=== PATIENT | female | born 1980 ===

== ENCOUNTER → 2022-01-10 13:57 | Outpatient (BNVA) | payer BC, MEDICAID, SELFPAY | PROVIDERS: PCP Family Medicine; Visit Provider Internal Medicine Gastroenterology | DX: R11.2 Nausea with vomiting, unspecified (principal); K90.0 Celiac disease; R11.15 Cyclical vomiting syndrome unrelated to migraine ==

== ENCOUNTER → 2022-01-10 13:57 | Outpatient (AMB) | payer BC, MEDICAID, SELFPAY ==
--- NOTE | 2022-01-10 14:00 | A.OFFVIS_ITS ---
Vital Signs 01/10/22 14:10 Height 5 ft 6 in Weight 172 lb BMI 27.7 BP 126/80 Blood Pressure Location Lt brachial Position Sitting Pulse 82 Intake Visit Reasons: hx diverticulosis, colon polyps, hip pain Intake Note: Roxanne presents in the office for Diverticulosis, Hx colon polyps and hip pain. CC: Hx for Precancerous polyps. Hip pain has been increasing since last night. Allergies cephalexin [CEPHALEXIN] Allergy (Intermediate, Verified 12/08/23 22:58) Rash erythromycin base [ERYTHROMYCIN BASE] Allergy (Intermediate, Verified 12/08/23 22:58) Rash/vomiting haloperidol [From HALDOL] Allergy (Intermediate, Verified 12/08/23 22:58) EYE ISSUES meclizine [MECLIZINE] Allergy (Intermediate, Verified 12/08/23 22:58) Vomiting Penicillins [PENICILLINS] Allergy (Intermediate, Verified 12/08/23 22:58) Rash/vomiting promethazine [Phenergan] Allergy (Intermediate, Verified 12/08/23 22:58) Vomiting Sulfa (Sulfonamide Antibiotics) Allergy (Intermediate, Verified 12/08/23 22:58) Rash sulfamethoxazole [From BACTRIM] Allergy (Intermediate, Verified 12/08/23 22:58) Rash trimethoprim [From BACTRIM] Allergy (Intermediate, Verified 12/08/23 22:58) Rash famotidine Allergy (Mild, Verified 12/08/23 22:58) Vomiting lorazepam [From ATIVAN] Adverse Reaction (Intermediate, Verified 12/08/23 22:58) PANIC ATTACKS/INCREASED ANXIETY methylprednisolone [METHYLPREDNISOLONE] Adverse Reaction (Intermediate, Verified 12/08/23 22:58) HYSTERIA, Psychosis prednisone [PREDNISONE] Adverse Reaction (Intermediate, Verified 12/08/23 22:58) Hallucinations sertraline [From ZOLOFT] Adverse Reaction (Intermediate, Verified 12/08/23 2 2:58) Depression doxycycline Adverse Reaction (Verified 12/08/23 22:58) Vomiting steroids Adverse Reaction (Mild, Uncoded 12/08/23 22:58) psychosis Medication List - Last Reconciled 01/10/22 by Carissa Llamas MD albuterol sulfate 90 mcg/actuation 1 inh inhalation Q4-6H PRN aspirin (Adult Aspirin Regimen) 81 mg PO DAILY baclofen 25 mg PO TID carbidopa 25 mg PO TID cholecalciferol (vitamin D3) 50 mcg PO DAILY docusate sodium (Colace) 100 mg PO DAILY drospirenone (contraceptive) (Slynd) 1 tab PO DAILY duloxetine 60 mg PO DAILY gabapentin 900 mg PO TID PRN levocetirizine 10 mg PO BID methylphenidate HCl 5 mg PO BID ondansetron 8 mg PO Q12H oxcarbazepine 300 mg PO TID oxycodone myristate ER (Xtampza ER) 9 mg PO BID sennosides (senna) 8.6 mg PO BID simethicone (Gas-X Extra Strength) 250 mg PO BID PRN HPI HPI hx diverticulosis, colon polyps, hip pain: Details: Urgent GI clinic visit for this 41 YF due to recurrent vomiting, abdominal gas and worsening hip pain Patient is followed in GI for dysphagia, odynophagia and celiac sprue. Last GI visit was in Jun 2019 for her colonoscopy 01/03/22 PT spoke to GI RN: pt reports multiple system issues. She has hip/leg/rectal pain which she has had x 2 years following a tick bite. Pt reports cardiac issue, cysts on her spine, high calcium level resulting in bone pain and dehydration. Pt receiving IV fluids weekly at [facility] HX tubular adenoma, diverticulosis. rectal pain with BM which pt describes as long and thin . Pt denies blood in stool or on paper. Advised pt to call her neurologist regarding hip and leg pain To contact her PCP for elevated Ca levels Pt asking for repeat colonoscopy, only wants to see Dr Llamas Pt scheduled for 01/18/[address] Llamas ?CHRONIC ILLNESSES: endometriosis, celiac disease, hip dysplasia, subcu taneous scalp nodules, cysts, MS, Mast cell disorder ?LABS IN [facility]: 04/30/19 NORMAL CBC WITH ELEVATED EOSINOPHIL COUNT OF 5.3%, NORMAL CHEM PANEL AND LFTS, ?ENDOSCOPIC STUDIES: 06/2019 COLONOSCOPY SHOWED: One 4-5 mm hyperplastic polyp removed Moderate diverticulosis seen in the sigmoid colon. Plan: Await pathology results Patient to schedule a FU appointment in the GI Clinic with Carissa Llamas M.D. 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 04/30/19 EGD SHOWED: ?ESOPHAGUS: Circumferential ulceration with thick exudate with adherent food in ?the proximal esophagus at 20 to 25 cms. Ulceration is likely due to pill ?esophagitis related to use of Doxycycline. Adherent food was scrapped off and ?biopsies were obtained. ?STOMACH: Undigested food in the stomach. ?DUODENUM: Normal ?Plan: ?Await pathology results ?Change doxycycline tablet to liquid formulation. ?Start sucralfate twice daily ?Patient to schedule a FU appointment in the GI Clinic with Carissa Llamas M.D ?Above findings were reviewed with the patient and her ?ADDENDUM: BIOPSIES SHOWED: ?Esophagus, proximal, biopsy: Active esophagitis with ulcer, fibrinopurulent exudate and superficial fungal pseudohyphae and yeast forms consistent with Aleksandra species(highlighted by a PASD stain); negative for intestinal metaplasia and dysplasia. ?Biopsy results discussed with the pt by phone and she was prescribed Fluconazole for esophageal Candidiasis. ?TODAY'S VISIT ?Patient is accompanied by her . Diagnosed with Mast cell activiation syndrome - fu with Dr Callahan Also followed in Mast cell Center at [facility] in [place]. When she has vomiting, she notes pain in the back of the head radiating all the way to her rectum Has constipation alternating with diarrhea. Feels sick if she does not have a BM. Notes rectal pressure and unable to empty completely. Intermittent leaking. BM are long and thin and come out fast. Sometimes they float or may be fragmented. Hurts to sit on the toilet. Has constipation 2 days in a week and has soft and thin BMs the remaining week. Takes Colace and senna for constipation. Able to go when she is hydrated. Occasional blood in the stool - ? due to hemorrhoids Has been getting fluids three times a week by Dr Callahan (Disability Manager) Dr Calderon is her yoghurt maker. Notes gas when she gets IV fluids. BM has been thin Having left hip pain for the past year - has been worse for the past month (Hx of congenital hip dyslasia). Unable to sit in the car - has to sit on pillows Hurts more when she has gas pains. 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 Diagnosed with Celiac disease and started a GFD. Taking acetaminophen and Citrizine for Mast cell disease She was on Ocrevus 300 mg IV every 6 months x 4 yrs for MS- stopped and she is being switched to a different medication. PAST VISITS: ?Had constant burning sensation after EGD which has slowly improved. ?Has a constant FB sensation in her throat. ?Continues to have some dysphagia and pdynophagia with a burning sensation in the upper esophagus. ?Having trouble swallowing large pills - gabapentin. ?Has burning sensation with spicy food if it gets stuck ?Finished taking Doxycycline before starting the Fluconazole. ?Appetite is decent. ?Eats a lot if she uses RSO (THC oil). ?Lost a lot of weight over the summer and weight gain of 25 lbs over the past few months. ?Cardiac or pulmonary problems: ?Problems/reaction to anesthetic agents: Denies problems after last EGD. ?History of colon polyps in her dad ?Paternal uncle had stage 4 colon cancer in his 40's. ?She was diagnosed with MS in August 2017 after a spinal tap. ?She is being followed by Dr. Martin (MS specialist) at [facility] and [place]. ?Takes Ocrelizumab (Ocrevus) infusion every 6 months, next infusion is scheduled on Jun 142019. ?PAST GI HISTORY BY REVIEW OF MEDICAL RECORDS: 10/[address] GI [address] note from Dr Dang ([facility]) was reviewed: Pt has a hx of MS, cyclic vomiting syndrome (without symptom free intervals), pancreatitis (presumed related to ETOH), endometriosis, anxiety, postconcussion syndrome, syncope, congenital hip dysplasia, insomnia and marijuana use Cyclical vomiting symptoms improved with carbidopa in the past Patient has chronic nausea and vomiting was felt to be multifactorial - dysautonomia, MS, GERD, possible CVS, marijuana use TCA were not recommended due to dysautonomia, dizziness and borderline QTC at 490 Patient was prescribed omeprazole 20 mg daily. RECORDS FROM [facility] AND [facility]ANNED: 11/2016 EGD AND COLON WERE PERFORMED BY DR LUU: 1. A single patch of gastric ectopic mucosa was seen in the upper 3rd of the esophagus. 2. Stomach and duodenum were normal. 3. A 5 mm sessile polyp was removed from the sigmoid colon. Biopsies showed a tubular adenoma. 4. Internal and external hemorrhoids BIOPSIES SHOWED: 1. Duodenal biopsies showed small bowel mucosa with variable villous blunting and increased intraepithelial lymphocytes. 2. Gastric biopsies showed focal chronic inflammation and no H pylori was detected. 3. Random colon biopsies were normal Mention of intra-abdominal lymphadenopathy on past CT scan PATIENT IS KNOWN TO ME FROM PAST ER VISIT TO [facility] WITH DYSPHAGIA ON 04/30/2019: ?38 YF with Celiac Sprue on a GFD, MS diagnosed in 2017 on 1v infusions every 6 months - next due on Jun 14, Syringomylia, ? Spinal cord tumor, Anxiety and depression, Recurrent MRSA skin infections, Dental caries, UGIB from [facility] in 07/20162. Pt evaluated for 2 day history of dysphagia and odynophagia after she ate a stalk of partially cooked Cauliflower. Symptoms are suggestive of food impaction. Pt may have EOE, esophageal motility disorder, Schatzki's ring or an inflammatory esophageal stricture. ?PLAN: ?FU of dysphgia and odynophagia related to suspected pill esophagitis (due to doxycycline) with superimposed esophageal candidiasis. She discontinued taking doxycycline. Patient is a finishing a 10 day course of fluconazole for esophageal candidiasis. She is requesting repeat EGD to confirm fungal infection has resolved prior to her next Ocrelizumab infusion. Of note- Ocrelizumab is associated with herpes infection in 5-6% of cases. Patient reports being diagnosed with celiac sprue 3 years ago. Course of celiac disease words discussed with her and she was given a patient had out on celiac disease from up-to-date during her previous visit.?? Pt was advised to continue Gluten Free Diet for Celiac Disease PFSH Surgical History Tubal ligation status Hx of colonoscopy History of esophagogastroduodenoscopy (EGD) Family History Father Peripheral arterial disease Maternal Grandfather Peripheral arterial disease Paternal Grandfather Peripheral arterial disease Social History Patient Tobacco Use Status: Current everyday Tobacco user Cigarettes Per Day: 5 Substance Use Type: Marijuana Review of Systems Const Reports fatigue, Denies fever(s), Reports headache(s), Reports weight gain and Denies weight loss Eyes Denies eye discharge and Denies irritation ENT Reports Normal hearing present, Reports dysphagia, Denies dizziness and Reports headache(s) Card Reports chest pain, Reports irregular heart rhythm, Denies leg edema, Denies dyspnea on exertion and Reports other (Palpitations) Resp Denies cough and Denies dyspnea on exertion GI Denies abdominal pain, Reports bloating, Denies change in bowel habits, Reports dysphagia, Reports early satiety, Reports heartburn, Reports nausea and Reports vomiting Denies difficulty voiding and Denies dysuria Musc Denies back pain, Reports arthralgias and Reports other (arthritis) Skin/Breast Denies pruritus, Reports rash and Denies jaundice Neuro Reports Normal hearing present, Denies Abnormal speech present, Denies dizzin ess, Reports headache(s), Reports seizure-like activity and Reports other (Memory issues due to MS) Psych Reports anxiety, Denies depression and Denies panic attacks Endo Denies cold intolerance, Reports fatigue, Denies flushing and Denies heat intolerance Physical Exam Vital Signs: Last Vital Signs Pulse 82 01/10/22 14:10 BP 126/80 01/10/22 14:10 BMI result Body Mass Index 27.7 Const General: healthy appearing and no acute distress Nutritional Appearance: overweight Orientation/consciousness: patient oriented x3 Limitations: physical limitations and wheelchair HEENT Head: Yes normal to inspection Ears: hearing grossly normal bilaterally Eyes Sclerae: sclerae normal Pupils: Equal, round and reactive pupils present Neck Neck: Yes normal visual inspection Chest Chest palpation & inspection: normal inspection of the chest Resp Effort & Inspection: normal respiratory effort Auscultation: clear to auscultation bilaterally Cardio Palpation: normal PMI Rate: regular rate Rhythm: regular rhythm Heart sounds: S1 normal heart sound present, S2 normal heart sound present and no murmurs GI Palpation (GI): Soft to palpation, nontender and No hepatosplenomegaly present Auscultation: normal bowel sounds Rectal Exam - Female: deferred Skin General skin exam: no rashes or lesions noted Neuro General: patient oriented x3, gait normal and moves all extremities Cranial nerves: Yes Equal, round and reactive pupils present and Yes Normal hearing present Speech: No Abnormal speech present Psych Appearance: grossly normal Mental Status: mental status grossly normal Assessment & Plan Assessment & Plan (1) Nausea and vomiting: Code(s): R11.2 - Nausea with vomiting, unspecified Category: Medical (2) Celiac disease: Code(s): K90.0 - Celiac disease Category: Medical (3) Cyclical vomiting syndrome: Code(s): R11.15 - Cyclical vomiting syndrome unrelated to migraine Category: Medical Plan Unfortunate 38 YF with MS complicated by seizure disorder, memory problems, endometriosis, celiac disease, hip dysplasia, subcutaneous scalp nodules, cysts last seen in Jun, 2019. Pt was previously seen for FU of dysphgia and odynophagia related to suspected pill esophagitis (due to doxycycline) with superimposed esophageal candidiasis. She discontinue taking doxycycline. And completed a 10 day course of fluconazole for esophageal candidiasis. Pt requested repeat EGD to confirm fungal infection had resolved prior to her next Ocrelizumab infusion. Of note- Ocrelizumab is associated with herpes infection in 5-6% of cases. Patient reports being diagnosed with celiac sprue year ago and denies having follow-up labs or EGD. Course of celiac disease words discussed with her and she was given a patient had out on celiac disease from up-to-date. 04/2019 EGD was performed and the results as noted above. Pt has a hx of MS, cyclic vomiting syndrome (without symptom free intervals), pancreatitis (presumed related to ETOH), endometriosis, anxiety, postconcussion syndrome, syncope, congenital hip dysplasia, insomnia and hx of marijuana use Cyclical vomiting symptoms improved with carbidopa in the past Patient has chronic nausea and vomiting was felt to be multifactorial - dysautonomia, MS, GERD, possible CVS, marijuana use TCA was not recommended due to dysautonomia, dizziness and borderline QTC at 490 Pt was advised to schedule a sigmoidoscopy for evaluation of rectal pain Orders: Orders Fecal Fat Qualitative 01/10/22 R19.7 - Diarrhea, unspecified, K59.09 - Other constipation Pancreatic Elastase-1 01/10/22 R19.7 - Diarrhea, unspecified, K59.09 - Other constipation Medications: New ondansetron 8 mg PO Q12H simethicone (Gas-X Extra Strength) 250 mg PO BID PRN Coding Level of Care Code Est Pt Level 4 (56388) Diagnoses Nausea and vomiting R11.2 Celiac disease K90.0 Cyclical vomiting syndrome R11.15 Time Spent (min) 45
[2022-01-10 14:10] VITALS: BP 126/80; PULSE 82; BMI 27.7
== END ==
PROVIDERS: PCP Family Medicine; Visit Provider Internal Medicine Gastroenterology
DX: R11.2 Nausea with vomiting, unspecified (principal); K90.0 Celiac disease; R11.15 Cyclical vomiting syndrome unrelated to migraine
CPT/HCPCS: 99499

== ENCOUNTER 2022-02-15 12:32 | Day surgery (SDC) | payer BC, MEDICAID, SELFPAY ==
--- NOTE | 2022-02-15 13:07 | HO.ANESPROP2 ---
[facility] Active Problems Active Problems: All Active Problems (Updated 01/11/22 @ 16:29 by Carissa Llamas MD) Celiac disease (Acute) Dysphagia, pharyngoesophageal phase (Acute) Nausea and vomiting (Acute) Intermittent diarrhea (Acute) Intermittent constipation (Acute) Multiple sclerosis (Acute) Cyclical vomiting syndrome (Acute) Past Medical History Functional capacity: uses cane/walker Family History Family History Father Peripheral arterial disease Maternal Grandfather Peripheral arterial disease Paternal Grandfather Peripheral arterial disease Surgical History Surgical History History of esophagogastroduodenoscopy (EGD) Hx of colonoscopy Tubal ligation status History of Problems with Anesthesia: No Social History Social History Patient Tobacco Use Status: Current everyday Tobacco user Cigarettes Per Day: 5 Use of substances other than those prescribed or required for medical reasons: Yes Substance Use Frequency: Weekly Are you DNR?: No Advance Directives: No Advance Directives Information Provided: Yes Meds Allergies Allergy/AdvReac Type Severity Reaction Status Date / Time cephalexin [CEPHALEXIN] Allergy Intermediate Rash Unverified 02/15/22 13:17 erythromycin base Allergy Intermediate Rash/vomiti Unverified 02/15/22 13:17 [ERYTHROMYCIN BASE] ng haloperidol [From HALDOL] Allergy Intermediate EYE ISSUES Unverified 01/10/22 14:02 meclizine [MECLIZINE] Allergy Intermediate Vomiting Unverified 02/15/22 13:17 Penicillins [PENICILLINS] Allergy Intermediate Rash/vomiti Unverified 02/15/22 13:17 ng promethazine [Phenergan] Allergy Intermediate Vomiting Verified 02/15/22 13:17 Sulfa (Sulfonamide Allergy Intermediate Rash Verified 02/15/22 13:17 Antibiotics) sulfamethoxazole Allergy Intermediate Rash Unverified 02/15/22 13:17 [From BACTRIM] trimethoprim [From BACTRIM] Allergy Intermediate Rash Unverified 02/15/22 13:17 famotidine Allergy Mild Vomiting Verified 02/15/22 13:17 lorazepam [From ATIVAN] AdvReac Intermediate PANIC Unverified 01/10/22 14:02 ATTACKS/INCREASED ANXIETY methylprednisolone AdvReac Intermediate HYSTERIA, Unverified 02/15/22 13:17 [METHYLPREDNISOLONE] Psychosis prednisone [PREDNISONE] AdvReac Intermediate Hallucinati Unverified 02/15/22 13:17 ons sertraline [From ZOLOFT] AdvReac Intermediate Depression Unverified 02/15/22 13:17 doxycycline AdvReac Vomiting Verified 02/15/22 13:17 steroids AdvReac Mild psychosis Uncoded 01/10/22 14:02 Home Medications Medication Instructions Recorded Confirmed Last Taken Type albuterol sulfate 90 mcg/actuation 1 inh inhalation Q4-6H PRN Wheezing 01/10/22 02/15/22 Unknown History breath activated powder inhaler aspirin 81 mg tablet,delayed 81 mg PO DAILY 01/10/22 02/15/22 02/15/22 History release (Adult Aspirin Regimen) baclofen 10 mg tablet 25 mg PO TID 01/10/22 02/15/22 02/15/22 History carbidopa 25 mg tablet 25 mg PO TID 01/10/22 02/15/22 02/15/22 History cholecalciferol (vitamin D3) 50 50 mcg PO DAILY 01/10/22 02/15/22 02/15/22 History mcg (2,000 unit) capsule docusate sodium 100 mg capsule 100 mg PO DAILY 01/10/22 02/15/22 Unknown History (Colace) drospirenone (contraceptive) 4 mg 1 tab PO DAILY 01/10/22 02/15/22 Unknown History (28) tablet (Slynd) duloxetine 60 mg capsule,delayed 60 mg PO DAILY 01/10/22 02/15/22 02/15/22 History release gabapentin 300 mg capsule 900 mg PO TID PRN Pain 01/10/22 02/15/22 02/15/22 History levocetirizine 5 mg tablet 10 mg PO BID 01/10/22 02/15/22 02/15/22 History methylphenidate HCl 5 mg tablet 5 mg PO BID 01/10/22 02/15/22 02/15/22 History ondansetron 8 mg disintegrating 8 mg PO Q12H 01/10/22 02/15/22 Unknown History tablet oxcarbazepine 300 mg tablet 300 mg PO TID 01/10/22 02/15/22 02/15/22 History oxycodone myristate 9 mg capsule 9 mg PO BID 01/10/22 02/15/22 02/15/22 History sprinkle extended release 12 hr(DON'T CRUSH) (Xtampza ER) sennosides 8.6 mg capsule (senna) 8.6 mg PO BID 01/10/22 02/15/22 Unknown History simethicone 125 mg capsule (Gas-X 250 mg PO BID PRN Constipation 01/10/22 02/15/22 Unknown History Extra Strength) tizanidine 4 mg tablet 4 mg PO TID 02/15/22 02/15/22 02/15/22 History Exam Exam Date and Time: February 15, 2022 1307 Airway Mallampati Class: II TM Dist: >3cm Neck ROM: Full Loose/Missing/Broken Teeth: No Heart: RRR Lungs: CTA Assessment and Plan Assessment Anesthesia Assessment: Anesthesia Plan Discussed and Chart Reviewed Final Anesthetic Review History of Problems with Anesthesia: No NPO: Yes ASA Class: III Final Preanesthetic Review: Meds/Allgs Chart Reviewed, Consent Obtained/Reviewed and Anes Risks/Benef Reviewed Patient Risk: Intermediate Procedure Risk: Low Anesthetic Plan Anesthetic Plan: MAC: Disposition: Standard PACU
[2022-02-15 13:20] VITALS: BP 125/64; PULSE 85; RESP 20; TEMP 36.9; O2SAT 97; BMI 27.7
--- NOTE | 2022-02-15 13:31 | MHC.SHP ---
Pre-Procedural Eval Section A Date of Service: 02/15/22 The patient is an INPATIENT: No The History & Physical has been completed within 30 days and I have reviewed it.: No Section B Chief Complaint: Rectal pain Details of Present Illness: rectal pain Relevant Family History (Specify if Yes): No Present Medications: see Short Stay Collaborative assessment Medical History: Significant History ( Celiac disease, multiple sclerosis) History of Previous Operations: Relevant previous surgery/procedure and date(s) (History of esophagogastroduodenoscopy (EGD) Hx of colonoscopy) Allergies: Allergies Allergy/AdvReac Type Severity Reaction Status Date / Time cephalexin [CEPHALEXIN] Allergy Intermediate Rash Unverified 02/15/22 13:17 erythromycin base Allergy Intermediate Rash/vomiti Unverified 02/15/22 13:17 [ERYTHROMYCIN BASE] ng haloperidol [From HALDOL] Allergy Intermediate EYE ISSUES Unverified 01/10/22 14:02 meclizine [MECLIZINE] Allergy Intermediate Vomiting Unverified 02/15/22 13:17 Penicillins [PENICILLINS] Allergy Intermediate Rash/vomiti Unverified 02/15/22 13:17 ng promethazine [Phenergan] Allergy Intermediate Vomiting Verified 02/15/22 13:17 Sulfa (Sulfonamide Allergy Intermediate Rash Verified 02/15/22 13:17 Antibiotics) sulfamethoxazole Allergy Intermediate Rash Unverified 02/15/22 13:17 [From BACTRIM] trimethoprim [From BACTRIM] Allergy Intermediate Rash Unverified 02/15/22 13:17 famotidine Allergy Mild Vomiting Verified 02/15/22 13:17 lorazepam [From ATIVAN] AdvReac Intermediate PANIC Unverified 01/10/22 14:02 ATTACKS/INCREASED ANXIETY methylprednisolone AdvReac Intermediate HYSTERIA, Unverified 02/15/22 13:17 [METHYLPREDNISOLONE] Psychosis prednisone [PREDNISONE] AdvReac Intermediate Hallucinati Unverified 02/15/22 13:17 ons sertraline [From ZOLOFT] AdvReac Intermediate Depression Unverified 02/15/22 13:17 doxycycline AdvReac Vomiting Verified 02/15/22 13:17 steroids AdvReac Mild psychosis Uncoded 01/10/22 14:02 Review of Systems Sugical H&P ROS: Negative: Constitution, Cardiovascular and Respiratory and Yes, Specify: Gastrointestinal and Musculoskeletal (hip and leg pain) Exam Surgical H&P Exam: Normal: Heart, Normal: Lungs and Normal: Abdomen Plan Diagnosis/Plan: Change (Proceed with flexible sigmoidoscopy) I have reviewed the history and physical and performed a pertinent physical examination on my patient. No changes have occurred unless specified.
--- NOTE | 2022-02-15 13:32 | P.BOP_ITS ---
Brief Operative Note Date of Service: 02/15/22 Pre-op diagnosis: rectal pain Post-op diagnosis: other (sigmoid diverticulosis, small hemorrhoids) Procedure: FLEXIBLE SIGMOIDOSCOPY TILL 25 CMS WITH BIOPSIES Consent: Indications for the procedure and potential complications of bleeding, perforation, reaction to medications and missed diagnosis were discussed with the patient and informed consent was obtained. Instrument: Olympus GIF H 190 upper endoscopy Monitoring: Vital signs and clinical assessment, intermittent blood pressure monitoring, continuous EKG monitoring, Pulse oximetry and Carbon Dioxide monitoring were done throughout the procedure. Procedure: The patient was placed in the left lateral decubitis position and pre-procedure medications were administered. After a digital rectal examination of the ano-rectum, the video colonoscope was inserted into the rectum and advanced through the colon to the cecum. The colonoscope was slowly withdrawn in a retrograde panoramic fashion and the colon mucosa was carefully examined including a retroflexed view of the rectum. Findings and interventions are described below. Findings: Sigmoid Colon: Moderate diverticulosis Rectum: Normal Ano-rectum: Moderate internal hemorrhoids Colon preparation: Fair Impression and Post Procedure Diagnosis: Colonoscopy Findings: Normal rectal mucosa without proctitis Moderate diverticulosis seen in the sigmoid colon Small hemorrhoids on retroflexed exam. No active anal fissure was visualized. Plan: Letter will be sent with pathology results Repeat Colonoscopy interval based on path results - in 6 years if biopsies are normal. Above findings were reviewed with the patient and Hemorrhoids handouts was given in the discharge area Pt advised Sitz baths and HC+ Lidocaine cream for rectal pain. Surgeon: Carissa Llamas MD Anesthesia: MAC (Dr Maria) Was an Shelter Supervisor used for this Procedure?: Yes Shelter Supervisor: Rina Graham Estimated blood loss (mL): 0 Pathology: other (a. rectosigmoid bxs r/o microscopic colitis) Condition: stable Disposition: PACU
--- NOTE | 2022-02-15 13:51 | W.PM.OPN ---
Operative Note Operative Note Date of Service: 02/15/22 Narrative: Pre-op diagnosis: rectal pain Post-op diagnosis:?other (sigmoid diverticulosis, small hemorrhoids) Procedure: ?FLEXIBLE SIGMOIDOSCOPY TILL 25 CMS WITH BIOPSIES Consent: Indications for the procedure and potential complications of bleeding, perforation, reaction to medications and missed diagnosis were discussed with the patient and informed consent was obtained. Instrument: Olympus GIF H 190? upper endoscopy Monitoring: Vital signs and clinical assessment, intermittent blood pressure monitoring, continuous EKG monitoring, Pulse oximetry and Carbon Dioxide monitoring were done throughout the procedure. Procedure: The patient was placed in the left lateral decubitis position and pre-procedure medications were administered. After a digital rectal examination of the ano-rectum, the video colonoscope was inserted into the rectum and advanced through the colon to the cecum. The colonoscope was slowly withdrawn in a retrograde panoramic fashion and the colon mucosa was carefully examined including a retroflexed view of the rectum. Findings and interventions are described below. Findings: Sigmoid Colon:? Moderate diverticulosis Rectum:? Normal Ano-rectum:? Moderate internal hemorrhoids Colon preparation: Fair Impression and Post Procedure Diagnosis: Colonoscopy Findings: Normal rectal mucosa without proctitis Moderate diverticulosis seen in the sigmoid colon Small hemorrhoids on retroflexed exam. No active anal fissure was visualized. Plan: Letter will be sent with pathology results Repeat Colonoscopy interval based on path results - in 6 years if biopsies are normal. Above findings were reviewed with the patient and Hemorrhoids handouts was given in the discharge area Pt advised Sitz baths and HC+ Lidocaine cream for rectal pain. Surgeon: Carissa Llamas MD Anesthesia:?MAC (Dr Maria) Was an Tool And Die Repair used for this Procedure?:?Yes Tool And Die Repair:?Rina Graham Estimated blood loss (mL):?0 Pathology:?other (a. rectosigmoid bxs r/o microscopic colitis) Condition:?stable Disposition:?PACU
--- NOTE | 2022-02-15 13:51 | PC.NURSE ---
Patient informed of need for 2 fleet enems and stated I am having excrutiating pain anytime i use the bathroom, I am pretty sure I have some kind of fistula down there now and will need pain meds before you give me those. Dr Llamas informed, per not to give fleets.
[2022-02-15 14:13] VITALS: BP 114/68; PULSE 77; RESP 20; TEMP 36.6; O2SAT 98
[2022-02-15 14:29] VITALS: BP 116/75; PULSE 69; RESP 12; O2SAT 100
[2022-02-15 14:44] VITALS: BP 129/81; PULSE 71; RESP 14; TEMP 36.6; O2SAT 98
== END 2022-02-15 15:55 | disposition home health service (06) ==
PROVIDERS: PCP Family Medicine; Visit Provider Internal Medicine Gastroenterology
PROC: 0DJD8ZZ Inspection of Lower Intestinal Tract, Via Natural or Artificial Opening Endoscopic (ICD-10-PCS; CPT 45330; principal; 2022-02-15 13:30)
DX: K62.89 Other specified diseases of anus and rectum (principal); Z86.010 Personal history of colon polyps; R11.2 Nausea with vomiting, unspecified; K57.30 Diverticulosis of large intestine without perforation or abscess without bleeding; K64.8 Other hemorrhoids; K90.0 Celiac disease; K21.9 Gastro-esophageal reflux disease without esophagitis; D89.40 Mast cell activation, unspecified; G35 Multiple sclerosis; G90.1 Familial dysautonomia [Riley-Day]; N80.9 Endometriosis, unspecified; M25.552 Pain in left hip; Q65.89 Other specified congenital deformities of hip; Z86.19 Personal history of other infectious and parasitic diseases; Z79.82 Long term (current) use of aspirin; Z79.899 Other long term (current) drug therapy; Z88.0 Allergy status to penicillin; Z88.1 Allergy status to other antibiotic agents; Z88.2 Allergy status to sulfonamides; Z88.8 Allergy status to other drugs, medicaments and biological substances; F17.210 Nicotine dependence, cigarettes, uncomplicated; F12.90 Cannabis use, unspecified, uncomplicated
CPT/HCPCS: 45331; 88305

== ENCOUNTER 2023-03-11 08:24 | Emergency (ER) | payer BC, MEDICAID, SELFPAY ==
[2023-03-11] VITALS (7 sets, daily range): BP systolic 111–140; BP diastolic 65–96; PULSE 82–126; RESP 14–17; TEMP 37.3; O2SAT 97–99; BMI 25.8
--- NOTE | 2023-03-11 09:53 | PC.NURSE ---
pt a&o x4, calm, and cooperative. comes in with multiple complaints, BL arm weakness x2 weeks, MS flare up, broken tooth pain. pt partner at bedside. awaiting to be seen by provider. asking for fluids and ABX.
--- NOTE | 2023-03-11 10:31 | ED.GENADULT ---
HPI - General Adult General Chief complaint: General Medical Stated complaint: facial infection? Time Seen by Provider: 03/11/23 09:32 Source: patient Mode of arrival: ambulatory History of Present Illness HPI narrative: 42-year-old female who presents with concerns for possible facial infection and begins to tell me about her history of MS and dysautonomia. Patient states that she has followed up with her specialists last month and does have monthly appointments with them but is unsure of her next appointment. Patient feels that the pain infection may be secondary to a tooth infection. Patient has not discussed any of her recent symptoms with her primary care provider or specialist. Related Data Home Medications Medication Instructions Recorded Confirmed albuterol sulfate 90 mcg/actuation 1 inh inhalation Q4-6H PRN Wheezing 01/10/22 02/15/22 breath activated powder inhaler aspirin 81 mg tablet,delayed 81 mg PO DAILY 01/10/22 02/15/22 release (Adult Aspirin Regimen) baclofen 10 mg tablet 25 mg PO TID 01/10/22 02/15/22 carbidopa 25 mg tablet 25 mg PO TID 01/10/22 02/15/22 cholecalciferol (vitamin D3) 50 50 mcg PO DAILY 01/10/22 02/15/22 mcg (2,000 unit) capsule docusate sodium 100 mg capsule 100 mg PO DAILY 01/10/22 02/15/22 (Colace) drospirenone (contraceptive) 4 mg 1 tab PO DAILY 01/10/22 02/15/22 (28) tablet (Slynd) duloxetine 60 mg capsule,delayed 60 mg PO DAILY 01/10/22 02/15/22 release gabapentin 300 mg capsule 900 mg PO TID PRN Pain 01/10/22 02/15/22 levocetirizine 5 mg tablet 10 mg PO BID 01/10/22 02/15/22 methylphenidate HCl 5 mg tablet 5 mg PO BID 01/10/22 02/15/22 ondansetron 8 mg disintegrating 8 mg PO Q12H 01/10/22 02/15/22 tablet oxcarbazepine 300 mg tablet 300 mg PO TID 01/10/22 02/15/22 oxycodone myristate 9 mg capsule 9 mg PO BID 01/10/22 02/15/22 sprinkle extended release 12 hr(DON'T CRUSH) (Xtampza ER) sennosides 8.6 mg capsule (senna) 8.6 mg PO BID 01/10/22 02/15/22 simethicone 125 mg capsule (Gas-X 250 mg PO BID PRN Constipation 01/10/22 02/15/22 Extra Strength) tizanidine 4 mg tablet 4 mg PO TID 02/15/22 02/15/22 Previous Rx's Medication Instructions Recorded [id number] vera 1 appl RI BID 30 days #100 grams 02/15/22 2.8 %-0.55 % rectal gel clindamycin HCl 300 mg capsule 450 mg (1.5 x 300 mg) PO Q8H 7 03/11/23 days #32 caps Allergies Allergy/AdvReac Type Severity Reaction Status Date / Time cephalexin [CEPHALEXIN] Allergy Intermediate Rash Unverified 02/15/22 13:17 erythromycin base Allergy Intermediate Rash/vomiti Unverified 02/15/22 13:17 [ERYTHROMYCIN BASE] ng haloperidol [From HALDOL] Allergy Intermediate EYE ISSUES Unverified 01/10/22 14:02 meclizine [MECLIZINE] Allergy Intermediate Vomiting Unverified 02/15/22 13:17 Penicillins [PENICILLINS] Allergy Intermediate Rash/vomiti Unverified 02/15/22 13:17 ng promethazine [Phenergan] Allergy Intermediate Vomiting Verified 02/15/22 13:17 Sulfa (Sulfonamide Allergy Intermediate Rash Verified 02/15/22 13:17 Antibiotics) sulfamethoxazole Allergy Intermediate Rash Unverified 02/15/22 13:17 [From BACTRIM] trimethoprim [From BACTRIM] Allergy Intermediate Rash Unverified 02/15/22 13:17 famotidine Allergy Mild Vomiting Verified 02/15/22 13:17 lorazepam [From ATIVAN] AdvReac Intermediate PANIC Unverified 01/10/22 14:02 ATTACKS/INCREASED ANXIETY methylprednisolone AdvReac Intermediate HYSTERIA, Unverified 02/15/22 13:17 [METHYLPREDNISOLONE] Psychosis prednisone [PREDNISONE] AdvReac Intermediate Hallucinati Unverified 02/15/22 13:17 ons sertraline [From ZOLOFT] AdvReac Intermediate Depression Unverified 02/15/22 13:17 doxycycline AdvReac Vomiting Verified 02/15/22 13:17 steroids AdvReac Mild psychosis Uncoded 01/10/22 14:02 Review of Systems Review of Systems: Pertinent positives and negatives as stated in [facility] Past Medical History Source: nursing notes reviewed Surgical History Tubal ligation status Hx of colonoscopy History of esophagogastroduodenoscopy (EGD) Family History Family History Father Peripheral arterial disease Maternal Grandfather Peripheral arterial disease Paternal Grandfather Peripheral arterial disease Social History Social History Patient Tobacco Use Status: Current everyday Tobacco user Cigarettes Per Day: 5 Smoked in Last 30 Days: Yes Use of substances other than those prescribed or required for medical reasons: Yes Substance Use Type: Marijuana Substance Use Frequency: Daily Advance Directives: No Advance Directives Information Provided: No Physical Exam ED Vital Signs: Vital Signs - 24 hr 03/11/23 09:09 03/11/23 10:42 03/11/23 10:43 Temperature 99.2 F Pulse Rate 115 H 94 94 Respiratory Rate 17 14 Blood Pressure 140/96 H 123/82 123/82 Pulse Oximetry 99 97 Oxygen Delivery Method Room Air Room Air 03/11/23 10:44 03/11/23 10:45 03/11/23 12:02 Temperature Pulse Rate 92 105 H 82 Respiratory Rate 14 Blood Pressure 129/81 138/81 111/65 Pulse Oximetry 97 Oxygen Delivery Method Room Air 03/11/23 13:18 Temperature Pulse Rate 126 H Respiratory Rate 16 Blood Pressure 132/76 Pulse Oximetry 99 Oxygen Delivery Method Room Air BMI result Body Mass Index 25.8 VITAL SIGNS: Reviewed. GENERAL: Well developed, well nourished, in no acute distress. HEAD: Normocephalic/atraumatic EYES: PERRLA, EOMI EARS: Ext canals without abnormality, TMs non-bulging and non-erythematous NOSE: Nares patent bilateral OROPHARYNX: no oral lesions noted, posterior pharynx clear, there is noted cavity to the posterior portion of the tooth without gingival swelling or fluctuance I do not appreciate any associated facial erythema or induration. NECK: Supple, no adenopathy LUNGS: Normal breath sounds. No adventitious sounds or accessory muscle use. SpO2<99> CARDIOVASCULAR: Regular rate and rhythm without noted murmurs ABDOMEN: Soft, non-tender, non-distended with bowel sounds. MUSCULOSKELETAL: No tenderness, deformities, or effusions noted on gross inspection. EXTREMITIES: No cyanosis, clubbing or edema. SKIN: Inspection of the skin reveals no rashes NEUROLOGIC: Alert and oriented x 4. Strength and sensation to light touch were grossly intact x 4. Medications Administered Discontinued Medications Generic Name Dose Route Start Last Admin Trade Name Freq PRN Reason Stop Dose Admin Sodium Chloride 1,000 mls @ 999 mls/hr 03/11/23 11:15 03/11/23 11:14 Ns IV 03/11/23 12:15 999 mls/hr .Q1H1M RUFUS Administration Medical Decision Making Medical Decision Making [facility] Narrative: This is a 42-year-old female with history and clinical presentation, DDX: Cyclical vomiting, viral illness, dehydration I obtained records from [facility] and there is lab work from 03/07 that includes a CBC as well as chemistries and on my review there is no evidence of infection, anemia, thrombocytopenia, no evidence of low sodium, CARMENZA or electrolytes abnormalities. There are also no liver enzyme derangements. Patient also has had recent MRI in October of this year which did not show any active lesions. Patient demanding 1 L of IV fluids which was provided. I reviewed all investigations and hematologic indices are negative for leukocytosis or left shift, no anemia or thrombocytopenia. Chemistry indices are negative for CARMENZA or electrolyte or liver enzyme derangements. ESR and CRP are within normal limits, strep testing is negative as well as negative COVID-19 and influenza. On re-evaluation patient is feeling somewhat better after the L of fluids, her heart rate has improved. She is concerned about her tooth pain which is reasonable and she understands that there is no evidence of acute infection but she may have some a problem with the roots of the tooth and currently is medicating with a clove oil that helps provide pain control. She was provided with information to follow up with the dental services at [facility]. As an extra level of precaution will place patient on oral antibiotics, clindamycin, which she received 1st dose here in the emergency room. Differential Diagnosis Differential Diagnoses: The differential diagnosis associated with the presentation includes Please see the discussion above Admission/Observation Consideration of admission/observation: Escalation of care including admission/observation considered Please see the discussion above Lab Data MDM Lab Attestation statement: I reviewed the patient's lab results. Please see the discussion above 03/11/23 10:33 03/11/23 10:33 Labs: Lab Results 03/11/23 03/11/23 Range/Units 10:33 12:08 WBC 6.9 (4.8-10.8) X10*3/uL RBC 4.06 L (4.20-5.50) X10*6/uL Hgb 13.3 (12.0-16.0) g/dl Hct 38.3 (37.0-47.0) % MCV 94.3 (80.0-98.0) fL MCH 32.8 (27.0-33.0) pg MCHC 34.7 (31.0-35.0) g/dl RDW 14.6 (11.0-16.0) % Plt Count 301 (160-400) X10*3/uL MPV 9.4 (9.4-12.3) fL Immature Gran % (Auto) 0.3 (0.0-0.4) % Neut % (Auto) 67.7 (45-73) % Lymph % (Auto) 19.9 L (20-40) % Orange % (Auto) 6.7 (2-11) % Eos % (Auto) 4.7 H (0-4) % Baso % (Auto) 0.7 (0-2) % Lymph # (Auto) 1.4 (1.2-4.9) X10*3/uL Orange # (Auto) 0.5 (0.1-1.2) X10*3/uL Eos # (Auto) 0.3 (0.0-0.4) X10*3/uL Baso # (Auto) 0.1 (0.0-0.2) X10*3/uL Abs Immat Gran (auto) 0.02 (0.00-0.03) X10*3/uL Absolute Neuts (auto) 4.7 (2.0-8.3) x10*3/uL Absolute Nucleated RBC 0.000 (0.0-0.012) X10*3/uL Nucleated RBC % (auto) 0.0 (0.0-0.2) /100WBC ESR 6 (0-20) MM/HR Sodium 137 (135-145) mmol/L Potassium 3.9 (3.3-5.1) mmol/L Chloride 105 (96-108) mmol/L Carbon Dioxide 22 (22-29) mmol/L Anion Gap 14 (12-20) BUN 7 L (9-16) mg/dL Creatinine 0.70 (0.5-1.4) mg/dL Estim Creat Clear Calc 108.9 Estimated GFR > 60 Random Glucose 163 H (60-115) mg/dL Calcium 9.7 (8.4-10.2) mg/dL Total Bilirubin 0.2 (0.0-1.0) mg/dL AST 14 (5-31) U/L ALT < 5 (0-31) U/L Alkaline Phosphatase 89 (39-117) U/L C-Reactive Protein 0.20 (< or = 0.50) mg/dL Total Protein 6.8 (6.5-8.0) g/dL Albumin 4.4 (3.5-5.0) g/dL Beta HCG, Quant < 2 mIU/mL Urine Color Yellow Urine Appearance Cloudy Urine pH 7.0 (5.0-9.0) Ur Specific [place] 1.020 (1.005-1.025) Urine Protein Negative (Neg-Trace) mg/dL Urine Glucose (UA) Negative (Negative) mg/dL Urine Ketones Negative (Negative) mg/dL Urine Blood Negative (Negative) Urine Nitrite Negative (Negative) Ur Leukocyte Esterase Negative (Negative) Urine Opiates Screen POSITIVE H (Not Detect) Urine Fentanyl Screen Not Detected (Not Detect) Ur Barbiturates Screen Not Detected (Not Detect) Ur Phencyclidine Scrn Not Detected (Not Detect) Ur Amphetamines Screen Not Detected (Not Detect) U Benzodiazepines Scrn Not Detected (Not Detect) Urine Cocaine Screen Not Detected (Not Detect) U Marijuana (THC) Screen POSITIVE H (Not Detect) COVID-19 (TERRA) Negative (Negative) COVID-19 Clin Com See Note Influenza Type A (AKASH) Negative (Negative) Influenza Type B (AKASH) Negative (Negative) Influenza A & B Note See Note S. pyogenes GrpA AKASH Negative (Negative) Independent Interpretation I performed an independent interpretation of an: EKG Interpretation: Normal sinus rhythm, HR-91, no STEMI, RI/QRS/QTC is within normal limits. External Record Review External record reviewed: Outpatient record, Prior outpatient labs, Prior outpatient radiology and Outside ED record Critical Care Time Critical Care Time Critical Care Time: Yes Total Critical Care Time: 30 Attestation: I personally attest to this time spent taking care of the patient. Discharge Plan Discharge Clinical Impression: Cyclical vomiting syndrome, Dehydration, Dental infection Patient Disposition: Home, Self-Care Instructions: Toothache (ED), Cyclic Vomiting Syndrome (ED) Additional Instructions: 1. Resume all home medications as prescribed. 2. Please complete the course of antibiotics as ordered and follow up with the dental referral that we have provided you today. 3. Please remember to ask your exhaust machine operator to provide [facility] with your care plan for subsequent visits. 4. Please follow-up with your primary care doctor. Return to the ER for any worsening symptoms. Prescriptions: New clindamycin HCl 300 mg capsule 450 mg PO Q8H 7 Days Qty: 32 0RF No Action xnjwqphbb-eakpuwvpqggkwo-bhwi 2.8-0.55 % gel 1 appl RI BID 30 Days Qty: 100 0RF tizanidine 4 mg Tablet 4 mg PO TID albuterol sulfate 90 mcg/actuation aerosol powdr breath activated 1 inh inhalation Q4-6H PRN (Reason: Wheezing) Xtampza ER 9 mg cap,sprinkl,ER12hr(DONT CRUSH) 9 mg PO BID baclofen 10 mg tablet 25 mg PO TID gabapentin 300 mg capsule 900 mg PO TID PRN (Reason: Pain) carbidopa 25 mg tablet 25 mg PO TID levocetirizine 5 mg tablet 10 mg PO BID duloxetine 60 mg capsule,delayed release(DR/EC) 60 mg PO DAILY methylphenidate HCl 5 mg tablet 5 mg PO BID Slynd 4 mg (28) tablet 1 tab PO DAILY oxcarbazepine 300 mg tablet 300 mg PO TID cholecalciferol (vitamin D3) 50 mcg (2,000 unit) capsule 50 mcg PO DAILY senna 8.6 mg capsule 8.6 mg PO BID docusate sodium [Colace] 100 mg capsule 100 mg PO DAILY aspirin [Adult Aspirin Regimen] 81 mg tablet,delayed release (DR/EC) 81 mg PO DAILY ondansetron 8 mg tablet,disintegrating 8 mg PO Q12H simethicone [Gas-X Extra Strength] 125 mg capsule 250 mg PO BID PRN (Reason: Constipation) Referrals: Anmol Garza MD [Primary Care Provider] -
--- NOTE | 2023-03-11 11:37 | PC.NURSE ---
pt requesting Dr. Orr to leave code so that she can call her doctor before he goes to court. when told pt I would not be able to do that due to the critical condition of the pt, the pt requested this RN to interrupt Dr. Orr in the code to tell her that it's urgent to call her doctor. the pt was told that that would not be appropriate either. pt was told to rest comfortably until Dr. Orr is able to talk to the pt's doctor.
== END 2023-03-11 15:26 | disposition home or self-care (01) ==
PROVIDERS: Emergency Provider Student in an Organized Health Care Education/Training Program; PCP Family Medicine
DX: R11.15 Cyclical vomiting syndrome unrelated to migraine (principal); E86.0 Dehydration; K04.7 Periapical abscess without sinus; G90.1 Familial dysautonomia [Riley-Day]; F17.210 Nicotine dependence, cigarettes, uncomplicated; Z11.52 Encounter for screening for COVID-19; Z20.822 Contact with and (suspected) exposure to COVID-19; Z79.899 Other long term (current) drug therapy; Z71.6 Tobacco abuse counseling
CPT/HCPCS: 36415; 80053; 80307; 81003; 84702; 85025; 85652; 86140; 87502; 87635; 87651; 93005; 96360; 96361; 99285

== ENCOUNTER 2023-11-15 11:13 | Emergency (ER) | payer BC, MEDICAID, SELFPAY ==
[2023-11-15 11:17] VITALS: BP 124/89; PULSE 120; RESP 16; TEMP 36.2; O2SAT 97; BMI 25.8
--- NOTE | 2023-11-15 11:18 | ED.GENADULT ---
HPI - General Adult General Chief complaint: General Medical Stated complaint: sores in mouth Time Seen by Provider: 11/15/23 11:39 Source: patient, RN notes reviewed and old records reviewed Mode of arrival: ambulatory History of Present Illness ED Provider: Trinidad Castillo PA-C HPI narrative: 43-year-old female with a past medical history of MS, osteoarthritis on methotrexate, dysautonomia, psoriasis, on prednisone taper and Z-el recently, presenting to the ED complaining of 7-10 days of painful mouth sores, and generalized fatigue. Reports chronic fatigue from MS, unchanged. Denies known fever, chills, CP/SOB, abdominal pain, difficulty/inability to swallow Related Data Home Medications ?Medication ?Instructions ?Recorded ?Confirmed albuterol sulfate 90 mcg/actuation 1 inh inhalation Q4-6H PRN Wheezing 01/10/22 02/15/22 breath activated powder inhaler aspirin 81 mg tablet,delayed 81 mg PO DAILY 01/10/22 02/15/22 release (Adult Aspirin Regimen) baclofen 10 mg tablet 25 mg PO TID 01/10/22 02/15/22 carbidopa 25 mg tablet 25 mg PO TID 01/10/22 02/15/22 cholecalciferol (vitamin D3) 50 50 mcg PO DAILY 01/10/22 02/15/22 mcg (2,000 unit) capsule docusate sodium 100 mg capsule 100 mg PO DAILY 01/10/22 02/15/22 (Colace) drospirenone (contraceptive) 4 mg 1 tab PO DAILY 01/10/22 02/15/22 (28) tablet (Slynd) duloxetine 60 mg capsule,delayed 60 mg PO DAILY 01/10/22 02/15/22 release gabapentin 300 mg capsule 900 mg PO TID PRN Pain 01/10/22 02/15/22 levocetirizine 5 mg tablet 10 mg PO BID 01/10/22 02/15/22 methylphenidate HCl 5 mg tablet 5 mg PO BID 01/10/22 02/15/22 ondansetron 8 mg disintegrating 8 mg PO Q12H 01/10/22 02/15/22 tablet oxcarbazepine 300 mg tablet 300 mg PO TID 01/10/22 02/15/22 oxycodone myristate 9 mg capsule 9 mg PO BID 01/10/22 02/15/22 sprinkle extended release 12 hr(DON'T CRUSH) (Xtampza ER) sennosides 8.6 mg capsule (senna) 8.6 mg PO BID 01/10/22 02/15/22 simethicone 125 mg capsule (Gas-X 250 mg PO BID PRN Constipation 01/10/22 02/15/22 Extra Strength) tizanidine 4 mg tablet 4 mg PO TID 02/15/22 02/15/22 Previous Rx's ?Medication ?Instructions ?Recorded dzcenymez-cghohobubqpona-souy vera 1 appl MO BID 30 days #100 grams 02/15/22 2.8 %-0.55 % rectal gel clindamycin HCl 300 mg capsule 450 mg (1.5 x 300 mg) PO Q8H 7 03/11/23 days #32 caps Allergies Allergy/AdvReac Type Severity Reaction Status Date / Time cephalexin [CEPHALEXIN] Allergy Intermediate Rash Verified 11/15/23 11:20 erythromycin base Allergy Intermediate Rash/vomiti Verified 11/15/23 11:20 [ERYTHROMYCIN BASE] ng haloperidol [From HALDOL] Allergy Intermediate EYE ISSUES Verified 11/15/23 11:20 meclizine [MECLIZINE] Allergy Intermediate Vomiting Verified 11/15/23 11:20 Penicillins [PENICILLINS] Allergy Intermediate Rash/vomiti Verified 11/15/23 11:20 ng promethazine [Phenergan] Allergy Intermediate Vomiting Verified 11/15/23 11:20 Sulfa (Sulfonamide Allergy Intermediate Rash Verified 11/15/23 11:20 Antibiotics) sulfamethoxazole Allergy Intermediate Rash Verified 11/15/23 11:20 [From BACTRIM] trimethoprim [From BACTRIM] Allergy Intermediate Rash Verified 11/15/23 11:20 famotidine Allergy Mild Vomiting Verified 11/15/23 11:20 lorazepam [From ATIVAN] AdvReac Intermediate PANIC Verified 11/15/23 11:20 ATTACKS/INCREASED ANXIETY methylprednisolone AdvReac Intermediate HYSTERIA, Verified 11/15/23 11:20 [METHYLPREDNISOLONE] Psychosis prednisone [PREDNISONE] AdvReac Intermediate Hallucinati Verified 11/15/23 11:20 ons sertraline [From ZOLOFT] AdvReac Intermediate Depression Verified 11/15/23 11:20 doxycycline AdvReac Vomiting Verified 11/15/23 11:20 steroids AdvReac Mild psychosis Uncoded 11/15/23 11:17 Review of Systems Review of Systems: Constitutional: +fatigue, No Fever, No Chills ENT/Mouth: +mouth sores, No Ear Pain, No Nasal Congestion, No Sinus Pain, No Hoarseness, No sore throat, No Rhinorrhea, No Swallowing Difficulty Cardiovascular: No Chest Pain, No SOB Respiratory: No Cough, No Sputum, No Wheezing Gastrointestinal: No Nausea, No Vomiting, No Diarrhea, No Constipation, No Abdominal pain Musculoskeletal: No joint pain, + Myalgias, No Joint Swelling Skin: No Skin Lesions, No rash Neuro: No Weakness, No Numbness Yes all other systems are reviewed and are negative Constitutional: Constitutional: Reports as per [facility] Past Medical History Attestation statement: The following information was validated with the patient. Source: old records reviewed Surgical History Tubal ligation status Hx of colonoscopy History of esophagogastroduodenoscopy (EGD) Family History Family History Father Peripheral arterial disease Maternal Grandfather Peripheral arterial disease Paternal Grandfather Peripheral arterial disease Social History Social History Patient Tobacco Use Status: Current everyday Tobacco user Cigarettes Per Day: 5 Substance Use Type: Marijuana Advance Directives: No Advance Directives Information Provided: Yes Do you have a plan to hurt others: No Plan Physical Exam ED Vital Signs: Vital Signs - 24 hr 11/15/23 11:17 Temperature 97.1 F Pulse Rate 120 H Respiratory Rate 16 Blood Pressure 124/89 Pulse Oximetry 97 Oxygen Delivery Method Room Air BMI result Body Mass Index 25.8 Const General: cooperative, healthy appearing, no acute distress and anxious Orientation/consciousness: patient oriented x3 Limitations: no limitations HENMT Other: + stomatitis noted to hard palate. No cellulitis, no fluctuance/induration. Poor dentition. Head: Yes normal to inspection and Yes atraumatic Ears: hearing grossly normal bilaterally, external ears normal, TM's normal bilaterally and mastoids normal General nose exam: Normal external nose present Face and sinus: Yes normal facial exam Mouth: no drooling, no muffled voice and other Throat: Yes uvula midline, No peritonsillar mass, No uvula laterally displaced and No uvular edema Eyes General: appearance normal, both eyes and all related structures EOM: EOMs intact bilaterally Neck Neck: Yes normal visual inspection and Yes no meningeal signs Resp Effort & Inspection: normal respiratory effort, no respiratory distress and no stridor Cardio Rate: regular rate Heart sounds: S1 normal heart sound present and S2 normal heart sound present GI Inspection: Yes normal to inspection Skin Rashes: no rashes Wounds: no wounds Neuro General: patient oriented x3, tone normal, moves all extremities and no meningeal signs Cranial nerves: Yes CN's II-XII intact bilaterally Gait exam (Neuro): Normal gait present Extrem General: Yes normal to inspection Course Course Course Narrative: This is a Rapid Medical Examination (RME) performed by Damaris Schuster PA-C in triage. Full HPI, ROS, assessment and treatment plan per primary provider in the Main ED. 43 yo female with history of MS, severe osteoarthritis on methotrexate and chronic prednisone (recently increased to 20 mg), history of dysautonomia, history of psoriasis, possible psoriatic arthritis who presents to the ER for evaluation of 10 days of mouth sores along with fatigue, weakness. Plan: -1226--no leukocytosis. Labs otherwise unremarkable -1440--UA negative. Viral testing negative Results discussed with patient including worrisome signs and symptoms and strict return precautions, and when to return to the emergency department. They verbalized understanding and feel safe for discharge at this time. Medications Administered Discontinued Medications Generic Name Dose Route Start Last Admin Trade Name Freq PRN Reason Stop Dose Admin Lidocaine/Diphenhydr/Alum/Mg/Simeth 10 ml 11/15/23 12:04 11/15/23 12:13 Mag&Al/Sim/Diphenhyd/Lidocaine 10 Ml Oral.Susp PO 11/15/23 12:05 10 ml ONCE ONE Administration Protocol Medical Decision Making Medical Decision Making MDM Narrative: 43-year-old female with a past medical history of MS, osteoarthritis on methotrexate, dysautonomia, psoriasis, on prednisone taper and Z-el recently, presenting to the ED complaining of 7-10 days of painful mouth sores, and generalized fatigue. On exam tachycardic, anxious, NAD/nontoxic appearing. RO wounds consistent with stomatitis. No evidence of cellulitis, or abscess formation. Rule out metabolic/infectious etiology including dehydration. Lower suspicion for MS/OA flare. Unlikely PE/ACS Plan: EKG, labs, UA, viral testing ordered in triage Please refer to course for remaining clinical decision making, interpretation of labs/imaging results, and discussions with consultants and/or family members. Differential Diagnosis Differential Diagnoses: The differential diagnosis associated with the presentation includes As above Admission/Observation Consideration of admission/observation: Escalation of care including admission/observation considered Lab Data MDM Lab Attestation statement: I reviewed the patient's lab results. 11/15/23 11:33 11/15/23 11:33 Labs: Lab Results 11/15/23 11/15/23 Range/Units 11:33 14:06 WBC 10.8 (4.8-10.8) X10*3/uL RBC 4.50 (4.20-5.50) X10*6/uL Hgb 14.6 (12.0-16.0) g/dl Hct 40.9 (37.0-47.0) % MCV 90.9 (80.0-98.0) fL MCH 32.4 (27.0-33.0) pg MCHC 35.7 H (31.0-35.0) g/dl RDW 13.6 (11.0-16.0) % Plt Count 344 (160-400) X10*3/uL MPV 9.3 L (9.4-12.3) fL Immature Gran % (Auto) 0.3 (0.0-0.4) % Neut % (Auto) 73.5 H (45-73) % Lymph % (Auto) 15.1 L (20-40) % [place] % (Auto) 7.5 (2-11) % Eos % (Auto) 3.1 (0-4) % Baso % (Auto) 0.5 (0-2) % Lymph # (Auto) 1.6 (1.2-4.9) X10*3/uL [place] # (Auto) 0.8 (0.1-1.2) X10*3/uL Eos # (Auto) 0.3 (0.0-0.4) X10*3/uL Baso # (Auto) 0.1 (0.0-0.2) X10*3/uL Abs Immat Gran (auto) 0.03 (0.00-0.03) X10*3/uL Absolute Neuts (auto) 8.0 (2.0-8.3) x10*3/uL Absolute Nucleated RBC 0.000 (0.0-0.012) X10*3/uL Nucleated RBC % (auto) 0.0 (0.0-0.2) /100WBC Sodium 139 (135-145) mmol/L Potassium 4.7 (3.3-5.1) mmol/L Chloride 108 (96-108) mmol/L Carbon Dioxide 22 (22-29) mmol/L Anion Gap 14 (12-20) BUN 9 (9-16) mg/dL Creatinine 0.73 (0.5-1.4) mg/dL Estim Creat Clear Calc 103.4 Estimated GFR > 60 Random Glucose 107 (60-115) mg/dL Calcium 10.3 H D (8.4-10.2) mg/dL Magnesium 2.0 (1.6-2.6) mg/dL Total Bilirubin 0.2 (0.0-1.0) mg/dL Direct Bilirubin < 0.2 (0.0-0.5) mg/dL AST 13 (5-31) U/L ALT < 5 (0-31) U/L Alkaline Phosphatase 87 (39-117) U/L Total Protein 7.6 (6.5-8.0) g/dL Albumin 4.8 (3.5-5.0) g/dL Urine Color Yellow Urine Appearance Clear Urine pH 6.0 (5.0-9.0) Ur Specific [place] >= 1.030 H (1.005-1.025) Urine Protein Negative (Neg-Trace) mg/dL Urine Glucose (UA) Negative (Negative) mg/dL Urine Ketones Trace (Negative) mg/dL Urine Blood Negative (Negative) Urine Nitrite Negative (Negative) Ur Leukocyte Esterase Negative (Negative) Influenza Type A (PCR) NEGATIVE (Negative) Influenza Type B (PCR) NEGATIVE (Negative) RSV RNA Qual (PCR) NEGATIVE (Negative) SARS-CoV-2 RNA (RT-PCR) NEGATIVE (Negative) Independent Interpretation I performed an independent interpretation of an: EKG Radiology Impression Discussion of test interpretation with radiology: I have reviewed the radiologist's reading. External Record Review External record reviewed: Inpatient record, Office record, Outpatient record, Prior outpatient labs, Prior outpatient radiology, Primary care record and Outside ED record Tests considered The following testing was considered but not selected: As above Prescription Management I considered prescription management with: Antibiotic Chronic Conditions Patient?s care impacted by: Other (OA, MS) Discharge Plan Discharge Clinical Impression: Stomatitis Patient Disposition: Home, Self-Care Prescriptions: No Action lgrtwzoro-thrbdcqkgbukyl-hlwe 2.8-0.55 % gel 1 appl MO BID 30 Days Qty: 100 0RF tizanidine 4 mg Tablet 4 mg PO TID clindamycin HCl 300 mg capsule 450 mg PO Q8H 7 Days Qty: 32 0RF albuterol sulfate 90 mcg/actuation aerosol powdr breath activated 1 inh inhalation Q4-6H PRN (Reason: Wheezing) Xtampza ER 9 mg cap,sprinkl,ER12hr(DONT CRUSH) 9 mg PO BID baclofen 10 mg tablet 25 mg PO TID gabapentin 300 mg capsule 900 mg PO TID PRN (Reason: Pain) carbidopa 25 mg tablet 25 mg PO TID levocetirizine 5 mg tablet 10 mg PO BID duloxetine 60 mg capsule,delayed release(DR/EC) 60 mg PO DAILY methylphenidate HCl 5 mg tablet 5 mg PO BID Slynd 4 mg (28) tablet 1 tab PO DAILY oxcarbazepine 300 mg tablet 300 mg PO TID cholecalciferol (vitamin D3) 50 mcg (2,000 unit) capsule 50 mcg PO DAILY senna 8.6 mg capsule 8.6 mg PO BID docusate sodium [Colace] 100 mg capsule 100 mg PO DAILY aspirin [Adult Aspirin Regimen] 81 mg tablet,delayed release (DR/EC) 81 mg PO DAILY ondansetron 8 mg tablet,disintegrating 8 mg PO Q12H simethicone [Gas-X Extra Strength] 125 mg capsule 250 mg PO BID PRN (Reason: Constipation) Print Language: Divehi
[2023-11-15 11:40] LABS: MANUAL DIFF FLAG NO
[2023-11-15 11:41] LABS: Basophils Absolute Auto 0.1 X10*3/uL (0.0-0.2); Basophils Percent Auto 0.5 % (0-2); Eosinophils Absolute Auto 0.3 X10*3/uL (0.0-0.4); Eosinophils Percent Auto 3.1 % (0-4); Hematocrit 40.9 % (37.0-47.0); Hemoglobin 14.6 g/dl (12.0-16.0); Imm Gran Abs Auto 0.03 X10*3/uL (0.00-0.03); Imm Gran Pct Auto 0.3 % (0.0-0.4); Lymphocytes Absolute Auto 1.6 X10*3/uL (1.2-4.9); Lymphocytes Percent Auto 15.1 % (20-40); Mean Corpuscular HGB Conc 35.7 g/dl (31.0-35.0); Mean Corpuscular Hemoglobin 32.4 pg (27.0-33.0); Mean Corpuscular Volume 90.9 fL (80.0-98.0); Mean Platelet Volume 9.3 fL (9.4-12.3); Monocytes Absolute Auto 0.8 X10*3/uL (0.1-1.2); Monocytes Percent Auto 7.5 % (2-11); Neutrophils Percent Auto 73.5 % (45-73); Platelet Count 344 X10*3/uL (160-400); Red Cell Distribution Width 13.6 % (11.0-16.0); White Blood Count 10.8 X10*3/uL (4.8-10.8)
--- NOTE | 2023-11-15 11:48 | ECG_ITS ---
Test Reason : TACHY Blood Pressure : / mmHG Vent. Rate : 093 BPM Atrial Rate : 093 BPM P-R Int : 150 ms QRS Dur : 086 ms QT Int : 334 ms P-R-T Axes : 061 076 047 degrees QTc Int : 415 ms Normal sinus rhythm Normal ECG When compared with ECG of 11-MAR-2023 10:20, No significant change was found Referred By: Trinidad Castillo Electronically Signed By:EDMOND LEAL
[2023-11-15] MEDS: Mag&Al/Sim/Diphenhyd/Lidocaine 10 ML ORAL.SUSP PO (12:13)
[2023-11-15 12:17] LABS: Alanine Aminotransferase < 5 U/L (0-31); Albumin Level 4.8 g/dL (3.5-5.0); Alkaline Phosphatase 87 U/L (39-117); Anion Gap 14 (12-20); Aspartate Amino Transferase 13 U/L (5-31); Bilirubin Direct < 0.2 mg/dL (0.0-0.5); Bilirubin Total 0.2 mg/dL (0.0-1.0); Blood Urea Nitrogen 9 mg/dL (9-16); Calcium 10.3 mg/dL (8.4-10.2); Carbon Dioxide 22 mmol/L (22-29); Chloride 108 mmol/L (96-108); Creatinine Clr Calc Pharmacy 103.4; Estimated Glomerular Filt Rate > 60; Glucose Random 107 mg/dL (60-115); Potassium 4.7 mmol/L (3.3-5.1); Sodium 139 mmol/L (135-145); Total Protein 7.6 g/dL (6.5-8.0)
[2023-11-15 12:32] LABS: Influenza A PCR NEGATIVE (Negative); Influenza B PCR NEGATIVE (Negative); Resp Syncy Virus RNA Qual PCR NEGATIVE (Negative); SARS COV2 PCR INHOUSE NEGATIVE (Negative)
[2023-11-15 14:16] LABS: Appearance Urine Clear; Color Urine Yellow; Glucose Urine UA Negative (Negative); Leukocyte Esterase Urine Negative (Negative); Nitrite Urine Negative (Negative); Specific Gravity - Urine >= 1.030 (1.005-1.025); Urine Blood Negative (Negative); Urine Ketones Trace mg/dL (Negative); Urine Protein Negative (Neg-Trace)
[2023-11-15 14:42] VITALS: PULSE 81; RESP 20; O2SAT 95
[2023-11-15 14:56] VITALS: BP 103/79; PULSE 81; RESP 20; TEMP 36.2; O2SAT 95
== END 2023-11-15 14:57 | disposition home or self-care (01) ==
PROVIDERS: Physician Assistant; Emergency Provider Emergency Medicine Emergency Medical Services; PCP Family Medicine
DX: K12.1 Other forms of stomatitis (principal); R00.0 Tachycardia, unspecified; R53.83 Other fatigue; G35 Multiple sclerosis; K90.0 Celiac disease; Z79.82 Long term (current) use of aspirin; Z79.899 Other long term (current) drug therapy; Z03.818 Encounter for observation for suspected exposure to other biological agents ruled out
CPT/HCPCS: 0241U; 36415; 80048; 80076; 81003; 83735; 85025; 93005; 99283

== ENCOUNTER → 2023-11-15 11:48 | Outpatient (BNV) | payer BC, MEDICAID, SELFPAY | PROVIDERS: Emergency Provider Emergency Medicine Emergency Medical Services; PCP Family Medicine; Visit Provider Internal Medicine | DX: R00.0 Tachycardia, unspecified (principal) | CPT/HCPCS: 93010 ==

== ENCOUNTER 2023-12-08 22:50 | Emergency (ER) | payer BC, MEDICAID, SELFPAY ==
[2023-12-08 22:55] VITALS: BP 117/86; PULSE 83; RESP 20; TEMP 36.6; O2SAT 97; BMI 25.8
[2023-12-09 02:06] VITALS: BP 114/71; PULSE 79; RESP 16; TEMP 36.7; O2SAT 98
--- NOTE | 2023-12-09 05:23 | ED.SKABFB ---
HPI - Skin/Abscess/Foreign Bdy General Chief complaint: Skin/Abscess/Foreign Body Stated complaint: cellulitis, immunocompromised Time Seen by Provider: 12/09/23 05:23 Source: patient Mode of arrival: ambulatory Limitations: no limitations History of Present Illness ED Provider: jaylin WICK narrative: Patient's history of psoriasis having new lesion in the left heel for last few days on doxycycline for possible cellulitis feels lesion is getting worse also does get small lesions in the palm no fever no chills no open wounds Related Data Home Medications ?Medication ?Instructions ?Recorded ?Confirmed albuterol sulfate 90 mcg/actuation 1 inh inhalation Q4-6H PRN Wheezing 01/10/22 02/15/22 breath activated powder inhaler aspirin 81 mg tablet,delayed 81 mg PO DAILY 01/10/22 02/15/22 release (Adult Aspirin Regimen) baclofen 10 mg tablet 25 mg PO TID 01/10/22 02/15/22 carbidopa 25 mg tablet 25 mg PO TID 01/10/22 02/15/22 cholecalciferol (vitamin D3) 50 50 mcg PO DAILY 01/10/22 02/15/22 mcg (2,000 unit) capsule docusate sodium 100 mg capsule 100 mg PO DAILY 01/10/22 02/15/22 (Colace) drospirenone (contraceptive) 4 mg 1 tab PO DAILY 01/10/22 02/15/22 (28) tablet (Slynd) duloxetine 60 mg capsule,delayed 60 mg PO DAILY 01/10/22 02/15/22 release gabapentin 300 mg capsule 900 mg PO TID PRN Pain 01/10/22 02/15/22 levocetirizine 5 mg tablet 10 mg PO BID 01/10/22 02/15/22 methylphenidate HCl 5 mg tablet 5 mg PO BID 01/10/22 02/15/22 ondansetron 8 mg disintegrating 8 mg PO Q12H 01/10/22 02/15/22 tablet oxcarbazepine 300 mg tablet 300 mg PO TID 01/10/22 02/15/22 oxycodone myristate 9 mg capsule 9 mg PO BID 01/10/22 02/15/22 sprinkle extended release 12 hr(DON'T CRUSH) (Xtampza ER) sennosides 8.6 mg capsule (senna) 8.6 mg PO BID 01/10/22 02/15/22 simethicone 125 mg capsule (Gas-X 250 mg PO BID PRN Constipation 01/10/22 02/15/22 Extra Strength) tizanidine 4 mg tablet 4 mg PO TID 02/15/22 02/15/22 Previous Rx's ?Medication ?Instructions ?Recorded hetcnwylb-jnazsidrnoellj-qzrl vera 1 appl IA BID 30 days #100 grams 02/15/22 2.8 %-0.55 % rectal gel clindamycin HCl 300 mg capsule 450 mg (1.5 x 300 mg) PO Q8H 7 03/11/23 days #32 caps Magic Mouthwash 10 ml PO TID PRN pain (scale score 11/15/23 Diphen/Lido/Antacid 1:1:1 240 mL 4-6) 7 days #210 mL suspension clobetasol 0.05 % topical ointment 1 appl topical BID #45 grams 12/09/23 Allergies Allergy/AdvReac Type Severity Reaction Status Date / Time cephalexin [CEPHALEXIN] Allergy Intermediate Rash Verified 12/08/23 22:58 erythromycin base Allergy Intermediate Rash/vomiti Verified 12/08/23 22:58 [ERYTHROMYCIN BASE] ng haloperidol [From HALDOL] Allergy Intermediate EYE ISSUES Verified 12/08/23 22:58 meclizine [MECLIZINE] Allergy Intermediate Vomiting Verified 12/08/23 22:58 Penicillins [PENICILLINS] Allergy Intermediate Rash/vomiti Verified 12/08/23 22:58 ng promethazine [Phenergan] Allergy Intermediate Vomiting Verified 12/08/23 22:58 Sulfa (Sulfonamide Allergy Intermediate Rash Verified 12/08/23 22:58 Antibiotics) sulfamethoxazole Allergy Intermediate Rash Verified 12/08/23 22:58 [From BACTRIM] trimethoprim [From BACTRIM] Allergy Intermediate Rash Verified 12/08/23 22:58 famotidine Allergy Mild Vomiting Verified 12/08/23 22:58 lorazepam [From ATIVAN] AdvReac Intermediate PANIC Verified 12/08/23 22:58 ATTACKS/INCREASED ANXIETY methylprednisolone AdvReac Intermediate HYSTERIA, Verified 12/08/23 22:58 [METHYLPREDNISOLONE] Psychosis prednisone [PREDNISONE] AdvReac Intermediate Hallucinati Verified 12/08/23 22:58 ons sertraline [From ZOLOFT] AdvReac Intermediate Depression Verified 12/08/23 22:58 doxycycline AdvReac Vomiting Verified 12/08/23 22:58 steroids AdvReac Mild psychosis Uncoded 12/08/23 22:58 Review of Systems Review of Systems: Yes all other systems are reviewed and are negative REPLACED BY [facility] Past Medical History Surgical History Tubal ligation status Hx of colonoscopy History of esophagogastroduodenoscopy (EGD) Family History Family History Father Peripheral arterial disease Maternal Grandfather Peripheral arterial disease Paternal Grandfather Peripheral arterial disease Social History Social History Patient Tobacco Use Status: Current everyday Tobacco user Cigarettes Per Day: 5 Smoked in Last 30 Days: No Substance Use Type: Marijuana Substance Use Type Other:: vapes Substance Use Frequency: Daily Last Used Substance: Unknown Any prior treatment program specific to substance use: No Advance Directives: No Advance Directives Information Provided: Yes Do you have a plan to hurt others: No Plan Physical Exam Vital Signs: Vital Signs: Last Vital Signs Temp 97.7 F 12/09/23 05:51 Pulse 85 12/09/23 05:51 Resp 16 12/09/23 05:51 BP 118/64 12/09/23 05:51 Pulse Ox 99 12/09/23 05:51 O2 Del Method Room Air 12/09/23 05:51 BMI result Body Mass Index 25.8 Extrem: Ankle/foot/toe images: 1. 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 You may continue doxycycline Prescriptions: New clobetasol 0.05 % ointment 1 appl topical BID Qty: 45 0RF No Action akeaxexmf-lakncpsixuhwre-oyfe 2.8-0.55 % gel 1 appl IA BID 30 Days Qty: 100 0RF tizanidine 4 mg Tablet 4 mg PO TID clindamycin HCl 300 mg capsule 450 mg PO Q8H 7 Days Qty: 32 0RF Magic Mouthwash Diphen/Lido/Antacid 1:1:1 240 mL suspension 10 ml PO TID PRN (Reason: pain (scale score 4-6)) 7 Days Qty: 210 0RF Rx Instructions: Lidocaine Viscous 2 % 80mL; diphenhydramine 12.5 mg/5 mL 80mL; aluminum-mag hydrox-simeth [id number]-50iv/5mL 80mL SWISH & SPIT albuterol sulfate 90 mcg/actuation aerosol powdr breath activated 1 inh inhalation Q4-6H PRN (Reason: Wheezing) Xtampza ER 9 mg cap,sprinkl,ER12hr(DONT CRUSH) 9 mg PO BID baclofen 10 mg tablet 25 mg PO TID gabapentin 300 mg capsule 900 mg PO TID PRN (Reason: Pain) carbidopa 25 mg tablet 25 mg PO TID levocetirizine 5 mg tablet 10 mg PO BID duloxetine 60 mg capsule,delayed release(DR/EC) 60 mg PO DAILY methylphenidate HCl 5 mg tablet 5 mg PO BID Slynd 4 mg (28) tablet 1 tab PO DAILY oxcarbazepine 300 mg tablet 300 mg PO TID cholecalciferol (vitamin D3) 50 mcg (2,000 unit) capsule 50 mcg PO DAILY senna 8.6 mg capsule 8.6 mg PO BID docusate sodium [Colace] 100 mg capsule 100 mg PO DAILY aspirin [Adult Aspirin Regimen] 81 mg tablet,delayed release (DR/EC) 81 mg PO DAILY ondansetron 8 mg tablet,disintegrating 8 mg PO Q12H simethicone [Gas-X Extra Strength] 125 mg capsule 250 mg PO BID PRN (Reason: Constipation) Interventions: ED Discharge Assessment Last Done: 12/09/23 05:47 Discharge Date/Time: 12/09/23 05:49 Print Language: Armenian
[2023-12-09 05:47] VITALS: BP 118/64; PULSE 85; RESP 16; TEMP 36.5; O2SAT 99
[2023-12-09 05:51] VITALS: BP 118/64; PULSE 85; RESP 16; TEMP 36.5; O2SAT 99
== END 2023-12-09 05:49 | disposition home or self-care (01) ==
PROVIDERS: Emergency Provider Internal Medicine; PCP Family Medicine
DX: L40.8 Other psoriasis (principal); L98.9 Disorder of the skin and subcutaneous tissue, unspecified
CPT/HCPCS: 99283; 99284

== ENCOUNTER 2024-07-12 15:42 | Emergency (ER) | payer BC, MEDICAID, SELFPAY ==
--- NOTE | ~2024-07-12 | XR_ITS ---
CLINICAL HISTORY: pain, injury 4 view left knee Comparison: None Findings: Bones intact. No dislocations. No significant loss of joint space, osteophytes, or erosions. No joint effusion. No radiopaque foreign body. IMPRESSION: 1. No acute findings. This document has been electronically signed by: Avani Valverde MD on 07/12/2024 17:42:01
--- NOTE | ~2024-07-12 | XR_ITS ---
CLINICAL HISTORY: pain 3 view, pelvis and left hip Comparison: None Findings: No acute fracture or dislocation. There is mild arthritic change. The soft tissues are unremarkable. IMPRESSION: No acute findings. This document has been electronically signed by: Avani Valverde MD on 07/12/2024 17:40:59
[2024-07-12 16:18] VITALS: BP 123/83; PULSE 95; RESP 18; TEMP 36.6; O2SAT 96; BMI 25.2
--- NOTE | 2024-07-12 16:19 | ED_ITS ---
HPI - General Adult General Chief complaint: Extremity Problem Stated complaint: Bone pain, sores on feet - sent by Time Seen by Provider: 07/12/24 22:30 Source: patient Limitations: no limitations History of Present Illness ED Provider: Jazzy Kaur PA-C HPI narrative: The patient is a 43-year-old female with a history of cyclic vomiting syndrome, multiple sclerosis, chronic constipation, celiac disease, dysautonomia, osteoarthritis with chronic pain, presents with ongoing left hip pain. Per the patient's report she was advised to come to the emergency department by her primary care provider to rule out ?left hip infection?. History extremely limited as the patient has quite hostile and belligerent. Related Data Home Medications ?Medication ?Instructions ?Recorded ?Confirmed albuterol sulfate 90 mcg/actuation 1 inh inhalation Q4-6H PRN Wheezing 01/10/22 02/15/22 breath activated powder inhaler aspirin 81 mg tablet,delayed 81 mg PO DAILY 01/10/22 02/15/22 release (Adult Aspirin Regimen) baclofen 10 mg tablet 25 mg PO TID 01/10/22 02/15/22 carbidopa 25 mg tablet 25 mg PO TID 01/10/22 02/15/22 cholecalciferol (vitamin D3) 50 50 mcg PO DAILY 01/10/22 02/15/22 mcg (2,000 unit) capsule docusate sodium 100 mg capsule 100 mg PO DAILY 01/10/22 02/15/22 (Colace) drospirenone (contraceptive) 4 mg 1 tab PO DAILY 01/10/22 02/15/22 (28) tablet (Slynd) duloxetine 60 mg capsule,delayed 60 mg PO DAILY 01/10/22 02/15/22 release gabapentin 300 mg capsule 900 mg PO TID PRN Pain 01/10/22 02/15/22 levocetirizine 5 mg tablet 10 mg PO BID 01/10/22 02/15/22 methylphenidate HCl 5 mg tablet 5 mg PO BID 01/10/22 02/15/22 ondansetron 8 mg disintegrating 8 mg PO Q12H 01/10/22 02/15/22 tablet oxcarbazepine 300 mg tablet 300 mg PO TID 01/10/22 02/15/22 oxycodone myristate 9 mg capsule 9 mg PO BID 01/10/22 02/15/22 sprinkle extended release 12 hr(DON'T CRUSH) (Xtampza ER) sennosides 8.6 mg capsule (senna) 8.6 mg PO BID 01/10/22 02/15/22 simethicone 125 mg capsule (Gas-X 250 mg PO BID PRN Constipation 01/10/22 02/15/22 Extra Strength) tizanidine 4 mg tablet 4 mg PO TID 02/15/22 02/15/22 Previous Rx's ?Medication ?Instructions ?Recorded pruwwtwbo-vsljzlsbopoeko-ekeo vera 1 appl DC BID 30 days #100 grams 02/15/22 2.8 %-0.55 % rectal gel clindamycin HCl 300 mg capsule 450 mg (1.5 x 300 mg) PO Q8H 7 03/11/23 days #32 caps Magic Mouthwash 10 ml PO TID PRN pain (scale score 11/15/23 Diphen/Lido/Antacid 1:1:1 240 mL 4-6) 7 days #210 mL suspension clobetasol 0.05 % topical ointment 1 appl topical BID #45 grams 12/09/23 Allergies Allergy/AdvReac Type Severity Reaction Status Date / Time cephalexin [CEPHALEXIN] Allergy Intermediate Rash Verified 07/12/24 16:23 erythromycin base Allergy Intermediate Rash/vomiti Verified 07/12/24 16:23 [ERYTHROMYCIN BASE] ng haloperidol [From HALDOL] Allergy Intermediate EYE ISSUES Verified 07/12/24 16:23 meclizine [MECLIZINE] Allergy Intermediate Vomiting Verified 07/12/24 16:23 Penicillins [PENICILLINS] Allergy Intermediate Rash/vomiti Verified 07/12/24 16:23 ng promethazine [Phenergan] Allergy Intermediate Vomiting Verified 07/12/24 16:23 Sulfa (Sulfonamide Allergy Intermediate Rash Verified 07/12/24 16:23 Antibiotics) sulfamethoxazole Allergy Intermediate Rash Verified 07/12/24 16:23 [From BACTRIM] trimethoprim [From BACTRIM] Allergy Intermediate Rash Verified 07/12/24 16:23 famotidine Allergy Mild Vomiting Verified 07/12/24 16:23 lorazepam [From ATIVAN] AdvReac Intermediate PANIC Verified 07/12/24 16:23 ATTACKS/INCREASED ANXIETY methylprednisolone AdvReac Intermediate HYSTERIA, Verified 07/12/24 16:23 [METHYLPREDNISOLONE] Psychosis prednisone [PREDNISONE] AdvReac Intermediate Hallucinati Verified 07/12/24 16:23 ons sertraline [From ZOLOFT] AdvReac Intermediate Depression Verified 07/12/24 16:23 doxycycline AdvReac Vomiting Verified 07/12/24 16:23 steroids AdvReac Mild psychosis Uncoded 07/12/24 16:23 Review of Systems 2 Review of Systems: Unable to obtain as the patient keeps interrupting, while I am attempting to relay results to were and obtain further history Yes all other systems are reviewed and are negative [facility] Past Medical History Attestation statement: The following information was validated with the patient. Surgical History Tubal ligation status Hx of colonoscopy History of esophagogastroduodenoscopy (EGD) Family History Family History Father Peripheral arterial disease Maternal Grandfather Peripheral arterial disease Paternal Grandfather Peripheral arterial disease Social History Social History Patient Tobacco Use Status: Current everyday Tobacco user Cigarettes Per Day: 5 Substance Use Type: Marijuana Advance Directives: No Advance Directives Information Provided: No Do you have a plan to hurt others: No Plan Patient : No Physical Exam ED Vital Signs: Vital Signs - 24 hr 07/12/24 16:18 07/13/24 00:00 Temperature 97.9 F 97.9 F Pulse Rate 95 79 Respiratory Rate 18 20 Blood Pressure 123/83 110/77 Pulse Oximetry 96 98 Oxygen Delivery Method Room Air Room Air BMI result Body Mass Index 25.2 Const Other: Awake, sitting up in bed on her phone, with snacks at bedside. Patient has numerous personal belongings including blankets, she has all of her medications set up in a linear fashion on top of our supply cart Orientation/consciousness: patient oriented x3 Resp Effort & Inspection: normal respiratory effort Cardio Other: Normal peripheral perfusion Skin Other: Warm dry Neuro General: patient oriented x3, gait normal, no focal motor deficits and CN's II- XI intact bilaterally Psych Other: Hostile, belligerent, exhibiting symptoms consistent with likely borderline personality disorder Course Course Course Narrative: RME, this is a rapid medical exam performed by Douglas Carrizales please refer to primary provider for complete H&P- 43-year-old female presents for evaluation of left hip pain. She states that her primary doctor sent to her to ?rule out a bone infection. Plan for labs, x-ray of the left hip. 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 does not have any referral nurse now on pain management lawn for here pain in the left hip fired FAZAL keep changing her complaints asking for IV fluids then requesting to stay overnight workup is negative for acute infection sed rate and CRP also negative x-rays were also negative at this time there is no medical reason for her to stay in the hospital which can be managed as outpatient patient's orthostatics were also normal will discharge patient home advised to follow up with her providers as outpatient The patient is a 43-year-old female with a history of cyclic vomiting syndrome, multiple sclerosis, chronic constipation, celiac disease, dysautonomia, osteoarthritis with chronic pain, presents with ongoing left hip pain. Per the patient's report she was advised to come to the emergency department by her primary care provider to rule out ?left hip infection?. History extremely limited as the patient has quite hostile and belligerent. Problem: MS, chronic pain, dysautonomia, History: Per patient which is limited I have considered the following differential diagnoses: Septic joint, arthritis, malingering, somatization/conversion disorder Plan: Screening labs including inflammatory markers were obtained from triage. Imaging of the patient's left hip and knee were obtained. Patient was also complaining of knee pain and swelling, that she had ?fluid on the knee?. Multiple attempts were made to explain to the patient that her x-rays were completely unremarkable, that she has minimal arthritis of the hip. Also attempted to discuss with her that she does not have a joint effusion of the left knee, that there are no arthritic changes. Furthermore, the patient's labs are completely normal and her inflammatory markers are negative. The patient's behavior immediately escalated, she is demanding a CT scan. Again, multiple attempts were made to try to explain to the patient that given she has normal labs, with unremarkable x-rays, there is no clinical indication for a CT scan. The patient is now verbally assaulting me, she is demanding to speak with one of the attendings. The patient was noted to be cursing at staff, calling me a ?bitch?. I had expressed to the patient that we will be getting her ready for discharge, given there were no acute findings today. The patient became hysterical, she was saying that I ?upset her so much that now she has chest pain and now she needs fluid and she is nauseous and she is going to vomit?. The patient started calling her cardiology team, we are receiving a fax from them now, the on-call apparel sales associate was requesting to speak with me; patient is followed by Dr. Raul Naylor. Prior to speaking with the on-call apparel sales associate, we obtained orthostatic vitals, which were completely normal, there was no variation. The on-call doctor expressed that she is aware of how difficult the patient is, and was asking if we could just ?give her fluids to appease her?. I explained to the on-call doctor that we have a waiting room full of sick people that are waiting to be assessed, that this patient has monopolized numerous resources in the way of nursing staff and the ED providers, that this is inappropriate, that we would be discharging her. The patient became more belligerent, she continued to verbally assault staff, including the security officers, who had to escort her out of the emergency department. I have independently reviewed the following tests: Labs: No leukocytosis, not anemic, ESR 7, crp 0.44, no electrolyte abnormality X-ray left hip and pelvis: indings: No acute fracture or dislocation. There is mild arthritic change. The soft tissues are unremarkable. IMPRESSION: No acute findings. This document has been electronically signed by: Avani Valverde MD on 07/12/2024 17:40:59 X-ray left knee:4 view left knee Comparison: None Findings: Bones intact. No dislocations. No significant loss of joint space, osteophytes, or erosions. No joint effusion. No radiopaque foreign body. IMPRESSION: 1. No acute findings. This document has been electronically signed by: Avani Valverde MD on 07/12/2024 17:42:01 Lab Data 07/12/24 20:15 07/12/24 20:15 Labs: Lab Results 07/12/24 07/12/24 Range/Units 20:15 21:48 WBC 10.2 (4.8-10.8) X10*3/uL RBC 4.02 L (4.20-5.50) X10*6/uL Hgb 12.6 (12.0-16.0) g/dl Hct 36.3 L (37.0-47.0) % MCV 90.3 (80.0-98.0) fL MCH 31.3 (27.0-33.0) pg MCHC 34.7 (31.0-35.0) g/dl RDW 14.1 (11.0-16.0) % Plt Count 358 (160-400) X10*3/uL MPV 9.0 L (9.4-12.3) fL Immature Gran % (Auto) 0.2 (0.0-0.4) % Neut % (Auto) 59.3 (45-73) % Lymph % (Auto) 26.3 (20-40) % [place] % (Auto) 7.2 (2-11) % Eos % (Auto) 6.1 H (0-4) % Baso % (Auto) 0.9 (0-2) % Lymph # (Auto) 2.7 (1.2-4.9) X10*3/uL [place] # (Auto) 0.7 (0.1-1.2) X10*3/uL Eos # (Auto) 0.6 H (0.0-0.4) X10*3/uL Baso # (Auto) 0.1 (0.0-0.2) X10*3/uL Abs Immat Gran (auto) 0.02 (0.00-0.03) X10*3/uL Absolute Neuts (auto) 6.1 (2.0-8.3) x10*3/uL Absolute Nucleated RBC 0.000 (0.0-0.012) X10*3/uL Nucleated RBC % (auto) 0.0 (0.0-0.2) /100WBC ESR 7 (0-20) MM/HR Sodium 136 (135-145) mmol/L Potassium 4.2 (3.3-5.1) mmol/L Chloride 108 (96-108) mmol/L Carbon Dioxide 21 L (22-29) mmol/L Anion Gap 11 L (12-20) BUN 11 (9-16) mg/dL Creatinine 0.62 (0.5-1.4) mg/dL Estim Creat Clear Calc 111.8 Estimated GFR > 60 Random Glucose 95 (60-115) mg/dL Calcium 9.6 D (8.4-10.2) mg/dL Total Bilirubin 0.1 (0.0-1.0) mg/dL AST 19 (5-31) U/L ALT 8 (0-31) U/L Alkaline Phosphatase 95 (39-117) U/L Total Creatine Kinase 108 (26-140) U/L C-Reactive Protein 0.44 (< or = 0.50) mg/dL Total Protein 7.2 (6.5-8.0) g/dL Albumin 4.5 (3.5-5.0) g/dL Lipase 8 (8-78) U/L Influenza Type A (PCR) NEGATIVE (Negative) Influenza Type B (PCR) NEGATIVE (Negative) RSV RNA Qual (PCR) NEGATIVE (Negative) SARS-CoV-2 RNA (RT-PCR) NEGATIVE (Negative) S. pyogenes GrpA AKASH Negative (Negative) Discharge Plan Discharge Clinical Impression: Chronic left hip pain, Knee pain, left Patient Disposition: Home, Self-Care Instructions: Knee Pain (ED), Hip Pain (ED) Additional Instructions: All of your screening labs were completely normal. In particular, you do not have an elevation in your white blood cell count. Your inflammatory markers, the CRP and ESR, were negative. The x-ray of the pelvis and hip revealed minimal arthritis. The x-ray of the knee was normal. I am including the x-ray reads in your discharge paperwork. It was not clinically indicated to obtain advanced imaging at this time. You have no objective evidence of inflammation or infection. You can continue to follow up with your primary care provider. 3 view, pelvis and left hip Comparison: None Findings: No acute fracture or dislocation. There is mild arthritic change. The soft tissues are unremarkable. IMPRESSION: No acute findings. This document has been electronically signed by: Avani Valverde MD on 07/12/2024 17:40:59 4 view left knee Comparison: None Findings: Bones intact. No dislocations. No significant loss of joint space, osteophytes, or erosions. No joint effusion. No radiopaque foreign body. IMPRESSION: 1. No acute findings. This document has been electronically signed by: Avani Valverde MD on 07/12/2024 17:42:01 Prescriptions: No Action hazkqeuht-kmdzwzkmvfhjcz-idpe 2.8-0.55 % gel 1 appl DC BID 30 Days Qty: 100 0RF tizanidine 4 mg Tablet 4 mg PO TID clindamycin HCl 300 mg capsule 450 mg PO Q8H 7 Days Qty: 32 0RF Magic Mouthwash Diphen/Lido/Antacid 1:1:1 240 mL suspension 10 ml PO TID PRN (Reason: pain (scale score 4-6)) 7 Days Qty: 210 0RF Rx Instructions: Lidocaine Viscous 2 % 80mL; diphenhydramine 12.5 mg/5 mL 80mL; aluminum-mag hydrox-simeth 843km-427bs-45bg/5mL 80mL SWISH & SPIT clobetasol 0.05 % ointment 1 appl topical BID Qty: 45 0RF albuterol sulfate 90 mcg/actuation aerosol powdr breath activated 1 inh inhalation Q4-6H PRN (Reason: Wheezing) Xtampza ER 9 mg cap,sprinkl,ER12hr(DONT CRUSH) 9 mg PO BID baclofen 10 mg tablet 25 mg PO TID gabapentin 300 mg capsule 900 mg PO TID PRN (Reason: Pain) carbidopa 25 mg tablet 25 mg PO TID levocetirizine 5 mg tablet 10 mg PO BID duloxetine 60 mg capsule,delayed release(DR/EC) 60 mg PO DAILY methylphenidate HCl 5 mg tablet 5 mg PO BID Slynd 4 mg (28) tablet 1 tab PO DAILY oxcarbazepine 300 mg tablet 300 mg PO TID cholecalciferol (vitamin D3) 50 mcg (2,000 unit) capsule 50 mcg PO DAILY senna 8.6 mg capsule 8.6 mg PO BID docusate sodium [Colace] 100 mg capsule 100 mg PO DAILY aspirin [Adult Aspirin Regimen] 81 mg tablet,delayed release (DR/EC) 81 mg PO DAILY ondansetron 8 mg tablet,disintegrating 8 mg PO Q12H simethicone [Gas-X Extra Strength] 125 mg capsule 250 mg PO BID PRN (Reason: Constipation) Interventions: ED Discharge Assessment Last Done: 07/13/24 01:28 Discharge Date/Time: 07/13/24 01:29 Print Language: Algerian
[2024-07-12 20:22] LABS: Basophils Absolute Auto 0.1 X10*3/uL (0.0-0.2); Basophils Percent Auto 0.9 % (0-2); Eosinophils Absolute Auto 0.6 X10*3/uL (0.0-0.4); Eosinophils Percent Auto 6.1 % (0-4); Hematocrit 36.3 % (37.0-47.0); Hemoglobin 12.6 g/dl (12.0-16.0); Imm Gran Abs Auto 0.02 X10*3/uL (0.00-0.03); Imm Gran Pct Auto 0.2 % (0.0-0.4); Lymphocytes Absolute Auto 2.7 X10*3/uL (1.2-4.9); Lymphocytes Percent Auto 26.3 % (20-40); MANUAL DIFF FLAG NO; Mean Corpuscular HGB Conc 34.7 g/dl (31.0-35.0); Mean Corpuscular Hemoglobin 31.3 pg (27.0-33.0); Mean Corpuscular Volume 90.3 fL (80.0-98.0); Monocytes Absolute Auto 0.7 X10*3/uL (0.1-1.2); Monocytes Percent Auto 7.2 % (2-11); Neutrophils Absolute Auto 6.1 x10*3/uL (2.0-8.3); Neutrophils Percent Auto 59.3 % (45-73); Platelet Count 358 X10*3/uL (160-400); Red Blood Count 4.02 X10*6/uL (4.20-5.50); Red Cell Distribution Width 14.1 % (11.0-16.0); White Blood Count 10.2 X10*3/uL (4.8-10.8)
[2024-07-12 20:36] LABS: Alanine Aminotransferase 8 U/L (0-31); Albumin Level 4.5 g/dL (3.5-5.0); Alkaline Phosphatase 95 U/L (39-117); Anion Gap 11 (12-20); Aspartate Amino Transferase 19 U/L (5-31); Bilirubin Total 0.1 mg/dL (0.0-1.0); Blood Urea Nitrogen 11 mg/dL (9-16); C Reactive Protein 0.44 mg/dL (< or = 0.50); Calcium 9.6 mg/dL (8.4-10.2); Carbon Dioxide 21 mmol/L (22-29); Chloride 108 mmol/L (96-108); Creatinine Clr Calc Pharmacy 111.8; Estimated Glomerular Filt Rate > 60; Glucose Random 95 mg/dL (60-115); Lipase 8 U/L (8-78); Potassium 4.2 mmol/L (3.3-5.1); Sodium 136 mmol/L (135-145); Total Protein 7.2 g/dL (6.5-8.0)
--- NOTE | 2024-07-12 20:47 | PC.NURSE ---
Pt reports having sore throat and wanting to be checked for strep. Orders placed in JUL.
[2024-07-12 22:00] LABS: Erythrocyte Sedimentation Rate 7 MM/HR (0-20)
[2024-07-12 22:21] LABS: IDNOW Serial# 58CA691E; Strep A Nucleic Acid Negative (Negative)
[2024-07-12 22:38] LABS: Influenza A PCR NEGATIVE (Negative); Influenza B PCR NEGATIVE (Negative); Resp Syncy Virus RNA Qual PCR NEGATIVE (Negative); SARS COV2 PCR INHOUSE NEGATIVE (Negative)
[2024-07-13] VITALS: BP 110/77; PULSE 79; RESP 20; TEMP 36.6; O2SAT 98
--- NOTE | 2024-07-13 00:22 | PC.NURSE ---
Provider into assess pt, pt refuses to allow provider to complete assessment, Took over patient at 23:00pm, I have answer call rouse for times, repositioned pt, gave pt alcohol wipe and band aide per request, placed her sock on foot per request.Notified charge nurse Denae of patient behavior.
--- NOTE | 2024-07-13 00:36 | PC.NURSE ---
pt requesting a hot pack, given and provider aware.
[2024-07-13 01:00] VITALS: BP 111/83; BP 122/74; BP 128/93; PULSE 101; PULSE 104; PULSE 98
--- NOTE | 2024-07-13 01:22 | PC.NURSE ---
supervisor color paste mixing Faye and Clinical coordinator Dr. Ansley Arguello offered pain medication, anxiety medication and pt told him to shove it up his ass, ortho complete, [employer] called to help assist with discharge, pt given 2 hot packs per request. Pt was discharge by Skip Miner, Clinical l coordinator and security , wheedled out to waiting room per pt request.
[2024-07-13 01:28] VITALS: BP 111/83; PULSE 98; RESP 16; TEMP 37.1; O2SAT 99
== END 2024-07-13 01:29 | disposition home or self-care (01) ==
PROVIDERS: Physician Assistant; Emergency Provider Internal Medicine; PCP Family Medicine
DX: M25.552 Pain in left hip (principal); M25.562 Pain in left knee; G35 Multiple sclerosis; Z03.818 Encounter for observation for suspected exposure to other biological agents ruled out
CPT/HCPCS: 0241U; 36415; 73502; 73562; 80053; 82550; 83690; 85025; 85652; 86140; 87651; 99283; 99284

== ENCOUNTER → 2024-07-12 16:20 | Outpatient (BNV) | payer BC, MEDICAID, SELFPAY | PROVIDERS: PCP Family Medicine; Visit Provider Nuclear Medicine | DX: M25.552 Pain in left hip (principal); M25.562 Pain in left knee | CPT/HCPCS: 73502; 73562 ==

== ENCOUNTER 2025-03-31 00:43 | Emergency (ER) | payer OTHER, MEDICAID, SELFPAY ==
--- OUTSIDE RECORDS SUMMARY | 2024-10-01 06:00 | XMS_ITS ---
Author Organization [facility], [facility] Address [address] [place] [id number] Care Team Providers Care Software Deployment Engineer Name Role Phone Carol KOTHARI Primary Care Provider YVAN Carpenter Unavailable [phone] REASON FOR VISIT Cx (pt cx within 24 hr) Encounters Encounter Location Date Provider Diagnosis [facility] [address] [address] 10/01/2024 YVAN JEAN BAPTISTE Plan Of Treatment Next Appt Details Provider Name:YVAN TATUM [facility], 04/06/2025 02:00:00 PM, [address] [place] [address], [place] [address], [place], [phone], Progress Notes * Roxanne KURTZ ADOB:1980 (44 yo F)Acc No.[id number]:10/01/2024 Progress Notes Patient: Roxanne NEWBERRY Provider: Alon JEAN BAPTISTE D.O :1980 A ge:43 Y S ex:Female Date:10/01/2024 Address:[address] [place], [place] [id number] Pcp:Carol KOTHARI Subjective: * Chief Complaints: * 1 . Cx (pt cx within 24 hr). * Medical History: Objective: * Vitals: Assessment: Plan: * Treatment: * * Electronic signature of DORINA JEAN BAPTISTE DO on 03/31/2025 at 01:55 AM EDT Sign off status: Pending * Provider: Alon JEAN BAPTISTE D.O Date: 0 10/01/2024 Generated for John crow/Mel/Christian on: 1 01:55 AM EDT
--- OUTSIDE RECORDS SUMMARY | 2025-02-11 04:30 | XMS_ITS ---
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, MS, Anxiety Encounters Encounter Location Date Provider Diagnosis [facility] [address] [address] 02/11/2025 YVAN JEAN BAPTISTE Plan Of Treatment Next Appt Details Provider Name:YVAN TATUM [facility], 04/06/2025 02:00:00 PM, [address] [place] [address], [place] [address], [place], [phone], Progress Notes * Roxanne KURTZ ADOB:1980 (44 yo F)Acc No.[id number]:02/11/2025 Progress Notes Patient: Roxanne NEWBERRY Provider: Alon JEAN BAPTISTE D.O :1980 A ge:44 Y S ex:Female Date:02/11/2025 Address:[address] [place] [address] Pcp:Carol KOTHARI Subjective: * Chief Complaints: * 1 . 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 * Medical History: Objective: * Vitals: Assessment: Plan: * Treatment: * * Electronic signature of DORINA JEAN BAPTISTE DO on 03/31/2025 at 01:56 AM EDT Sign off status: Pending * Provider: Alon JEAN BAPTISTE D.O Date: 0 02/11/2025 Generated for John crow/Mel/Arisitting on: 1 01:56 AM EDT
--- NOTE | 2025-03-31 | ECG_ITS ---
Test Reason : CHEST PAIN Blood Pressure : */* mmHG Vent. Rate : 68 BPM Atrial Rate : 68 BPM P-R Int : 160 ms QRS Dur : 84 ms QT Int : 388 ms P-R-T Axes : 66 73 42 degrees QTcB Int : 412 ms Normal sinus rhythm Normal ECG When compared with ECG of 15-Nov-2023 12:03, No significant change was found Referred By: Generic ED Physician Electronically Signed By: EDMOND LEAL
[2025-03-31 00:46] VITALS: BP 119/77; PULSE 85; RESP 20; TEMP 36.5; O2SAT 98; BMI 24.2
--- OUTSIDE RECORDS SUMMARY | 2025-03-31 01:55 | XMS_ITS | Encounter Summary ---
Author Organization [facility] Address [address] [place] [address] Care Team Providers Care Boat Deckhand Name Role Phone Anmol Garza Primary Care Provider Encounter Details Date Type Department Care Team (Late st Contact Info) Description 11/03/2024 Mimiboardt Message [facility] Financial Clearance Department [address] [place] [id number] Osmel, Anita L modafiniL (PROVIGIL) 100 mg tablet [ Social History Tobacco Use Types Packs/Day Years Used Date Smoking Tobacco: Former Cigarettes E-Cigarettes Smokeless Tobacco: Never Alcohol Use Standard Drinks/Week Comments No 0 (1 standard drink = 0.6 oz pur e alcohol) Comments No Sex and Gender Information Value Date Recorded Sex Assigned at Female 06/09/2020 11:00 AM EST Legal Sex Female 1:36 PM EDT Gender Identity Female 06/09/2020 11:00 AM EST Sexual Orientation Straight 06/09/2020 11 :00 AM EST documented as of this encounter Plan of Treatment Not on file documented as of this encounter Visit Diagnoses Not on filedocumented in this encounter Care Teams Boat Deckhand Relationship Specialty Start Date End Date Anmol Garza [address] [place] [address] [place] [id number] PCP - General Family Medicine 04/22/24 documented as of this encounter
--- OUTSIDE RECORDS SUMMARY | 2025-03-31 01:55 | XMS_ITS | Data Portability ---
Author Organization [place] [facility] [place] Address [address] [place] [address] Assessment Encounter Date Assessment Date Assessment LastModified by Organization Details LastModified Time 01/07/2025 01/07/2025 HPI : T homer you for the pleasure of requesting a consultation on this patient. Patient comes in complaining of left hip pain. She states she has been dealing with hip pain her whole life. She also has right-sided symptoms, this is popping neck and radiate to the left hip. Her main issue though is the left hip pain. She also has chronic pain throughout her body. She takes 40 mg of oxycodone daily, as well as OxyContin daily. She had cortisone injection in the left hip in the past which brought a few months of relief. T his patient is experiencing left hip pain for a period lasting greater than the last three months, which is severe (VAS score greater than or equal to 6 on a 0-10 scale) in intensity and the restriction of function (appropriate for a patient of this age) are intolerable. The pain substantially limits activities of daily living. In particular, walking tolerance and ability to stair climb is reduced. Conservative management such as non-steroidal anti-inflammatory medications available by prescription, physician directed therapy, ice and/or heat and activity modification have been minimally effective or deemed insufficient by the patient for a period lasting greater than 3-6 months in duration. Assistive devices and external support were not deemed by the patient to be helpful in improving their function. The patient is unable to tolerate further physical therapy at this time. Review of systems is negative for rapidly progressive neurological disorder, chest pain, shortness of breath, fevers, chills, or any signs of active or persistent local or systemic infection. Physical Exam : Patient is well nourished, well-developed, in no acute distress, with appropriate mood and affect. The patient is oriented to time, place, and person. Respirations are even and unlabored. Gait evaluation reveals a limp. There is no inguinal adenopathy. Examination of the right hip shows mild pain with range of motion. Skin is intact. Strength is intact. I was not able to get the hip to sublux. The affected left limb is well-perfused, shows a grossly normal motor and sensory examination. Examination of the hip shows no skin lesions. Hip motion is reduced and causes pain. FADIR is positive and MEET is positive. Stinchfield test is positive. Leg lengths are approximately equal. Both hips are stable and muscle strength is normal. Pedal pulses are palpable. Assessment/Plan : The patient is an appropriate candidate for consideration of left total hip replacement. An extensive discussion was conducted of the natural history of the disease and the variety of surgical and non-surgical treatment options available to the patient. A risk/benefit analysis was discussed with the patient reviewing the advantages and disadvantages of surgical intervention at this time. A full explanation was given of the nature and the purpose of the procedure and anesthesia, its benefits, possible alternative methods of diagnosis or treatment, the risks involved, the possibility of complications, the foreseeable consequences of the procedure and the possible results of the non-treatment. No guarantee or assurance was made as to the results that may be obtained. Specifically, the risks were identified to include, but are not limited to the following: Infection, phlebitis, pulmonary embolism, , paralysis, dislocation, pain, stiffness, instability, limp, weakness, breakage, leg-length inequality, uncontrolled bleeding, nerve injury, blood vessel injury, pressure sores, anesthetic risks, delayed healing of wound and bone, and wear and loosening. Additional risks of robotic hip replacement were discussed (if used) including but not limited to pin site infection, draining, longer incision, longer OR time, and fracture near the pin sites. Further discussion was undertaken with the patient about the details of surgical preparation, treatment, and postoperative rehabilitation including medical clearance, autotransfusion, the hospital course, and the postoperative rehabilitation involved. As a part of routine preoperative counseling, if the patient is a smoker, the patient recognizes the increased risk of complications in patients who utilize tobacco products. The patient has also been counseled regarding the elevated risk of surgical complications in patients with an elevated BMI. The patient demonstrates understanding of the increased risk in such patients. The patient was encouraged to participate in physical activity and diet modification under the direction of their primary care physician. We will plan on proceeding with left total hip arthroplasty using the [place] hip replacement system. However, it is possible during the preoperative planning process or due to intraoperative findings that a different implant system may be utilized in order to optimize the patient's outcome. We had a discussion regarding implant and bearing options. We had a detailed discussion of the advantages and limitations of the specific implant designs, materials and bearing surfaces. All questions were answered to the patient's satisfaction, and the patient was asked to call the office with any further concerns. All in all, I feel that this patient is a good candidate for surgical reconstruction. An in-depth discussion of the risks and benefits of surgery as noted above were had with patient, including any reasonable alternatives and the risks and benefits of the alternatives. The patient was given time to understand and ask questions, and the surgical consent was signed and dated today. The patient is also aware that questions can be asked at any time before the surgical date to me or my team. I had discussion with patient that she is higher risk for complications given her chronic opioid use. I encouraged her to reduce opioid consumption prior to her surgery. I had discussion with patient, that I am not sure what is causing the popping sensation from the right to the left hip. It could be subluxation of the right hip. This will not be resolved from left hip replacement. The only thing left hip replacement would resolve is the left hip pain. Other issues such as this and other body pain would not be resolved. She is in understanding of this. Plan for left total hip replacement, robotic assisted, at [facility]. PCM Services Statement: Principal Care Management (PCM) services were recommended to this patient with a diagnosis of osteoarthritis who has failed conservative management and is indicated for, as well as undergone shared decision-making to undergo a total joint arthroplasty procedure. PCM services provided to the patient include but not limited to structured recording of patient health information within our electronic medical record system, 23/12 access and continuity of care to qualified practitioners and/or clinical staff, comprehensive care management and planning to optimize pre-surgical needs, choice of an appropriate surgical facility, preoperative patient education, and coordination of patient-specific jairon-operative needs. This will be actively managed by the clinical staff with physician supervision throughout enrollment in the program. The clinical staff will help manage care transitions as well as coordinate home and community-based care as it pertains to the patient's needs. The patient expresses understanding and awareness of PCM services, including but not limited to potential cost- sharing responsibilities; only one practitioner can furnish and bill for PCM services during a calendar month, and the patient can stop these services at any time. The patient understands and has verbally consented to accept PCM services and has been provided a copy of a written explanation of this service today. Not available 01/07/2025 15:31:15 Plan of Treatment Reminders Order Date Submit Date Provider Last Modified By Organization Details Last Modified Time Details Appointments None recorded. Lab None recorded. Referral None recorded. Procedures None recorded. Surgeries total hip arthroplast y (SURG) 2024 025 0 Not available 14:31:57 Imaging XR, hip, unilateral, 2 or 3 view 2024 025 [email or web address] 2 [facility], [address], [address], [place], [address], 15:46:49 Medication Orders None recorded. Patient TargetsNo targets recorded. Patient Instructions Encounter Date Encounter Id Patient Instructions Last Modified By Organization Details Last Modified Time 01/07/2025 [id number] AP pelvis, AP an d lateral of the left hip demonstrate signs of hip dysplasia including uncovering of the femoral head, and slight flattening of the femoral head, as well as degenerative changes with joint space narrowing, subchondral sclerosis and osteophyte formation. Not available 01/07/2025 15:27:41 Reason for Referral None Reported. Problems Name Problem SNOMED Code Status Onset Date Resolution Date Notes Provider Name and Address Organization Details Recorded Time Erythema nodosum 65487897 Active 2019 Erythema nodosum Not Available 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 5 00:12:02 Celiac disease 759536440 Active 2019 Celiac disease Not Available [facility] 5 00:12:03 Anxiety 04784574 Active 2019 Anxiety Not Available [facility] 5 00:12:03 Osteoarth ritis of left hip joint due to dysplasia 00277713441 9107 Active 2024 Shola Fish MD [address], [place], [address] , [place] [facility] 5 15:24:47 Arthritis of hip 87220621 Active 2024 Shola Fish MD [address], [place], [address] , [place] [facility] 15:24:53 Problem Notes None recorded. Medical Equipment None Reported. Allergies Allergen ID Allergen Name Allergen Category Reaction Reaction Severity Criticality Documentation Date Start Date Code Code System Note Provider Name and Address Organization Details Recorded Time 08958 sulfameth oxazole / trimethop rim medicatio n Not available Not available Not available 02/22/20252020 12752 RxNorm Not Available [facility] 5 01:20:58 32563 meclizine medicatio n Not available Not available Not available 02/22/20252020 6676 RxNorm Not Available [facility] 5 01:20:59 38813 famotidin e medicatio n Not available Not available Not available 02/22/20252021 4278 RxNorm React ion: Other (See Comme nts), sever ity: Unkno wn;Co nstip ation , confu baltazar, and sever e neck pain. Not Available [facility] 5 01:20:59 62715 fludrocor tisone medicatio n Not available Not available Not available 02/22/20252021 4452 RxNorm Not Available [facility] 5 01:20:[address] medicatio n Not available Not available Not available 02/22/20252020 53128 RxNorm Not Available [facility] 5 01:20:59 03714 haloperid ol medicatio n Not available Not available Not available 02/22/20252020 5093 RxNorm Not Available [facility] 5 01:21:00 88167 erythromy connie medicatio n Not available Not available Not available 02/22/20252020 4053 RxNorm Not Available [facility] 5 01:21:00 53458 promethaz ine medicatio n Not available Not available Not available 02/22/20252020 8745 RxNorm Not Available [facility] 5 01:21:00 91414 wheat gluten extract food Not available Not available Not available 02/22/20252020 20058 81 RxNorm Not Available [facility] 5 01:21:00 09462 latex environme nt,medica tion Not available Not available Not available 02/22/20252005 66251 91 RxNorm Other react ion(s ): Rash/ Rayle titis Not Available [facility] 5 01:21:01 52863 fentanyl medicatio n Not available Not available Not available 02/22/20252020 4337 RxNorm Not Available [facility] 5 01:21:01 60691 Product containin g penicilli n (product) medicatio n Not available Not available Not available 02/22/20252020 81030 8001 SNOMED Not Available [facility] 5 01:21:01 95054 diazepam medicatio n Not available Not available Not available 02/22/20252020 3322 RxNorm Not Available [facility] 5 01:21:02 91449 lorazepam medicatio n Not available Not available Not available 02/22/20252020 6470 RxNorm Not Available [facility] 5 01:21:02 Medications Name Sig Start Date Stop Date Status Note LastModified by Organization Details LastModified Time albuterol sulfate 2.5 mg/3 mL (0.083 %) solution for nebulization albuterol sulfate 2.5 mg/3 mL (0.083 %) solution for nebulizatio nINHALE 1 VIAL VIA NEBULIZER EVERY 6 HOURS NEEDED FOR WHEEZING active Not Available Not Available No t Available aspirin 325 mg tablet Take 650 mg by mouth 2 (two) times a day. active Not Available Not Available No t Available methylphenid ate 5 mg tablet Take 5 mg by mouth 2 (two) times a day. active Not Available Not Available No t Available oxcarbazepin e 300 mg tablet Take 300 mg by mouth 3 (three) times a day. Take 1 in am, 2 in afternoon, and 2 in pm active Not Available Not Available Not Available prochlorpera zine maleate 10 mg tablet Take 10 mg by mouth every 6 (six) hours as needed. active Not Available Not Available N ot Available ondansetron 8 mg disintegrati ng tablet Take 8 mg by mouth as needed. active Not Available Not Available No t Available carbidopa 25 mg tablet Take 75 mg by mouth 3 (three) times a day. active Not Available Not Available No t Available prochlorpera zine 25 mg rectal suppository Compazine 25 mg rectal suppository as needed 2019 active Not Available Not Available Not Avai lable baclofen 10 mg tablet TAKE 2.5 TABLETS (25 MG TOTAL) BY MOUTH 3 TIMES DAILY. 2022 active Not Available Not Available Not Avai lable diphenhydram ine 25 mg capsule Take 25 mg by mouth every 6 (six) hours as needed. active Not Available Not Available N ot Available docusate sodium 100 mg capsule Take 100 mg by mouth 2 (two) times a day. active Not Available Not Available No t Available gabapentin 300 mg capsule Take 900 mg by mouth 3 (three) times a day. active Not Available Not Available No t Available triamcinolon e acetonide 0.1 % lotion Apply topically 2 (two) times a day. Twice daily active Not Available Not Available Not Available ibuprofen 600 mg tablet Take 600 mg by mouth as needed. active Not Available Not Available No t Available albuterol sulfate HFA 90 mcg/actuatio n aerosol inhaler Inhale 2 puffs into the lungs as needed. active Not Available Not Available N ot Available methylphenid ate ER 18 mg tablet,exten ded release 24 hr Take 18 mg by mouth daily. active Not Available Not Available No t Available oxycodone 5 mg tablet Take 5 mg by mouth every 4 (four) hours as needed for pain. active Not Available Not Available No t Available sennosides 8.6 mg capsule Take 8.6 mg by mouth daily. 2 tablets once daily active Not Available Not Available N ot Available duloxetine 60 mg capsule,edgar yed release Take 60 mg by mouth daily. active Not Available Not Available No t Available levocetirizi ne 5 mg tablet Take 20 mg by mouth every evening. 2 tabs in am active Not Available Not Available N ot Available Xtampza ER 9 mg capsule sprinkle Take 9 mg by mouth 2 (two) times a day. active Not Available Not Available No t Available ocrelizumab 30 mg/mL intravenous solution Inject 600 mg into the vein once. Every 6 months active Not Available Not Available No t Available Vitals Date Recorded Body height Body mass index (BMI) Body weight Provider Name and Address Organization Details Last Updated DateTime 01/07/2025 167.64 cm 23.6 kg/m2 74573.[address] Linnea Sánchez [place] [facility], 01/07/2025 15:01:33 Social History None recorded. Functional Status Question Answer Note LastModified by Organizat ion Details LastModified Time Do you use any illicit or recreational drugs? Yes Information not available 01/07/2025 Do you or have you ever used any other forms of tobacco or nicotine? Yes Information not available 01/07/2025 What is your level of alcohol consumption? None Information not available 01/07/2025 Do you or have you ever used e-cigarettes or vape? Never used electronic cigarettes Information not available 01/07/2025 Mental Status None recorded. Family History Nothing Reported Notes:left blank Medical History Condition Response Osteoporosis Y Gynecological HistoryNo gynecological history recorded. Obstetrics History GPAL:G 0 P 0 0 0 0 Past Encounters Encounter ID Performer Location Encounter Start Date Encounter Closed Date Diagnosis/Indication Diagnosis SNOMED-CT Code Diagnosis ICD10 Code Diagnosis IMO Codes Diagnosis Note [id number] MD SILVANO Ariaschristiano [address] [address] 01/07/2025 14:48:58 01/07/2025 15:46:49 Pain of hip region 87763759 M25.552 035687 Osteoarthr itis of left hip joint due to dysplasia 4725231365 80737 M16.32 2210002 Arthritis of hip 8900992 6 M13.859 Health Concerns Section Related Observation LastModified by Organization Detai ls LastModified Time None Recorded Concern Status LastModified by Organization Details LastModified Time None Recorded Advance Directives Directive None Recorded Payers Insurance Date Sequence Insurance Name Policy Number Policy Summers Covered Member ID Summers Member ID Guarantor Name 01/07/2025 1 [place] [facility] [place] [place] [id number] Jose Parker [id number] Roxanne Parker 01/07/2025 2 [place] [facility] Roxanne Parker [id number] Roxanne Parker 01/07/2025 [facility] Roxanne Parker OBGyn Episode No OBEpisode recorded.
--- OUTSIDE RECORDS SUMMARY | 2025-03-31 01:55 | XMS_ITS | Clinical Summary ---
Author Organization [facility] Address [address] [place] [address] Care Team Providers Care Automation Manager Name Role Phone Unavailable Primary Care Provider Unavailabl e Encounters Date Type Department Care Team Description 02/16/2025 Transcribe Orders [facility] PRIMARY CARE SCAN Anmol Garza MD Lesion of tongue (Primary Dx) from Last 3 Months Social History Tobacco Use Types Packs/Day Years Used Date Smoking Tobacco: Never Assessed Comments Unknown Sex and Gender Information Value Date Recorded Sex Assigned at Not on file Legal Sex Female 6:30 PM EST Gender Identity Not on file Sexual Orientation Not on file Plan of Treatment Health Maintenance Due Date Last Done Comments Hepatitis C Virus Screening 1982 HIV Screening 10/29/1995 DTaP/Tdap/Td Vaccines (1 - Tdap) 2001 Hepatitis B Vaccines (1 of 3 - 19+ 3-dose series) 2001 Pap Smear (Ages 21-65) 10/29/2003 Mammogram 2022 Influenza Vaccine 12/31/2024 COVID-19 Vaccine (1 - 2023-2 5 season) 2025 HPV Vaccines (No Doses Required) Completed Pneumococcal Vaccine: Pediat kenton (0-5 Years) and At-Risk Patients (6 to 49 Years) Aged Out No longer eligible b ased on patient's age to complete this topic Insurance [facility] - HMO
--- OUTSIDE RECORDS SUMMARY | 2025-03-31 01:55 | XMS_ITS | Encounter Summary ---
Author Organization [facility] Address [address] [place] [address] Care Team Providers Care Director Human Services Name Role Phone Anmol Garza Primary Care Provider Reason for Visit * Reason Onset Date Comments Message for Provider/Nurse 11/13/2020 Encounter Details Date Type Department Care Team (Late st Contact Info) Description 11/13/2020 Telephone [facility] Central Scheduling Department [address] [place] [address] Telephone Intake, Staff Message for Provider/Nurse Social History Tobacco Use Types Packs/Day Years Used Date Smoking Tobacco: Every Day Cigarettes 0.5 24 E-Cigarettes Smokeless Tobacco: Never Alcohol Use Standard Drinks/Week Comments No 0 (1 standard drink = 0.6 oz pur e alcohol) Comments No Sex and Gender Information Value Date Recorded Sex Assigned at Female 06/09/2020 11:00 AM EST Legal Sex Female 1:36 PM EDT Gender Identity Female 06/09/2020 11:00 AM EST Sexual Orientation Straight 06/09/2020 11 :00 AM EST documented as of this encounter Miscellaneous Notes * Telephone Encounter - Carlos Reeves - 11/13/2020 11:10 AM EDT Pt is calling in regards to having trouble swallowing. Pt has been experiencing trouble swallowing both solids and liquids. Pt will choke sometimes and have to swallow multiple times to get the substance down. Pt is also experiencing Jaw lock which she doesn't know is related or not. Pt has reachedout to her Gastro primary and neurologist and they are unsure of what is going on. Pt is looking tospeak with Dr. Salas or a nurse about what steps to take moving forward. documented in this encounter Plan of Treatment Not on file documented as of this encounter Visit Diagnoses Not on filedocumented in this encounter Care Teams Director Human Services Relationship Specialty Start Date End Date Anmol Garza [address] [place] [id number] PCP - General Family Medicine 04/22/24 documented as of this encounter
--- OUTSIDE RECORDS SUMMARY | 2025-03-31 01:55 | XMS_ITS | Encounter Summary ---
Author Organization [facility] Address [address] [place] [address] Care Team Providers Care Ic Designer Standard Cells Name Role Phone Anmol Garza Primary Care Provider [phone] Encounter Details Date Type Department Care Team (Late st Contact Info) Description 01/24/2023 Telephone [facility] [address] [place] [address] Telephone Intake, Staff Social History Tobacco Use Types Packs/Day Years [...] encounter Miscellaneous Notes * Telephone Encounter - Delia Geovanna Francis - 01/24/2023 2:22 PM EDT Patient - Roxanne would like to speak to Dr. Street. 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 Roxanne is saying that she is having severe pain. Roxanne is sending information to Imani To The genetic counselor with more information through [employer]. If Imani To can pass this information on to Dr. Street. Please give Roxanne a call at: [phone] documented in this encounter Plan of Treatment Not on file documented as of this encounter Visit Diagnoses Not on filedocumented in this encounter Care Teams Ic Designer Standard Cells Relationship Specialty Start Date End Date Anmol Garza [address] [place] [address] PCP - General Family Medicine 04/22/24 documented as of this encounter
--- OUTSIDE RECORDS SUMMARY | 2025-03-31 01:55 | XMS_ITS | Data Portability ---
Author Organization [place] - [facility], Allergy Address [address] [address] Care Team Providers Care Technical Intern Name Role Phone ANTHONY KOTHARI Primary Care Provider ANTHONY KOTHARI Referring Provider Assessment Encounter Date Assessment Date Assessment LastModified by Organization Details LastModified Time 02/16/2025 02/16/2025 The patient's circumvallate papillae are normal anatomical structures and do not require intervention. I educated the patient on the normalcy of these structures and advised against further manipulation or attempts to remove them. The patient reports nasal obstruction and difficulty breathing through her sleep apnea machine. I recommended obtaining her sleep study records to assess the severity of her central apnea and compliance with treatment. Further evaluation and management of her nasal obstruction will be addressed in future visits. The patient expressed concerns about focusing her energy on managing psoriatic arthritis. I acknowledged her concerns and advised her to prioritize her health needs based on her symptoms and energy levels. The patient mentioned her mother's recent facial trauma, including a broken nose and teeth. I advised her to ensure her mother receives urgent medical attention and reconstructive evaluation as needed. [email or web address] Not available 02/16/2025 15:05:40 Plan of Treatment Reminders Order Date Submit Date Provider Last Modified By Organization Details Last Modified Time Details Appointments None record ed. Lab None record ed. Referral None record ed. Procedures None record ed. Surgeries None record ed. Imaging None record ed. Medication Orders None record ed. Patient TargetsNo targets recorded. Patient Instructions Encounter Date Encounter Id Patient Instructions Last Modified By Organization Details Last Modified Time 02/16/2025 [id number] Avoid manipulating or attempting to remove the circumvallate papillae. Obtain sleep study records for further evaluation. Prioritize health needs based on symptoms and energy levels. Ensure mother receives urgent medical attention for facial trauma. [email or web address] Not available 02/16/2025 15:05:40 Please note: Par ts of this encounter note have been generated by AI based on audio conversation. Patient consent was required prior to utilizing this technology. Content review was required prior to finalizing the note. [email or web address] Not available 02/16/2025 15:05:40 Reason for Referral None Reported. 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; Note: Date Diagnosed : 09/22/2015 11:02 AM (J33.1) Not Available [facility] 4 02:40:56 Headache 70350188 Active 2015 Headache; Note: Date Diagnosed : 09/22/2015 10:19 AM (R51) Not Available [facility] 4 02:40:57 Chronic sinusitis 70239130 Active 2015 Other chronic sinusitis ; Note: Date Diagnosed : 09/22/2015 10:19 AM (J32.8) Not Available [facility] 4 02:40:55 Lesion of tongue 604870873 Active 2024 JOSE LUKE MD [address] [place] [address], [place], [address] , [facility] - [facility] 5 15:05:26 Central sleep apnea syndrome 41232447 Active 2024 JOSE LUKE MD [address] [place], [place] [address], [address] , [facility] - [facility] 5 15:05:31 Multiple sclerosis 36762536 Active 2024 JOSE LUKE MD [address] [place], [place] [address], [address] , [facility] - [facility] 5 15:05:40 Problem Notes None recorded. Medical Equipment None Reported. Allergies Allergen ID Allergen Name Allergen Category Reaction Reaction Severity Criticality Documentation Date Start Date Code Code System Note Provider Name and Address Organization Details Recorded Time 55428 Phenergan medicatio n other Not available Not available 10/14/2023 48203 8 RxNorm React ion: unkno wn, unspe cifie d;; Not Available [facility] 4 00:55:01 92869 erythromy connie ethylsucc inate medicatio n other Not available Not available 10/14/2023 4056 RxNorm React ion: unkno wn, unspe cifie d;; Not Available [facility] 4 00:55:01 05485 penicilli n V potassium medicatio n other Not available Not available 10/14/2023 75449 5 RxNorm React ion: unkno wn, unspe cifie d;; Not Available [facility] 4 00:55:05 Medications Name Sig Start Date Stop Date Status Note LastModified by Organization Details LastModified Time butalbita l-acetami nophen-ca ffeine 50 mg-325 mg-40 mg tablet 2015 active Medicati on ID: 561074 D uration Value: 3 Brand Name: butalbit al-aceta minophen -caff Se nd Method: E-Prescr ibed Sub s Allowed: subs OK Medic ationGen ericName : butalbit al-aceta minophen -caff Not Available Not Available Not Available oxycodone -acetamin ophen 5 mg-325 mg tablet 2015 active Medicati on ID: 696979 D uration Value: 3 Brand Name: oxycodon e-acetam inophen Send Method: E-Prescr ibed Sub s Allowed: subs OK Medic ationGen ericName : oxycodon e-acetam inophen Not Available Not Available Not Available citalopra m 20 mg tablet 02/16 completed Medicati on ID: 398723 D uration Value: 30 Brand Name: citalopr am Send Method: E-Prescr ibed Sub s Allowed: subs OK Medic ationGen ericName : citalopr am Not Available Not Available Not Available norethind law acetate 5 mg tablet 2015 active Medicati on ID: 216320 D uration Value: 30 Brand Name: norethin drone acetate Send Method: E-Prescr ibed Sub s Allowed: subs OK Medic ationGen ericName : norethin drone acetate Not Available Not Available Not Available fluticaso ne propionat e 50 mcg/actua tion nasal spray,tonya pension 2 puff into both nostrils 2015 active Medicati on ID: [id number] D uration Value: 120 Prescri bed By Name: Emil Millan nd Name: fluticas one Send Method: E-Prescr ibed Sub s Allowed: subs OK Medic ationGen ericName : fluticas one Not Available Not Available Not Available prednison e 02/16 completed Medicati on ID: [id number] D uration Value: 10 Prescri bed By Name: Emil Millan nd Name: predniso ne Send Method: E-Prescr ibed Sub s Allowed: subs OK Speci al Instruct ion: takes 3 tablets daily for 3 days, 2 tablets daily for 3 daysand 1 tablet daily for 3 days Med icationG enericNa me: predniso ne Not Available Not Available Not Available Vitals Date Recorded Body height Body mass index (BMI) Body weight Provider Name and Address Organization Details Last Updated DateTime 02/16/2025 167.64 cm 24.4 kg/m2 69599.45 g [facility] - [facility] 02/16/2025 14:53:10 Social History None recorded. Functional Status None recorded. Mental Status None recorded. Family History Nothing Reported Notes: Mother recently suffered facial trauma, including a broken nose and teeth. Medical History Condition Response Anemia Y Arthritis Y Migraines Y Anxiety Y Asthma Y Gynecological HistoryNo gynecological history recorded. Obstetrics History GPAL:G 0 P 0 0 0 0 Past Encounters Encounter ID Performer Location Encounter Start Date Encounter Closed Date Diagnosis/Indication Diagnosis SNOMED-CT Code Diagnosis ICD10 Code Diagnosis IMO Codes Diagnosis Note [id number] JOSE LUKE MD [facility] [address] [address] 02/16/2025 14:15:56 02/16/2025 15:15:22 Lesion of tongue 487711797 K14.8 784610 Central sl eep apnea syndrome 47592314 G47.31 369499 Multiple sclerosis 09112 007 G35 82689 Health Concerns Section Related Observation LastModified by Organization Detai ls LastModified Time None Recorded Concern Status LastModified by Organization Details LastModified Time None Recorded Advance Directives Directive None Recorded Payers Insurance Date Sequence Insurance Name Policy Number Policy Summers Covered Member ID Summers Member ID Guarantor Name 03/17/2025 1 [place] [facility] Roxanne Parker [id number] Roxanne Parker 03/17/2025 2 [place] [facility] [id number] Jose Parker [id number] Roxanne Parker Notes Date Note Type Note Provider Name and Address Organization Details Recorded Time 02/16/2025 text/html tongue lesion PMHx - [place] Roxanne Parker is a 44-year-old female who presents for evaluation of lesions on the back of her tongue. She reports noticing these lesions approximately a year ago, initially dismissing them as enlarged taste buds. Recently, she observed that the lesions have increased in size. She attempted to manipulate them using dental floss and a tooth diabetes trainer, causing bleeding but no pain. She denies any associated pain in the tongue. Her medical history includes multiple sclerosis (MS) and a history of HPV contracted in 07/2004. She has a smoking history of 27 years but transitioned to vaping in 2016 and quit smoking entirely in 2022. She also reports difficulty breathing through her nose, describing it as anna to breathing through coffee straws, which worsens with her sleep apnea machine use. She experiences central apnea, stopping breathing 41 times per hour, and is unable to tolerate her sleep apnea machine due to nasal obstruction. She expresses concern about whether her psoriatic arthritis may be exacerbating her symptoms. Additionally, she mentions her mother recently suffered facial trauma, including a broken nose and teeth, requiring reconstructive surgery. JOSE LUKE MD [address] [place] [address], [place], [address], [facility] - [facility] 02/16/2025 15:06:40 OBGyn Episode No OBEpisode recorded.
--- OUTSIDE RECORDS SUMMARY | 2025-03-31 01:55 | XMS_ITS | Encounter Summary ---
Author Organization [facility] Address [address] [place] [address] Care Team Providers Care Copy Director Name Role Phone Anmol Garza Primary Care Provider [phone] Encounter Details Date Type Department Care Team (Late st Contact Info) Description 03/13/2023 Orders Only [facility] [address] [place] [address] Provider, Cesar, [place] [address] Social History Tobacco Use Types Packs/Day Years [...] on file documented as of this encounter Procedures * Due to [place] [employer] law, this organization might not be sharing negative HIV tests. Procedure Name Priority Date/Time Associated Diagnosis Comments LAB - SCANNED Routine 03/07/2023 1:36 PM EDT documented in this encounter Results * Due to [place] [employer] law, this organization might not be sharing negative HIV tests. * LAB - SCANNED (03/07/2023 1:36 PM EDT) us Unknown Provider MD LAB HISTORICAL RESULTS Final Result documented in this encounter Visit Diagnoses Not on filedocumented in this encounter Care Teams Copy Director Relationship Specialty Start Date End Date Anmol Garza [address] [place] [address] PCP - General Family Medicine 04/22/24 documented as of this encounter
--- OUTSIDE RECORDS SUMMARY | 2025-03-31 01:55 | XMS_ITS | Encounter Summary ---
Author Organization [facility] Address [address] [place] [address] Care Team Providers Care Pearl Hand Name Role Phone Anmol Garza Primary Care Provider Reason for Visit * Reason Onset Date Comments TeleHealth Video 05/28/2021 Encounter Details Date Type Department Care Team (Late st Contact Info) Description 05/28/2021 Telephone [facility] Central Scheduling Department [address] [place] [address] Telephone Intake, Staff TeleHealth Video Social History Tobacco Use Types Packs/Day Years [...] encounter Miscellaneous Notes * Telephone Encounter - Sridevi Abdi - 05/28/2021 4:15 PM EST MS PT trying to reschedule 05/[address] Jorge Martin to a TeleHealth Video visit Pt called after the [place] clinic closed Sending TE to [facility] Multiple Sclerosis Admin Staff High priority to contact pt tomorrow morning to let her know if she can do TeleHealth instead of Inperson tomorrow at 3pm #[phone] documented in this encounter Plan of Treatment Not on file documented as of this encounter Visit Diagnoses Not on filedocumented in this encounter Care Teams Pearl Hand Relationship Specialty Start Date End Date Anmol Garza [address] [place] [address] PCP - General Family Medicine 04/22/24 documented as of this encounter
--- OUTSIDE RECORDS SUMMARY | 2025-03-31 01:55 | XMS_ITS | Encounter Summary ---
Author Organization [facility] Address [address] [place] [address] Care Team Providers Care Felt Hat Flanging Operator Name Role Phone Anmol Garza Primary Care Provider [phone] Encounter Details Date Type Department Care Team (Late st Contact Info) Description 09/13/2022 [employer] Message [facility] [address] [address] Mychart, Generic Provider [address] [place], [place] [phone] Medication Refill Social History Tobacco Use Types Packs/Day Years [...] on filedocumented in this encounter Care Teams Felt Hat Flanging Operator Relationship Specialty Start Date End Date Anmol Garza [address] [place] [address] [place] [address] PCP - General Family Medicine 04/22/24 documented as of this encounter
--- OUTSIDE RECORDS SUMMARY | 2025-03-31 01:55 | XMS_ITS | Encounter Summary ---
Author Organization [facility] Address [address] [place] [address] Care Team Providers Care Transcribing Operators Supervisor Name Role Phone Anmol Garza [place] Primary Care Provider Reason for Visit * Reason Onset Date Comments PAC Patient Request Call Back 09/16/2024 PAC Urgent Appt Request 09/16/2024 Encounter Details Date Type Department Care Team (Late st Contact Info) Description 09/16/2024 Telephone [facility] [address] [employer] Homes Repairer: EVGENY DILLON Telephone Intake, Staff PAC Patient Request Call Back; PAC Urgent Appt Request Social History Tobacco Use Types Packs/Day Years [...] encounter Miscellaneous Notes * Telephone Encounter - Barby Geiger - 09/16/2024 9:04 AM EDT Pt called in she needs an urgent appointment to better understand her MS and it is necessary as it is time sensitive issue. Please call pt for scheduling @ [phone] documented in this encounter Plan of Treatment Not on file documented as of this encounter Visit Diagnoses Not on filedocumented in this encounter Care Teams Transcribing Operators Supervisor Relationship Specialty Start Date End Date Anmol Garza [address] [place] [address] PCP - General Family Medicine 04/22/24 documented as of this encounter
--- OUTSIDE RECORDS SUMMARY | 2025-03-31 01:55 | XMS_ITS | Encounter Summary ---
Author Organization [facility] Address [address] [place] [address] Care Team Providers Care Intelligence Senior Sergeant Name Role Phone Anmol Garza Primary Care Provider [phone] Encounter Details Date Type Department Care Team (Late st Contact Info) Description 03/17/2023 Orders Only [facility] [address] [place] [address] Provider, Cesar, [facility] [place] [address] Social History Tobacco Use Types [...] of this encounter Procedures * Due to [place] [employer] law, this organization might not be sharing negative HIV tests. Procedure Name Priority Date/Time Associated Diagnosis Comments LAB - SCANNED Routine 03/07/2023 10:29 AM EDT documented in this encounter Results * Due to [place] [employer] law, this organization might not be sharing negative HIV tests. * LAB - SCANNED (03/07/2023 10:29 AM EDT) us Unknown Provider MD LAB HISTORICAL RESULTS Final Result documented in this encounter Visit Diagnoses Not on filedocumented in this encounter Care Teams Intelligence Senior Sergeant Relationship Specialty Start Date End Date Anmol Garza [address] [place] [address] PCP - General Family Medicine 04/22/24 documented as of this encounter
--- OUTSIDE RECORDS SUMMARY | 2025-03-31 01:55 | XMS_ITS | Encounter Summary ---
Author Organization [facility] Address [address] [place] [address] Care Team Providers Care Quality Control Assistant Name Role Phone Anmol Garza Primary Care Provider [phone] Reason for Visit * Reason Onset Date Comments Question for Nurse/Provider 10/31/2020 Encounter Details Date Type Department Care Team (Late st Contact Info) Description 10/31/2020 Telephone [facility] Central Scheduling Department [address] [place] [address] Telephone Intake, Staff Question for Nurse/Provider Social History Tobacco Use Types Packs/Day Years [...] * Telephone Encounter - Carlos Reeves - 10/31/2020 5:02 PM EDT Pt is calling in regards to her medication. Pt is currently taking meds for MS and seizures and would like to speak with Dr. Martin about possible adding another med into the mixture. documented in this encounter Plan of Treatment Not on file documented as of this encounter Visit Diagnoses Not on filedocumented in this encounter Care Teams Quality Control Assistant Relationship Specialty Start Date End Date Anmol Garza [address] [place] [address] PCP - General Family Medicine 04/22/24 documented as of this encounter
--- OUTSIDE RECORDS SUMMARY | 2025-03-31 01:56 | XMS_ITS | Encounter Summary ---
Author Organization [facility] Address [address] [place] [address] Care Team Providers Care Modern Dancer Name Role Phone AspenluisaAnmol mujica Dakotah Primary Care Provider Encounter Details Date Type Department Care Team (Late st Contact Info) Description 02/08/2022 Telephone [facility] [address] [place] [address] Telephone Intake, Staff Social History Tobacco Use [...] encounter Miscellaneous Notes * Telephone Encounter - Natali Guevara - 02/08/2022 12:59 PM EDT Called pt left message for call back to [facility] with tresa. * Telephone Encounter - Marlene Chavez - 02/08/2022 12:46 PM EDT PT called to reschedule telehealth appt with Tresa Vasques for today at 1pm. Wanted to know if Tresa is available at 3pm today. She is still in a lot of pain and would like to talk to Tresa. documented in this encounter Plan of Treatment Not on file documented as of this encounter Visit Diagnoses Not on filedocumented in this encounter Care Teams Modern Dancer Relationship Specialty Start Date End Date Anmol Garza [address] [place] [address] PCP - General Family Medicine 04/22/24 documented as of this encounter
--- OUTSIDE RECORDS SUMMARY | 2025-03-31 01:56 | XMS_ITS | Encounter Summary ---
Author Organization [facility] Address [address] [place] [address] Care Team Providers Care Skiver Machine Operator Name Role Phone Anmol Garza Primary Care Provider [phone] Reason for Visit * Reason Onset Date Comments Multiple Sclerosis 03/26/2022 Encounter Details Date Type Department Care Team (Late st Contact Info) Description 03/26/2022 Telephone [facility] Central Scheduling Department [address] [place] [address] Telephone Intake, Staff Multiple Sclerosis Social History Tobacco Use Types Packs/Day Years [...] encounter Miscellaneous Notes * Telephone Encounter - Eleanor Sim - 03/26/2022 9:09 AM EDT PT has a telehealth at 11am and wants to know if you can make it at 1pm. She has had no sleep last night documented in this encounter Plan of Treatment Not on file documented as of this encounter Visit Diagnoses Not on filedocumented in this encounter Care Teams Skiver Machine Operator Relationship Specialty Start Date End Date Anmol Garza [address] [place] [address] PCP - General Family Medicine 04/22/24 documented as of this encounter
--- OUTSIDE RECORDS SUMMARY | 2025-03-31 01:56 | XMS_ITS | Encounter Summary ---
Author Organization [facility] Address [address] [place] [address] Care Team Providers Care Guest Associate Name Role Phone Anmol Garza MD Primary Care Provider [phone] Encounter Details Date Type Department Care Team ([facility] st Contact Info) Description 03/29/2025 Telephone [facility] [address] [place] [address] Rakel Nelson [place] Social History Tobacco Use Types Packs/Day Years Used Date Smoking Tobacco: Former Smokeless Tobacco: Never Alcohol Use Standard Drinks/Week Comments Not Asked 0 (1 standard drink = 0.6 oz pur e alcohol) Comments Unknown Sex and Gender Information Value Date Recorded Sex Assigned at Not on file Legal Sex Female 10:17 AM EST Gender Identity Not on file Sexual Orientation Not on file documented as of this encounter Progress Notes * Rakel Nelson MA - 03/29/2025 4:21 PM EDT Received message from [facility] dept to reach out to patient if she wants to stay booked with [facility] rather go to [place]. Called patient let her know that it is her choice where she would like to go but if she goes to [facility] the dr can see the images right away rather than somewhere else and having to upload a disc with images but made very aware it is up to the patient. She said that it is fine she will go to [facility] because she is already scheduled for and doesn't want to delay any more care. [facility] only concerns [facility] was that she felt wrongfully treated over the phoneby whoever called to schedule her and that they were pushy. Over all she will go to [facility] documented in this encounter Plan of Treatment Upcoming Encounters Date Type Department Care Team (Late st Contact Info) Description 03/31/2025 1:15 PM EDT Appointment [facility] [address] [place] [phone] 05/19/2025 1:30 PM EST Office Visit [facility] [address] [place] [phone] Andre Hooks MD [address] [place] [address] documented as of this encounter Visit Diagnoses Not on filedocumented in this encounter Care Teams Guest Associate Relationship Specialty Start Date End Date Anmol Garza MD [address] [place] [address] [place] [address] [place] [address] PCP - General Internal Medicine 05/11/21 documented as of this encounter
--- OUTSIDE RECORDS SUMMARY | 2025-03-31 01:56 | XMS_ITS | Clinical Summary ---
Author Organization [facility] Address [address] [place] [address] Care Team Providers Care Manager Furniture Name Role Phone Anmol Garza Primary Care Provider Allergies Active Allergy Reactions Criticality Noted Date Comments Cephalexin Vomiting,Unknown 01/12/2018 Codeine Nausea And Vomiting 07/04/2005 Dexamethasone Wheezing,Swelling High 10/22/2005 Droperidol Anaphylaxis,Vocal cord Spasm High 04/08/2024 Erythromycin Dyspnea,Swelling High 07/04/2005 unknown Erythromycin Base Unknown 09/05/2017 Famotidine Anxiety,Other (see comments) 07/16/2021 Constipation, confusion, and severe neck pain. Other reaction(s): Other (See Comments) Constipation, confusion, and severe neck pain. Constipation, confusion, and severe neck pain. Other reaction(s): Other (See Comments) Constipation, confusion, and severe neck pain. Fentanyl Unknown,Itching Medium 03/26/2007 Gluten Diarrhea,Vomiting 01/12/2018 Haloperidol Anxiety,Nausea And Vomiting,Other (see comments) Low 12/15/2020 Latex Rash High 10/14/2005 Lorazepam Unknown 06/03/2018 Meclizine Unknown 09/05/2017 Meclizine Hcl Unknown 07/04/2005 unknown Methylprednisolone Hives High 09/05/2017 Depression, anxiety, intense excitement/happi ness,personality changes,psychosi s, loss of ability to urinate, severe pain in body, vomiting, dizziness, vertigo,/almost fainting, tremors, lack of energy, loss of apetite, headaches,, joint pain,vision changes, weight loss Norelgestromin-Ethin.Estrad iol Nausea And Vomiting 07/04/2005 ? related to latex in patch Penicillins Unknown 07/04/2005 unknown Prednisone Wheezing,Swelling High 10/22/2005 Promethazine Unknown 07/04/2005 unknown Sulfa (Sulfonamide Antibiotics) Swelling,Rash,Eryth romy multiforme High 01/12/2018 Sulfamethoxazole-Trimethopr im Rash,Swelling High 01/12/2018 Diazepam Anxiety 11/10/2020 Medications oxyCODONE IR (ROXICODONE) 5 mg tablet Takes 2 tabs every 4 hrs 0 08/31/19 18 Active DOCUSATE SODIUM (COLACE ORAL) Take by mouth daily. Active sulfacetamide sodium, acne, 10 % suspension Apply topically to the affected area 2 times a day. Apply to affected area 2 01/31/20 18 Active acetaminophen (TYLENOL) 325 mg tablet acetaminophen 325 mg tablet 650 mg PO administered on scene. Time administered: [address] (CYMBALTA) 60 mg capsule duloxetine 60 mg capsule,delayed release Active carbidopa (LODOSYN) 25 mg tablet carbidopa 25 mg tablet TAKE 3 TABLETS BY MOUTH IN THE MORNING AND 2 TABLETS IN THE AFTERNOON AND 3 TABLETS IN THE EVENING Active albuterol 2.5 mg/3 mL (0.083%) nebulizer solution albuterol sulfate 2.5 mg/3 mL (0.083 %) solution for nebulization INHALE 1 VIAL VIA NEBULIZER EVERY 6 HOURS NEEDED FOR WHEEZING Active drospirenone, contraceptive , (Slynd) 4 mg (28) tablet 11/17/19 21 Active levocetirizin e (XYZAL) 5 mg tablet Takes 2 tabs BID 01/27/20 21 Active sennosides 8.6 mg capsule Active Xtampza ER 9 mg capsule,sprin kle,ER 12hr tmprr 03/27/20 22 Active nicotine 21-14-7 mg/24 hr patch, TD daily, sequential Place 1 Package on the skin once a day. 1 each 05/06/20 22 Active simethicone (MYLICON) 80 mg chewable tablet Chew and swallow 80 mg by mouth 2 times a day. Active mometasone (ELOCON) 0.1 % ointmentIndic ations:Rash Apply to the rash on the body up to twice a day for 2 weeks, then take a week off, then repeat as needed until rash is improved. Avoid the face, armpits, breasts, and groin 45 g 2 05/07/20 24 Active clobetasoL (TEMOVATE) 0.05% ointmentIndic ations:Rash Apply up to twice daily to the rash on the feet and keep them covered. Use for up to 2 weeks at a time and take a week off, then repeat as needed. Avoid applying it to the rest of the body 60 g 3 05/27/20 24 Active tiZANidine (ZANAFLEX) 4 mg tabletIndicat ions:Multiple sclerosis, relapsing-rem itting Take 1 tablet (4 mg total) by mouth 3 times a day. 270 tablet 1 11/02/19 25 Active modafiniL (PROVIGIL) 100 mg tabletIndicat ions:Multiple sclerosis Take 1 tablet (100 mg total) by mouth once a day. 30 tablet 5 11/02/19 25 025 Active OXcarbazepine (TRILEPTAL) 300 mg tabletIndicat ions:Multiple sclerosis, relapsing-rem itting,Dysaut onomia Take 1 tablet (300 mg total) by mouth 2 times a day. 60 tablet 11/11/19 25 Active baclofen (LIORESAL) 10 mg tablet Take 3 tablets (30 mg total) by mouth 3 times a day. 270 tablet 5 12/03/19 25 Active citalopram (CeleXA) 40 mg tablet Take 40 mg by mouth daily. 5 03/07/20 18 019 Discontinued Active Problems Problem Noted Date Diagnosed Date Bursitis of left hip 06/08/2024 Assessment & Plan (06/08/2024 12:48 PM EST): Patient with known left hip dysplasia reporting worsening pain at left hip. Does report pain when she lies on her left side. Reports that she needs to continuously pop that joint. X-ray imaging showed bilaterally deficient acetabular coverage of femoral heads with no SI joint involvement. When seen in person on 04/08/2024, patient did have tenderness to palpation at bilateral greater trochanters left worse than right. Suspect multifactorial in setting of hip dysplasia and trochanteric bursitis. Discussed with patient that physical therapy to strengthen gluteal and thigh muscles would be first-line treatment. Patient states that she is past the stage of physical therapy and also states that she will not be able to attend sessions due to her upcoming trial. Discussed with patient that would typically offer steroid injection for the trochanteric bursa however patient reports that she is unable to be transported to the clinic for this. Therefore, as it is imperative that patient be seen by dermatology in person for an accurate assessment and diagnosis, will have patient on prednisone taper so that she is able to be seen by dermatology in person. Patient agreeable to this plan. - Prednisone 20 mg daily x 5 days, 15 mg daily x 5 days f/b 10mg daily until seen by Dermatology Hip dysplasia 04/08/2024 Assessment & Plan (06/08/2024 12:41 PM EST): Patient with history of left hip dysplasia treated as a child mainly PT with no surgical intervention. Prior imaging notable for bilateral dysplastic acetabulum with subchondral sclerosis and osteophytes. Patient previously [place] [facility] [place] for progressive left greater than right hip pain. Patient noted to have mild to moderate degenerative changes of the hip and discussed that patient may 1 day benefit from elective total joint replacement however has not yet exhausted conservative treatment modalities. Recommend NSAIDs and/or Tylenol as able and physical therapy. If these fail, could be candidate for cortisone injection. Patient mainly presenting with bilateral hip pain. While endorses pain at the feet, seems to be secondary to skin rather than joint. Patient has had extensive workup in the past for inflammatory arthritis. While she does have a diagnosis of inflammatory arthritis from [facility] [place], unclear on how this was diagnosed. Patient has had multiple imaging studies done without evidence of sacroiliitis or erosions suggestive of inflammatory arthropathy. On exam, patient with no evidence of synovitis or joint tenderness. Patient has been off of methotrexate and IL-17 inhibitor for quite some time by this point. Discussed with patient that hip pain most likely secondary to the known dysplasia and resultant osteoarthritis. May benefit from reevaluation and another trial of corticosteroid injection to the hip. Had referred to orthopedic surgery however was not seen yet. Assessment & Plan (04/08/2024 2:58 PM EST): Patient with history of left hip dysplasia treated as a child mainly PT with no surgical intervention. Prior imaging notable for bilateral dysplastic acetabulum with subchondral sclerosis and osteophytes. Patient previously seen by [facility] [place] in 07/2022 for progressive left greater than right hip pain. Patient noted to have mild to moderate degenerative changes of the hip and discussed that patient may 1 day benefit from elective total joint replacement however has not yet exhausted conservative treatment modalities. Recommend NSAIDs and/or Tylenol as able and physical therapy. If these fail, could be candidate for cortisone injection. Patient mainly presenting with bilateral hip pain. While endorses pain at the feet, seems to be secondary to skin rather than joint. Patient has had extensive workup in the past for inflammatory arthritis. While she does have a diagnosis of inflammatory arthritis from [facility] [place], unclear on how this was diagnosed. Patient has had multiple imaging studies done without evidence of sacroiliitis or erosions suggestive of inflammatory arthropathy. On exam, patient with no evidence of synovitis or joint tenderness. Patient has been off of methotrexate and IL-17 inhibitor for quite some time by this point. Discussed with patient that hip pain most likely secondary to the known dysplasia and resultant osteoarthritis. May benefit from reevaluation and another trial of corticosteroid injection to the hip. - Refer to orthopedic surgery - follow up XR Hips Arthralgia 04/08/2024 Assessment & Plan (06/08/2024 12:51 PM EST): Patient presenting as a new patient to [facility] rheumatology. Patient previously followed by Dr. Bae at [facility] and most recently seen in 11/2023. Patient with reported acute onset swelling and pain at bilateral legs with left knee joint aspiration done at [place] in 2021 with synovial fluid showing 21,000 WBCs. At that time was referred to [facility] [place]. 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 Patient had been started on methotrexate in 2022 with improvement in lower extremity swelling although patient denies significant improvement re: pain nor skin disease. Patient followed by outside hospital dermatology with unclear diagnosis. Prior chart review indicates dyshidrotic eczema which seems consistent with how patient is presenting. 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 Upon chart review, seems as though there was miscommunication among multidisciplinary teams. Dr. Martin had suggested Cosentyx as possible therapeutic for psoriasis and had deferred to dermatology regarding this. Dr. Martin writes in his note that patient's MS is currently in complete remission and therefore does not seem to be offering up this medication as a adjunct MS medication which patient was implying. At that time, outside hospital dermatology deferred to rheumatology. The patient was then seen by PUBLIC RELATIONS COORDINATOR at [facility] [place] who had started patient on Cosentyx. Patient presenting mainly with bilateral hip pain and feet pain. Hip pain seems c/w hip osteoarthritis secondary to her known dysplasia. Prior imaging has not showed any sacroiliitis or erosions suggestive of inflammatory arthritis. Feet pain most likely secondary to skin disease. At this time, from a rheumatologic standpoint, no indication to have patient on methotrexate nor Cosentyx as she does not exhibit signs of inflammatory arthritis. This may change in the future. However, given active skin disease, will refer to dermatology and defer to them regarding therapeutic agent. Seen by dermatology as telehealth visit on 05/04/2024 at which time patient was prescribed mometasone cream but advised to present for in person visit for more accurate exam. Patient presenting today reporting diffuse body pain and flare of skin rash. Patient's diffuse pain seems to be more consistent with secondary pain from her known hip dysplasia, OA, hip bursitis. Her skin manifestation is still unclear to us if psoriasis or other. From a rheumatologic perspective, again it is limited as patient is not presenting in person but presentation not suggestive of inflammatory arthritis and imaging also not suggestive of this. If patient were to have psoriasis and be started on biologic medication, would not have any objection and could also monitor for improvement in joint symptoms. At this time, patient advised to be seen by dermatology in person. Extensively discussed with patient that from our perspective, presentation not suggestive of psoriatic arthritis and therefore no indication for methotrexate nor Cosentyx. However, if she were to be seen by dermatology and diagnosed with psoriasis, it would be reasonable for them to start her on the medication. Patient states that she needs medication for her MS also. Discussed with patient that this should be discussed with her neurologist as we would not be able to monitor her MS symptoms and primary indication would not be for rheumatologic condition. - RTC in 3 months Assessment & Plan (04/08/2024 3:04 PM EST): Patient presenting as a new patient to [facility] rheumatology. Patient previously followed by Dr. Bae at [facility] and most recently seen in 11/2023. Patient with reported acute onset swelling and pain at bilateral legs with left knee joint aspiration done at [facility] in 2021 with synovial fluid showing 21,000 WBCs. At that time was referred to [facility] [place]. 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 Patient had been started on methotrexate in 2022 with improvement in lower extremity swelling although patient denies significant improvement re: pain nor skin disease. Patient followed by outside hospital dermatology with unclear diagnosis. Prior chart review indicates dyshidrotic eczema which seems consistent with how patient is presenting. 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 Upon chart review, seems as though there was miscommunication among multidisciplinary teams. Dr. Martin had suggested Cosentyx as possible therapeutic for psoriasis and had deferred to dermatology regarding this. Dr. Martin writes in his note that patient's MS is currently in complete remission and therefore does not seem to be offering up this medication as a adjunct MS medication which patient was implying. At that time, outside hospital dermatology deferred to rheumatology. The patient was then seen by PUBLIC RELATIONS COORDINATOR at [facility] [place] who had started patient on Cosentyx. Patient presenting mainly with bilateral hip pain and feet pain. Hip pain seems c/w hip osteoarthritis secondary to her known dysplasia. Prior imaging has not showed any sacroiliitis or erosions suggestive of inflammatory arthritis. Feet pain most likely secondary to skin disease. At this time, from a rheumatologic standpoint, no indication to have patient on methotrexate nor Cosentyx as she does not exhibit signs of inflammatory arthritis. This may change in the future. However, given active skin disease, will refer to dermatology and defer to them regarding therapeutic agent. - RTC in 3 months Skin rash 04/08/2024 Assessment & Plan (06/08/2024 12:42 PM EST): Patient presenting with a diagnosis of palmoplantar psoriasis however unclear on how this was diagnosed. Patient reporting onset of vesicles at palm and feet in 2021. Reportedly seen by a manufacturing controls engineer at that time who diagnosed her with dyshidrotic eczema. Patient most recently seen by Dr. Evy Norris in [place] [facility] on 02/06/2024. Unclear documentation as per Dr. Bae, patient had only been seen by Dr. Norris as a virtual visits and reported hypothenar rash with inability to see pustules via camera which would be atypical for palmoplantar psoriasis. 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 When asked about diagnosis, patient reports that she had plaque psoriasis as a child at her ankles and elbows but did not have skin disease as an adult. In 2021 developed these almost blisterlike symptoms. When asked about the diagnosis of dyshidrotic eczema, patient reports that she was told that production of yellow material from the pustules indicated palmar pustular psoriasis. Patient reports she is currently on compounded topical medication. Reports skin disease to not be well-controlled. Endorsing flare at left heel. Per Dr. Norris note from 02/06/2024, recommended referral to [facility] dermatology given complex case. On exam, patient noted to have blistering spongiotic vesicles at soles of feet and heels. No obvious psoriatic plaques noted. At this time, patient without evidence of inflammatory arthritis. Has had multiple imaging done without evidence of sacroiliitis nor erosions secondary to inflammatory arthropathy. Patient does have 1 instance of inflammatory fluid aspirated from the left knee back in 2021. However repeat joint fluid unremarkable and workup since has been unremarkable with negative inflammatory markers. On exam, patient without joint synovitis or significant tenderness. Pain mostly secondary to her known hip dysplasia and given findings at feet. As this is the first time I am seeing patient it is difficult to comment on what was seen in to lead to inflammatory arthritis diagnosis. At this time, there is no exam findings suggestive of ongoing inflammatory arthritis; more notable as patient has been off of methotrexate and cosentyx for 1-2 months. Unclear etiology of patient's skin findings however if they were to be psoriasis, would be best managed by dermatology. They can also determine if Cosentyx is reasonable for patient's skin disease. From a rheumatologic standpoint, there is currently no indication for methotrexate nor Cosentyx. Advised patient be seen by dermatology in person. Given patient's diffuse pain and presentation suggestive of left hip bursitis, well would typically offer corticosteroid injection to bursa, as patient is unable to come to the clinic, prescribed prednisone. Discussed with patient that we will put her on prednisone to see if this will improve her pain so that she is able to be seen by dermatology in person for accurate diagnosis. Assessment & Plan (04/08/2024 2:57 PM EST): Patient presenting with a diagnosis of palmoplantar psoriasis however unclear on how this was diagnosed. Patient reporting onset of vesicles at palm and feet in 2021. Reportedly seen by a manufacturing controls engineer at that time who diagnosed her with dyshidrotic eczema. Patient most recently seen by Dr. Evy Norris in [place] [facility] on 02/06/2024. Unclear documentation as per Dr. Bae, patient had only been seen by Dr. Norris as a virtual visits and reported hypothenar rash with inability to see pustules via camera which would be atypical for palmoplantar psoriasis. 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 When asked about diagnosis, patient reports that she had plaque psoriasis as a child at her ankles and elbows but did not have skin disease as an adult. In 2021 developed these almost blisterlike symptoms. When asked about the diagnosis of dyshidrotic eczema, patient reports that she was told that production of yellow material from the pustules indicated palmar pustular psoriasis. Patient reports she is currently on compounded topical medication. Reports skin disease to not be well-controlled. Endorsing flare at left heel. Per Dr. Norris note from 02/06/2024, recommended referral to [facility] dermatology given complex case. On exam, patient noted to have blistering spongiotic vesicles at soles of feet and heels. No obvious psoriatic plaques noted. At this time, patient without evidence of inflammatory arthritis. Has had multiple imaging done without evidence of sacroiliitis nor erosions secondary to inflammatory arthropathy. Patient does have 1 instance of inflammatory fluid aspirated from the left knee back in 2021. However repeat joint fluid unremarkable and workup since has been unremarkable with negative inflammatory markers. On exam, patient without joint synovitis or significant tenderness. Pain mostly secondary to her known hip dysplasia and given findings at feet. As this is the first time I am seeing patient it is difficult to comment on what was seen in to lead to inflammatory arthritis diagnosis. At this time, there is no exam findings suggestive of ongoing inflammatory arthritis; more notable as patient has been off of methotrexate and cosentyx for 1-2 months. Unclear etiology of patient's skin findings however if they were to be psoriasis, would be best managed by dermatology. They can also determine if Cosentyx is reasonable for patient's skin disease. From a rheumatologic standpoint, there is currently no indication for methotrexate nor Cosentyx. Patient upset as she reports that her insurance will change. Will put an urgent referral to dermatology given patient's situation. - Urgent referral to dermatology Dysautonomia 11/02/2020 Hyperesthesia 11/02/2020 PTSD (post-traumatic stress disorder) 07/13/2020 Endometriosis 01/14/2018 Non-intractable vomiting with nausea 01/12/2018 Assessment & Plan (01/13/2018 4:20 PM EDT): 01/12/2018 Patient with a chronic history of nausea/vomiting associated with abdominal pain for the last 1-1/2 years. She states this occurs almost monthly and last about 4-5 days and occurs towards the end of her period. She describes a nervelike pain which starts at the rectum shoots up to her abdomen and then goes up to her head. She has had multiple hospital visits to [facility] and [place]. Records from OSH: EGD 11/15/17 normal; CT A/P 11/12/17 showed pericholcystic fluid; RUQ u/s 11/12/17 showed acalculous cholecystitis; HIDA scan 11/13/17 negative; Labs unremarkable except for hypokalemia. LFTs and lipase negative. No leukocytosis. Negative hCG. RUQ showed nephrolithiasis, measuring 3 mm, at the midpole of the right kidney and mild hydronephrosis. Tranvaginal u/s showed enlargement and heterogeneity of the endometrial pattern raising suspicion for adenomyosis. If symptoms persist, then further evaluation with MRI should be considered. -Zofran as needed -Stop Dilaudid 1 mg IV every 3 as needed -Start oxycodone 5-10mg q4 PRN -CT A/P with contrast to evaluate nephrolithiasis -NS 100/hrx2L Anxiety 01/12/2018 Assessment & Plan (01/13/2018 4:24 PM EDT): 01/12/2018 Patient with a history of anxiety and citalopram 40 mg daily. Per patient, she does not respond well to benzodiazepines and has rebound panic attacks. -Continue medication -Trazodone 100 mg nightly as needed insomnia -Ambien 5 mg if needed -Try to avoid benzodiazepines -[facility] consulted Multiple sclerosis, relapsing-remitting 09/16/19 18 Assessment & Plan (01/13/2018 4:13 PM EDT): 01/12/2018 Patient with a recent diagnosis of multiple sclerosis in July 2017 on ocrelizumab at with her second dose on December 26, 2017. She follows with Dr. Martin from neurology. She admits to increased left-sided upper extremity and lower extremity weakness. Per patient, with high-dose steroids she has altered mental status and hallucinations. Neurology was consulted. She may have a cytokine release syndrome after Ocrevus and a possible dysutonomia triggred by pain created by large BM (opiod induced?). Less likely that she has a new relapse of MS. -Neurology following -Trileptal 300mg TID PRN -Restart gabapentin 100mg TID - Repeat MRIs as oupt before next f/u w dr. Martin. - B12, folic acid, TSH level. -Continued Outpatient follow-up Decreased functional mobility Assessment & Plan (01/13/2018 4:24 PM EDT): 01/12/2018 Patient with decreased functional mobility secondary to multiple sclerosis. -PT recommends DC home with home PT Resolved Problems Problem Noted Date Diagnosed Date Resolved Date Vomiting 01/13/2018 01/14/2018 Nephrolithiasis 01/13/2018 01/14/2018 Assessment & Plan (01/13/2018 4:23 PM EDT): 01/13/2018 Patient found to have 3mm stone on the right kidney with mild hydronephrosis on right upper quadrant ultrasound. -Management as described above Hypokalemia 01/12/2018 01/14/2018 Assessment & Plan (01/12/2018 7:11 PM EDT): 01/12/2018 Replete as needed Encounters Date Type Department Care Team Description 03/19/2025 Telephone [facility] [address] [place] [id number] Jessica Herrera MD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
--- OUTSIDE RECORDS SUMMARY | 2025-03-31 01:56 | XMS_ITS | Encounter Summary ---
Author Organization [facility] Address [address] [place] [address] Care Team Providers Care Nursing Technician Name Role Phone Anmol Garza Primary Care Provider Encounter Details Date Type Department Care Team (Late st Contact Info) Description 01/30/2022 dateIITianst Message [facility] [address] [place] [address] [id number] July Donohue MD [address] [place] [address] [place]? Social History Tobacco Use Types Packs/Day Years [...] on filedocumented in this encounter Care Teams Nursing Technician Relationship Specialty Start Date End Date Anmol Garza [address] [place] [address] [place] [address] PCP - General Family Medicine 04/22/24 documented as of this encounter
--- OUTSIDE RECORDS SUMMARY | 2025-03-31 01:56 | XMS_ITS | Encounter Summary ---
Author Organization [facility] Address [address] [place] [address] Care Team Providers Care School Bus Driver/Teacher Assistant Name Role Phone AspenluisaAnmol mujica Dakotah Primary Care Provider Reason for Visit * Reason Onset Date Comments PAC Appt Request - New 03/05/2024 DUE TO [place] LNESSES, PATIENT IS ASKING FOR NEW TELEHEALTH WITH DR. BENÍTEZ Encounter Details Date Type Department Care Team (Late st Contact Info) Description 03/05/2024 Telephone [facility] [address] [place] [address] [phone] Telephone Intake, Staff PAC Appt Request - New (DUE TO ILLNESSES, PATIENT IS ASKING FOR NEW TELEHEALTH WITH DR. BENÍTEZ) Social History Tobacco Use Types Packs/Day Years [...] encounter Miscellaneous Notes * Telephone Encounter - Alicia Smith - 04/05/2024 3:25 PM EST Patient called again requesting this appointment be changed to telehealth. 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 She is requesting a call this afternoon by 4p if possible to speak about upcoming appointment 04/08/24. She is concerned about her health if she cannot make this appointment. Thank you - PAC * Telephone Encounter - Hannah Almaguer - 03/05/2024 12:01 PM EDT Patient calling - she is scheduled as a New Pt to see Dr. Benítez for arthritis on 04/08/24. She states she has many illnesses and would like a sooner telehealth video appt. Unable to find telehealth appts. For this patient in the DT - sending TE to rheum clinical as patient would like to discuss her illnesses. Patient tel: [phone]. Thank you - PAC documented in this encounter Plan of Treatment Not on file documented as of this encounter Visit Diagnoses Not on filedocumented in this encounter Care Teams School Bus Driver/Teacher Assistant Relationship Specialty Start Date End Date Anmol Garza [address] [place] [phone] PCP - General Family Medicine 04/22/24 documented as of this encounter
--- OUTSIDE RECORDS SUMMARY | 2025-03-31 01:56 | XMS_ITS | Encounter Summary ---
Author Organization [facility] Address [address] [place] [address] Care Team Providers Care Computer Consultant Name Role Phone Anmol Garza Primary Care Provider Reason for Visit * Reason Onset Date Comments Medication Question 04/30/2022 Encounter Details Date Type Department Care Team (Late st Contact Info) Description 04/30/2022 Telephone [facility] Central Scheduling Department [address] [place] [address] Telephone Intake, Staff Medication Question Social History Tobacco Use Types Packs/Day Years [...] encounter Miscellaneous Notes * Telephone Encounter - Sylvester Brink LPN - 04/30/2022 4:12 PM EST Sent patient Zubiet message and she already responded. Will notify clinic when receives and beginstaking Tecfidera * Telephone Encounter - Sylvester Brink LPN - 04/30/2022 4:10 PM EST Spoke with [facility] to clarify Tecfidera, all set * Telephone Encounter - Laura Egan - 04/30/2022 11:16 AM EST Patient is calling to ask what the status is regarding the medication TECFIDERA in the authorization process. She would like to know what the timeline is and if she would have to start taking it right away. PT stated she is getting more papules on her other hand even after stopping the aspirin so it is still continuing. Please reach out to PT with any information and next steps. documented in this encounter Plan of Treatment Not on file documented as of this encounter Visit Diagnoses Not on filedocumented in this encounter Care Teams Computer Consultant Relationship Specialty Start Date End Date Anmol Garza [address] [place] [phone] PCP - General Family Medicine 04/22/24 documented as of this encounter
--- OUTSIDE RECORDS SUMMARY | 2025-03-31 01:56 | XMS_ITS | Encounter Summary ---
Author Organization [facility] Address [address] [place] [address] Care Team Providers Care Cotton Wringer Name Role Phone Anmol Garza Primary Care Provider Reason for Visit * Reason Onset Date Comments Appointment 12/29/2019 Pt looking for e arlier appt. Only fridays late afternoons work Encounter Details Date Type Department Care Team (Late st Contact Info) Description 12/29/2019 Telephone [facility] Central Scheduling Department [address] [place] [address] [phone] Telephone Intake, Staff Appointment (Pt looking for earlier appt. Only fridays late afternoons work) Social History Tobacco Use Types Packs/Day Years [...] encounter Miscellaneous Notes * Telephone Encounter - Adry Ramon - 12/29/2019 2:11 PM EDT Pt called about finding an earlier appt or preferably Friday appt in March in the late afternoon.Pt's relies on for transportation and Friday's work the best. Pt would also like a call from Dr. Martin and see if her infusions could be moved to every 5 months. Please reach out to Pt [phone] documented in this encounter Plan of Treatment Not on file documented as of this encounter Visit Diagnoses Not on filedocumented in this encounter Care Teams Cotton Wringer Relationship Specialty Start Date End Date Anmol Garza [address] [place] [phone] PCP - General Family Medicine 04/22/24 documented as of this encounter
--- OUTSIDE RECORDS SUMMARY | 2025-03-31 01:56 | XMS_ITS | Data Portability ---
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 Plan of Treatment Reminders Order Date Submit Date Provider Last Modified By Organization Details Last Modified Time Details Appointments None recorded. Lab None recorded. Referral genetics referral 2019 020 TROY Kim MD, [address] [facility] , [address], [address], 0 05:38:09 Procedures None recorded. Surgeries None recorded. Imaging None recorded. Medication Orders pyridostig mine bromide 60 mg tablet 2021 022 TROY [id number] [address] [place], [address], 2 14:30:15 nortriptyl ine 10 mg capsule 2019 020 [email or web address] [facility] #[id number], [address] [place], [address], 1 11:41:42 Mestinon 60 mg tablet 2019 020 INTERFACE [id number], [address] [place], [address], 0 22:18:41 Mestinon 60 mg tablet 2019 020 INTERFACE [id number], [address] [place], [address], 0 11:48:46 Patient TargetsNo targets recorded. Patient InstructionsNo instructions recorded. Reason for Referral Genetics Referral for Disord er of connective tissue Referring Physician: Tacos Sin, Neurology, Encounter Date: 09/23/2019 Results Created Date Observation Date Name Description Value Unit Range Abnormal Flag Note LastModifiedBy Organization Detail LastModifiedTime 02/09/20 MRI, cervi prakash spine , w/o contr ast No observ ation record ed. [email or web address] Not Available 2019 11:47:47 02/15/2002/07/2020 MRI, thora cic spine , w/o contr ast No observ ation record ed. [email or web address] Not Available 2019 10:13:58 02/29/2006/14/2018 MRI, brain , w/o contr ast No observ ation record ed. evattes Not Available 2019 12:58:48 Result Notes None recorded. Problems Name Problem SNOMED Code Status Onset Date Resolution Date Notes Provider Name and Address Organization Details Recorded Time Disorder of autonomic nervous system 48985386 Active 2019 TACOS ISN MD [address] [place] [address], [address], [facility] 0 08:54:17 Multiple sclerosis 34877078 Active 2019 TACOS SIN MD [address] [place] [address], [address] 8, [facility] 0 08:54:24 Congenital hip dysplasia 15378625 Active 2019 TACOS SIN MD [address] [place] [address], [address] 8, [facility] 0 08:54:31 Infectious mononucleos is 574063596 Completed 201909/17/2019 TACOS SIN MD [address] [place] [address], [address] 8, [facility] 0 08:54:39 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 Medical Equipment None Reported. Allergies Allergen ID Allergen Name Allergen Category Reaction Reaction Severity Criticality Documentation Date Start Date Code Code System Note Provider Name and Address Organization Details Recorded Time 6248517 wheat gluten extract food vomiting severe Not available 03/21/2022 99203 81 RxNorm Kenji cottrell [facility] 2 14:32:52 048833 Ativan medicatio n Not available Not available Not available 09/17/2019 78381 9 RxNorm TACOS SIN MD [address] [place] [address], [address] 8, [facility] 0 08:57:54 808522 Bactrim medicatio n Not available Not available Not available 09/17/2019 20386 9 RxNorm TACOS SIN MD [address] [place] [address], [address] 8, [facility] 0 08:58:00 701140 Phenergan medicatio n Not available Not available Not available 09/17/2019 64326 8 RxNorm TACOS SIN MD [address] [place] [address], [address] 8, [facility] 0 08:58:05 842270 cephalexi n medicatio n Not available Not available Not available 09/17/2019 2231 RxNorm TACSO SIN MD [address] [place] [address], [address] 8, [facility] 0 08:58:10 180052 erythromy connie medicatio n Not available Not available Not available 09/17/2019 4053 RxNorm TACOS SIN MD [address] [place] [address], [address] 8, [facility] 0 08:58:18 776979 meclizine medicatio n Not available Not available Not available 09/17/2019 6676 RxNorm TACOS SIN MD [address] [place], [address], [facility] 0 08:58:24 077678 methylpre dnisolone medicatio n Not available Not available Not available 09/17/2019 6902 RxNorm TACOS SIN MD [address] [place], [address], [facility] 0 08:58:30 601172 Product containin g penicilli n (product) medicatio n Not available Not available Not available 09/17/2019 32137 8001 SNOMED TACOS SIN MD [address] [place], [address], [facility] 0 08:58:36 Medications Name Sig Start Date Stop Date Status Note LastModified by Organization Details LastModified Time compound drug active Not Available Not Available Not Available cpd-5%dacia/5 %lcd/betaug o/pet APPLY TWICE DAILY TO HANDS UP TO 3 WEEKS PER MONTH active Not Available Not Available No t Available cyclobenzap rine 10 mg tablet 09/22 completed Not Available Not Available Not Available oxcarbazepi ne 150 mg tablet 06/29 completed Not Available Not Available Not Available gabapentin 600 mg tablet TAKE 1 TABLET BY MOUTH 3 TIMES A DAY 03/21 completed Not Available Not Available Not Available doxycycline hyclate 100 mg capsule TAKE 1 CAPSULE BY MOUTH TWICE A DAY FOR 10 DAYS 03/21 completed Not Available Not Available Not Available tizanidine 2 mg tablet TAKE 1 TABLET BY MOUTH EVERY 8 HOURS NEEDED FOR MUSCLE SPASMS. active Not Available Not Available No t Available clindamycin HCl 300 mg capsule 06/29 completed Not Available Not Available Not Available albuterol sulfate 2.5 mg/3 mL (0.083 %) solution for nebulizatio n INHALE 1 VIAL VIA NEBULIZER EVERY 6 HOURS NEEDED FOR WHEEZING active Not Available Not Available No t Available citalopram 40 mg tablet 09/22 completed Not Available Not Available Not Available cetirizine 10 mg tablet TAKE 1 TABLET BY MOUTH EVERY DAY 06/29 completed Not Available Not Available Not Available azithromyci n 250 mg tablet TAKE 2 TABLETS BY MOUTH TODAY, THEN TAKE 1 TABLET DAILY FOR 4 DAYS 03/21 completed Not Available Not Available Not Available Lidocaine Viscous 2 % mucosal solution 09/22 completed Not Available Not Available Not Available tizanidine 4 mg tablet TAKE 1/2 TABLET BY MOUTH EVERY 8 HOURS NEEDED FOR MUSCLE SPASMS active Not Available Not Available No t Available fluconazole 150 mg tablet 03/21 completed Not Available Not Available Not Available valacyclovi r 1 gram tablet TAKE 1 TABLET BY MOUTH 3 TIMES A DAY FOR 7 DAYS 03/21 completed Not Available Not Available Not Available senna 8.6 mg tablet Take 2 tablets every day by oral route. active Not Available Not Available No t Available sucralfate 100 mg/mL oral suspension GIVE 10ML BY MOUTH TWICE A DAY 06/29 completed Not Available Not Available Not Available Compro 25 mg rectal suppository 06/29 completed Not Available Not Available Not Available fluconazole 200 mg tablet 09/22 completed Not Available Not Available Not Available meloxicam 15 mg tablet 03/21 completed Not Available Not Available Not Available sucralfate 1 gram tablet 06/29 completed Not Available Not Available Not Available methylpheni date 5 mg tablet TAKE 1 TABLET BY MOUTH TWICE A DAY active Not Available Not Available No t Available doxycycline hyclate 50 mg capsule TAKE 1 CAPSULE BY MOUTH EVERY 12 HOURS WITH 100MG DOSE 06/29 completed Not Available Not Available Not Available clindamycin HCl 150 mg capsule 09/22 completed Not Available Not Available Not Available oxcarbazepi ne 300 mg tablet TAKE 1 TABLET BY MOUTH THREE TIMES A DAY active Not Available Not Available No t Available sulfacetami de sodium (acne) 10 % lotion (suspension ) APPLY TO AFFECTED AREA TWICE A DAY active Not Available Not Available No t Available triamcinolo ne acetonide 0.1 % topical cream active Not Available Not Available Not Available ondansetron 8 mg disintegrat ing tablet DISOLVE 1 TABLET BY MOUTH EVERY 8 HOURS NEEDED active Not Available Not Available No t Available oxycodone 15 mg tablet 09/22 completed Not Available Not Available Not Available carbidopa 25 mg tablet TAKE 3 TABLETS BY MOUTH 3 TIMES A DAY active Not Available Not Available No t Available hydromorpho ne 2 mg tablet 03/21 completed Not Available Not Available Not Available ziprasidone 20 mg capsule 09/22 completed Not Available Not Available Not Available famotidine 20 mg tablet TAKE 1 TABLET BY MOUTH TWICE A DAY 03/21 completed Not Available Not Available Not Available gabapentin 800 mg tablet 09/22 completed Not Available Not Available Not Available dicyclomine 20 mg tablet 09/22 completed Not Available Not Available Not Available baclofen 10 mg tablet TAKE 2.5 TABLETS (25 MG TOTAL) BY MOUTH 3 TIMES DAILY. active Not Available Not Available No t Available doxycycline monohydrate 100 mg capsule 03/21 completed Not Available Not Available Not Available nortriptyli ne 10 mg capsule TAKE 2 CAPSULES BY MOUTH AT BEDTIME 06/29 completed Not Available Not Available Not Available Gentle Laxative (bisacodyl) 5 mg tablet,edgar yed release 09/22 completed Not Available Not Available Not Available pyridostigm ine bromide 60 mg tablet TAKE 1 tab A TABLET 3 TIMES A DAY BY MOUTH 2021 active Not Available Not Available Not Avai lable oxycodone 5 mg capsule 1 tab every four hours 06/29 completed Not Available Not Available Not Available nicotine 21 mg/24 hr daily transdermal patch 09/22 completed Not Available Not Available Not Available ibuprofen 200 mg tablet TAKE 2 TABLETS BY MOUTH EVERY 4 HOURS NEEDED FOR FEVER active Not Available Not Available No t Available gabapentin 300 mg capsule TAKE 3 CAPSULES BY MOUTH 3 TIMES A DAY active Not Available Not Available No t Available codeine 10 mg-guaifene sin 100 mg/5 mL oral liquid TAKE 7.5 ML BY MOUTH EVERY EVENING AT BEDTIME NEEDED FOR COUGH. 06/29 completed Not Available Not Available Not Available mupirocin 2 % topical ointment APPLY THREE TIMES DAILY FOR 5 DAYS UNTIL HEALED active Not Available Not Available No t Available gabapentin 100 mg capsule 06/29 completed Not Available Not Available Not Available ibuprofen 600 mg tablet active Not Available Not Available Not Available methylpheni date ER 18 mg tablet,exte nded release 24 hr TAKE 1 TABLET EVERY DAY BY ORAL ROUTE IN THE MORNING. active Not Available Not Available No t Available fludrocorti sone 0.1 mg tablet 06/29 completed Not Available Not Available Not Available doxycycline hyclate 100 mg tablet 09/22 completed Not Available Not Available Not Available diazepam 5 mg tablet as needed 10/23 completed Not Available Not Available Not Available metoclopram keon 10 mg tablet 09/22 completed Not Available Not Available Not Available oxycodone 5 mg tablet TAKE 2 TABLETS BY MOUTH EVERY 6 HOURS NEEDED FOR PAIN active Not Available Not Available No t Available modafinil 100 mg tablet daily and can repeat in the afternoon 09/25 completed Not Available Not Available Not Available Denta 5000 Plus 1.1 % cream 09/22 completed Not Available Not Available Not Available cinacalcet 30 mg tablet 03/21 completed Not Available Not Available Not Available nitrofurant oin monohydrate /macrocryst als 100 mg capsule 09/22 completed Not Available Not Available Not Available duloxetine 30 mg capsule,del ayed release 06/29 completed Not Available Not Available Not Available duloxetine 60 mg capsule,del ayed release TAKE 1 CAPSULE BY MOUTH EVERY DAY active Not Available Not Available No t Available fentanyl 12 mcg/hr transdermal patch 06/29 completed Not Available Not Available Not Available chlorhexidi ne gluconate 0.12 % mouthwash 09/22 completed Not Available Not Available Not Available Zofran 8 mg as needed active Not Available Not Available No t Available aspirin 650mg twice a day active Not Available Not Available No t Available Compazine 09/22 completed Not Available Not Available Not Available Colace twice a day in the am active Not Available Not Available No t Available Benadryl as needed active Not Available Not A vailable Not Available Vitamin D3 2000mg daily active Not Available Not Available No t Available ProAir HFA 90 mcg/actuati on aerosol inhaler TAKE 2 PUFFS EVERY 6 HOURS NEEDED FOR WHEEZING FOR 30 DAYS active Not Available Not Available No t Available lidocaine-h ydrocortiso ne-aloe vera 2.8 %-0.55 % rectal gel 03/21 completed Not Available Not Available Not Available quetiapine 50 mg tablet 09/22 completed Not Available Not Available Not Available levocetiriz ine 5 mg tablet Take 2 tablets twice a day by oral route. active Not Available Not Available No t Available doxycycline hyclate 150 mg tablet,edgar yed release TAKE 1 TABLET BY MOUTH TWICE A DAY 06/29 completed Not Available Not Available Not Available armodafinil 50 mg tablet 03/21 completed Not Available Not Available Not Available GaviLyte-N 420 gram oral solution 09/22 completed Not Available Not Available Not Available PreviDent 5000 Enamel Protect 1.1 %-5 % dental paste active Not Available Not Available Not Available Spiriva Respimat 2.5 mcg/actuati on solution for inhalation INHALE 2 PUFFS DAILY active Not Available Not Available No t Available OxyContin 10 mg tablet,jac h resistant,e xtended release TAKE 1 TABLET BY MOUTH EVERY 12 HOURS *05/29* 03/21 completed Not Available Not Available Not Available Xtampza ER 9 mg capsule sprinkle active Not Available Not Available Not Available Ocrevus 30 mg/mL intravenous solution Inject by intraveno us route. active Not Available Not Available No t Available Baxdela 450 mg tablet 09/22 completed Not Available Not Available Not Available Slynd 4 mg (28) tablet TAKE 1 TABLET BY MOUTH EVERY DAY active Not Available Not Available No t Available Vitals Date Recorded Body height Body mass index (BMI) Body weight Heart rate Heart rate Systolic And Diastolic Systolic And Diastolic Provider Name and Address Organization Details Last Updated DateTime 0 167.64 cm 25 kg/m2 64586.8 2 g 93 /min 93 /min 127/86 mm[Hg] 119/85 mm[Hg] [place] [facility] 0 17:06:18 Social History Question Answer Notes LastModified by Organizat ion Details LastModified Time Tobacco Smoking Status Current Every Day Smoker cigrarettes and MJ [place] null, [facility] 10/19/2019 16:05:02 How Much Tobacco Do You Smoke? 0.25 PPD Information not available 10/19/2019 Sex: Unknown Functional Status Question Answer Note LastModified by Organizat ion Details LastModified Time Do you or have you ever used smokeless tobacco? Former smokeless tobacco user Information not available 10/19/2019 Do you or have you ever used e-cigarettes or vape? Former user of electronic cigarettes Information not available 10/19/2019 Mental Status None recorded. Family History Nothing Reported. Medical History Condition Response KIDNEY DISEASE Gynecological HistoryNo gynecological history recorded. Obstetrics History GPAL:G 0 P 0 0 0 0 Past Encounters Encounter ID Performer Location Encounter Start Date Encounter Closed Date Diagnosis/Indication Diagnosis SNOMED-CT Code Diagnosis ICD10 Code Diagnosis IMO Codes Diagnosis Note [id number] MD CHRISTY [facility] [address] [place] [address] 09/16/2019 14:35:04 09/16/2019 15:11:16 Multiple sclerosis 36628451 G35 This is a 38 yo female with relapsing and remitting MS on Ocrevus and followed by Dr. Rogers at [facility] with a stable course who presents with severe autonomic difficulti es. Autonomic symptoms with BP/HR dysfunctio n, GI difficulit es most prominentl y. Instructed her on a monitoring and conservati ve management plan. She will continue her current MS regimen. Disorder o f autonomic nervous system 51038539 G90.9 This is a 38 yo female with relapsing and remitting MS who presents with severe autonomic difficulti es. Autonomic symptoms with BP/HR dysfunctio n, GI difficulit es most prominentl y. Instructed her on a monitoring and conservati ve management plan. Recommend: -Orthostat ic BP monitoring in the am for one week and report back- Hydration goal of 100 oz , 1/2 electrolyt es- Compressio n stockings on when OOB- Zensahs-Di etary modificati on: No gluten or lactose, and no fruits or veggiesFoc us on soups, stews and smoothies to reduce chance of cyclic vomiting-W ill also need CT abdomen and pelvis-Tel ehelath followup in one month This visit was conducted using two-way, real-time telehealth video conference . The patient was in her home. Physician, Dr. Sin was located at [facility]. Instructio ns were reviewed with the patient and verbal consent was obtained. I informed the patient that she can see me in person if needed. She is of moderate risk. Greater than 50% of the 60 min spent on this encounter was spent discussing MS and autonomic dysfunctio n and coordinati ng care. [id number] MD CHRISTY [facility]ELIZ[facility] [address] [place] [address] 09/23/2019 09:22:08 09/23/2019 10:37:18 Multiple sclerosis 60184905 G35 This is a 38 yo female with relapsing and remitting MS on Ocrevus and followed by Dr. Rogers at [facility] with a stable course who presents with severe autonomic difficulti es. Autonomic symptoms with BP/HR dysfunctio n, GI difficulit es most prominentl y. Instructed her on a monitoring and conservati ve management plan. She will continue her current MS regimen. Disorder o f autonomic nervous system 51582599 G90.9 This is a 38 yo female with relapsing and remitting MS who presents with severe autonomic difficulti es. Autonomic symptoms with BP/HR dysfunctio n, GI difficulit es most prominentl y with cyclic vomiting. Instructed her on a monitoring and conservati ve management plan. Recommend: -Orthostat ic BP monitoring in the am for one week and report back- Hydration goal of 100 oz , 1/2 electrolyt es- Compressio n stockings on when OOB- Zensahs-Di etary modificati on: No gluten or lactose, and no fruits or veggiesFoc us on soups, stews and smoothies to reduce chance of cyclic vomiting-M estinon initiation at 1/2 table tin the am and report back with one hour post mestinon vitals in one week with plan to increase to optimize BP/HR.-Exe rcise bike-Teleh ealth followup in one month- Mouth guard- Dislocatin g joints- kids being tested for EDS we will place consult for genetic testing for her This visit was conducted using two-way, real-time telehealth video conference . The patient was in her home. Physician, Dr. Sin was located at [facility]. Instructio ns were reviewed with the patient and verbal consent was obtained. I informed the patient that she can see me in person if needed. She is of moderate risk. Greater than 50% of the 45 min spent on this encounter was spent discussing MS and autonomic dysfunctio n and coordinati ng care. Vasovagal syncope 501010 005 R55 The patient had a severe vasovagal event this week that was prolonged and required an ED visit. 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 We will send her for genetic testing with Dr. Kim. [id number] TACOS SIN MD [facility] [address] [place] [address] 10/19/2019 15:24:04 10/20/2019 09:56:10 Disorder of autonomic nervous system 84193758 G90.9 This is a 38 yo female with relapsing and remitting MS who presents with severe autonomic difficulti es. Autonomic symptoms with BP/HR dysfunctio n, GI difficulit es most prominentl y with cyclic vomiting. Instructed her on a monitoring and conservati ve management plan. Recommend: -Continue with Orthostati c BP monitoring - Hydration goal of 100 oz , half with electrolyt es-Miguel baltazar stockings on when OOB -Continue to work on diet modificati ons including No gluten or lactose, and no fruits or veggies Focus on soups, stews and smoothies. -Increase Mestinon 60 mg from 1/2 tablets twice daily to one tablet twice daily. -Continue to increase exercise on bike as tolerated. - Obtain Mouth guard - Dislocatin g joints- kids being tested for EDS we will place consult for genetic testing for her-Reduce CBD to help with spelling and word finding difficulit es This visit was conducted using two-way, real-time telehealth video conference . The patient was in her home. Physician, Dr. Sin was located at [facility]. Instructio ns were reviewed with the patient and verbal consent was obtained. I informed the patient that she can see me in person if needed. She is of moderate risk. Greater than 50% of the 45 min spent on this encounter was spent discussing MS and autonomic dysfunctio n and coordinati ng care. [id number] TACOS SIN MD [facility] [address] [place] [address] 11/02/2019 10:11:07 11/02/2019 12:46:57 Disorder of autonomic nervous system 84633088 G90.9 This is a 39 yo female with relapsing and remitting MS who presents with severe autonomic difficulti es. Autonomic symptoms with BP/HR dysfunctio n improved slightly on the mestinon, GI difficulit es most prominentl y with cyclic vomiting. Instructed her on a monitoring and conservati ve management plan. Had an episode of migraine and cyclic vomiting last . She has not had it since then. She had antiemetic s and pain medication . She felt a bit better by Friday, Recommend: -Continue with Orthostati c BP monitoring - Hydration goal of 100 oz , half with electrolyt es-Miguel baltazar stockings on when OOB -Continue to work on diet modificati ons including No gluten or lactose, and no fruits or veggies Focus on soups, stews and smoothies. -Continue Mestinon 60 mg one tablet twice daily.- Obtain Mouth guard - Dislocatin g joints- kids being tested for EDS we will place consult for genetic testing for her-Reduce CBD to help with spelling and word finding difficulit es-Increas e nortriptyl ine 20 mg at bedtime This visit was conducted using two-way, real-time telehealth video conference . The patient was in her home. Physician, Dr. Sin was located at [facility]. Instructio ns were reviewed with the patient and verbal consent was obtained. I informed the patient that she can see me in person if needed. She is of moderate risk. Greater than 50% of the 45 min spent on this encounter was spent discussing MS and autonomic dysfunctio n and coordinati ng care. Migraine [id number] G43.90 9 Had an episode of migraine and cyclic vomiting last . She has not had it since then. She had antiemetic s and pain medication . She felt a bit better by Friday, [id number] TACOS SIN MD [facility] [address] [place] [address] 06/29/2020 10:46:16 06/29/2020 12:41:49 Multiple sclerosis 52468203 G35 This is a 38 yo female with relapsing and remitting MS on Ocrevus and followed by Dr. Rogers at [facility] with a stable course who presents with severe autonomic difficulti es. Autonomic symptoms with BP/HR dysfunctio n, GI difficulit es most prominentl y. Instructed her on a monitoring and conservati ve management plan. She will continue her current MS regimen. Migraine [id number] G43.90 9 Had an episode of migraine and cyclic vomiting last . She has not had it since then. She had antiemetic s and pain medication . She felt a bit better by Friday, Disorder o f autonomic nervous system 81943154 G90.9 This is a 39 yo female with relapsing and remitting MS who presents with severe autonomic difficulti es. Autonomic symptoms with BP/HR dysfunctio n improved slightly on the mestinon, GI difficulit es most prominentl y with cyclic vomiting. Instructed her on a monitoring and conservati ve management plan. Advised her to start diazepam when she has back pain to prevent the onset of the cyclic vomiting. MRI brain and spine: 06/2018: Multiple foci of signal abnormalit y in the white matter, consistent with history of MS. There are at least 3 new lesions. Several previously enhancing lesions have decreased in size. There is a focus of signal abnormalit y in the right lateral cord at C7-T1, consistent with history of MS. 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 Recommend: -Continue with Orthostati c BP monitoring - Hydration goal of 100 oz , half with electrolyt es- Compressio n stockings on when OOB - Continue to work on diet modificati ons including No gluten or lactose, and no fruits or veggies Focus on soups, stews and smoothies. - Continue Mestinon 60 mg 06/02.5- Obtain Mouth guard - Dislocatin g joints- kids being tested for EDS we will place consult for genetic testing for her- Reduce CBD to help with spelling and word finding difficulit es- Start diazepam when she has back pain to prevent the cyclic vomiting- Contact MS specialist to obtain new MRI scans This visit was conducted using two-way, real-time telehealth video conference . The patient was in her home. Physician, Dr. Sin was located at [facility]. Instructio ns were reviewed with the patient and verbal consent was obtained. I informed the patient that she can see me in person if needed. She is of moderate risk. Greater than 50% of the 45 min spent on this encounter was spent discussing MS and autonomic dysfunctio n and coordinati ng care. [id number] TACOS SIN MD [email or web address] [address] [place] [phone] 03/21/2022 13:25:47 03/21/2022 14:49:31 Disorder of autonomic nervous system [id number] G90.9 This is a 41 yo female with relapsing and remitting MS who presents with severe autonomic difficulti es. Autonomic symptoms including temperatur e dysregulat ion and episodes of intractabl e vomiting. She has been off of her MS medication as well her pyridostig mine for months, both of which would help in reducing her dysautonom ic symptoms, her more recent autoimmune related skin problems, and other MS symptoms. - Restart MS medication with Dr. Rogers - Restart pyridostig mine 0.5 tablet 3x/day 1week, then 1 tablet 3x/day for 3weeks, then contact office about symptoms for final dose titration This visit was conducted using two-way, real-time telehealth phone conference as video was not available. The patient was in her home. Physician, Dr. Sin was located at [facility]. Instructio ns were reviewed with the patient and verbal consent was obtained. I informed the patient that she can see me in person if needed. She is of moderate risk. Greater than 50% of this 30 min was spent discussing autonomic dysfunctio n and coordinati ng care. Health Concerns Section Related Observation LastModified by Organization Detai ls LastModified Time None Recorded Concern Status LastModified by Organization Details LastModified Time None Recorded Advance Directives Directive None Recorded Payers Insurance Date Sequence Insurance Name Policy Number Policy Summers Covered Member ID Summers Member ID Guarantor Name 03/19/2022 2 [place] [facility] Roxanne Parker [id number] Roxanne Parker 03/19/2022 1 [place] [facility] [id number] Jose Parker [id number] Roxanne Parker Notes Date Note Type Note Provider Name and Address Organization Details Recorded Time 09/23/2019 text/html This is a pleasant 38 yo female with a diagnosis of MS who is seen in followup after a syncopal even in the setting of a hand injury. She has a history of underlying autonomic difficulites. The patient reports that she has episodes of cyclical vomiting that occur several times a month and can last for up to 7 days. Making breakfast on Friday had a hand injury and then a vasovagal event with some confusion. She was near fainting. He put her in the shower and woke her up and then he called an ambulance. She had her hand glued in the ED. She has this when she vomiting episodes. BP improved to 113/7 and pulse increase to 86. 133/95, 100, 128/88, 104- BP looks good HR is high. TACOS SIN MD [address] [place] [address], [phone], [facility] 09/23/2019 11:50:03 10/19/2019 text/html This is a 38 yo female with relapsing and remitting MS who presents in follow up with severe autonomic difficulties. History of Autonomic symptoms with BP/HR dysfunction, GI difficulties most prominently with cyclic vomiting. Patient was started on Mestinon 60 mg half tablet twice daily with less episodes if dizziness and one one episode of vomiting. Wearing compression stocking daily with improvement with blood pressures and less episodes of feeling cold. Sleeping between 8-9 hour nightly. Working towards life style changes including diet, obtain tricycle bicycle for exercise.Reports some difficulty swallowing. Having problems with spelling and word finding. Never had Neuropsycological testing. TACOS SIN MD [address] [place] [address], [phone], [facility] 10/19/2019 22:20:49 11/02/2019 text/html This is a 39 yo female with relapsing and remitting MS who presents in follow up with severe autonomic difficulties. Overall she had been doing well on the mestinon and on the nortriptyline. She missed her dose of nortriptyline on Fri. am she had severe nause and vomiting and was seen in the ED and received IV fluids and pain meds. TACOS SIN MD [address] [place] [address], [phone], [facility] 11/02/2019 11:39:42 06/29/2020 text/html This is a 39 yo female with relapsing and remitting MS who presents in follow up with severe autonomic difficulties. She has been on mestinon with marked control of her BP and HR. She was not able to tolerate the nortriptyline. She has had episodes of cyclic vomiting. She reports that prior to the vomiting episodes she has pain in her spine and then moves to the back of the head. Thereafter she has continuous vomiting. Most recently she had EMS come to her house who provided her with IV fluids. She is still recovering. TACOS SIN MD [address] [place] [address], [phone], [facility] 07/03/2020 10:05:58 03/21/2022 text/html She reports that since her last visit her biggest concerns today include her insomnia, her fear of recurrent brainstem lesions since stopping her disease-modifying therapy, and her overheating and shortness of breath with activity. Her insomnia lasts until 4 in the morning and is daily. She reports that another neurologist has stopped her pyridostigmine and she has also stopped her ocrelizumab(since ) and she has had increased dysautonomic symptoms with her temperature, blood pressure, and heart rate spikes. She endorses concern over having to remind her self to breathe and new shortness of breath with speaking. She would like to restart her MS therapy, but has developed a pustular rash, dyshidrotic eczema, on her hands that has precluded her from treatment. Her night sweats have been resolved with CPAP when she is able to wear it since being diagnosed with ROSALES. She is nervous to sleep or take sedatives for her insomnia as she fears she will forget to breathe. Her vomiting has continued 2-3x per week. She endorses concern over developing long COVID since being diagnosed with COVID in November and having not regained her sense of smell and plans to go to a long COVID center in [place]. Reports that one child has been found to have the HLA-B27 gene and two of her three children have Ehler-Danlos Syndrome and that she cannot afford testing with her insurance. TACOS SIN MD [address] [place] [address], [phone], [facility] 03/21/2022 21:42:17 OBGyn Episode No OBEpisode recorded.
--- OUTSIDE RECORDS SUMMARY | 2025-03-31 01:56 | XMS_ITS | Data Portability ---
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 Denies chest pain, shortness breath, cough, abdominal pain, vomiting. States has been trying to drink water and Pedialyte but does note that it makes her somewhat nauseous for which she is using Zofran. Believes this is worsening of her FMS and thinks she needs fluids although did receive a liter 4 days ago. Exam: Afebrile female, somewhat comfortable appearing presenting in her living room seated on her couch. Heart sounds regular, lungs clear to auscultation. Oral mucosa moist. Dipstick urinalysis positive for protein and blood otherwise negative. DDx considered, but not limited to: Consider viral infection although patient is without cough or abdominal symptoms to suggest what type of virus could be present. Consider urinary tract infection although urine was only positive for protein and blood, will obtain culture. Consider secondary to a mass although patient does not appear clinically dehydrated at this time. Work up/Results: Dipstick urinalysis positive for protein and blood otherwise negative. Plan/Discussion: Discussed with patient she does not appear to be clinically dehydrated, vital center within normal limits, no ketones in the urine, Oral mucosa moist and advise at this time, will not be giving any IV fluids. Patient encouraged to push oral fluids, take Zofran as previously prescribed if necessary and try to eat regularly. Dipstick urinalysis negative for infection however given chills and sweats, will send for culture to rule out UTI. Patient instructed to call if symptoms worsen or do not improve; patient acknowledges understands and agrees with plan. Note created with voice recognition software and may contain grammatical errors due to this. Patients PCP contacted and updated on patient status. Patient verbalized understanding of discharge instructions and when to follow up with PCP/911/ED as needed. Patient in agreement with current plan and treatment. In order to obtain further information and compare any laboratory results/values, I have accessed old patient records. This information was pertinent in my medical decision making today. Time On Scene with Patient: 00:11:38 [email or web address] Not available 07/07/2019 16:57:41 07/12/2019 07/12/2019 Time On Scene with Patient: 00:47:03 DDX: gastritis, dehydration, SBO Pt has recurrent nausea and vomiting - ongoing since Jul. Review of labs, urine from visit and [facility] ED visit - no red flags. Pt appears clinically stable with no signs of dehydration. Will defer IV fluids but ODT zofran given and IM toradol for achiness. RX for compazine suppositories sent to pharmacy - pt has taken before in PO form and tolerated well - (despite phenergan allergy) Pt was encouraged to FU with PCP as she has a positive relationship with him. Reasons to call 911 /seek re-evaluation reviewed with patient and sig other of patient. Not available 07/12/2019 13:53:42 06/26/2020 06/26/2020 Overview/History: 39yoF well knwon to new to this provider pmhx peptic ulcers, nausea and vomiting and MS with spinal lesions. Patient is seen today for 12 hours of nausea and vomiting. No fever. Abdominal pain only when vomiting. Patient tried compazine suppository last night without any relief. Patient has had a tubal ligation in the past and surgery for endometriosis. Patient denies any urinary complaints, diarrhea, hematochezia, or melena. Patient has been unable to tolerate her prescribed narcotics for her chronic back paikn due to the vomiting. Exam: VSS patient non toxic appearing but difficulty to calm down heart and lung sounds clear normal bowel sounds, abdomen soft and non tender emesis in a beg amaro on the bed with orange pedialyte. No blood in vomit no LE edema noted DDx considered, but not limited to: gastroenteritis intra abdominal process-doubt as no pain on exam -doubt as patient has had a tubal ligation UTI-doubt as no urinary complaints bleeding ulcer-doubt as no hematochezia or melena and VSS Work up/Results: IV fluids and IV zofran given Patient was then able to tolerate her previously prescribed pain medication for her back Plan/Discussion: Patient is hemodynamically stable non toxic appearing seen for 2 days of nausea and vomiting. Patient has been seen for this in the past. Nausea and vomiting have only been ongoing for approx 12 hours, doubt electrolyte abnormality at this time. Patient hysterical on scene. IV fluids and Zofran tolerated well. Patient was also then able to tolerate her chronic pain medication for her back. Patient has suppository compazine which she has tolerated in the past. Strict precautions given that if the patient develops a fever, abdominal pain, or continued nausea and vomiting she should be further evaluated in the ER. Patient verbalized understanding and was agreeable with overall plan. In order to obtain further information and compare any laboratory results/values, I have accessed . This information was pertinent in my medical decision making today. Time On Scene with Patient: 00:49:29 [email or web address] Not available 06/26/2020 12:17:01 06/27/2020 06/27/2020 Overview/History : 39yo female who is known to but new to this provider with a PMHx of MS, spinal cord lesion, hip dysplasia, endometriosis and recurrent autonomic crisis. She reports she had her menses last week, no change of s/p tubal ligation. She reports nausea and vomitting x 2-3 days, brought on by stress of friend dying from a stroke last week. Her last BM 4 days ago. She has been taking Colace. Denies any abdominal pain, fevers or diarrhea. She was seen by yesterday and given IVF for dehydration. She reports she continued to vomit through the night. She has been attempting sips of pedialyte. Exam: Pt is alert, dehydrated appearing laying in bed Dry mucous membranes Normal heart sounds, no edema Lungs are clear, no rales, rhonchi or wheezing Abd soft/round +BS, nontender, no masses No rashes DDx considered, but not limited to: Gastroenteritis- possible Acute intra abdominal process- unlikely, however no pain on exam -unlikely as patient has had a tubal ligation, LMP last week UTI-unlikely, no urinary complaints Dehydration/metabo lic derangement- likely Hypokalemia- K+ 3.4 Ulcer- considered, less likely no hematochezia or melena Back pain- r/t vomiting, hemodynamically stable Headache- likely related to dehydration, stroke considered, no focal deficits Work up/Results: IVF bolus- dehydration IV Zofan- nausea IV Toradol- back pain KCl replacement- K+ 3.4 Plan/Discussion: Discussed with patient her K+ is low today at 3.4- 40mEq administered, pt able to take with crackers after receiving IVF 1L NS and IV Zofran. Toradol 15mg IV given for back pain and persistent headache. Advised to take a dose of Miralax to stimulate bowels as constipation could be adding to her nausea. Discussed with patient if she should become unable to tolerate PO's, develops chest or abdominal pain she should go to ED for continuous IVF and evaluation. Her mom was also present for visit and in agreement with plan. The patient is advised to make an appt with PCP in 3-5 days to discuss ongoing symptoms/ further management as needed. The patient is also advised to go to the ED immediately for any worsening symptoms. The patient understood and agreed with this plan. The patient was given discharge instructions and all questions were answered prior to DH team departure. In order to obtain further information and compare any laboratory results/values, I have accessed patient records on the [employer]. This information was pertinent in my medical decision making today. Proper Personal Protective Equipment (PPE), including gloves, eye protection and masks were donned and doffed appropriately and all equipment cleaned using approved technique with germicidal disposable wipes prior to and after care of this patient according to [facility]'s infection prevention protocols. Time On Scene with Patient: 01:13:41 [email or web address] Not available 06/27/2020 14:47:39 07/09/2020 07/09/2020 Overview/History : Patient is a 39 year old alert female who presents for asymptomatic Covid testing due to daughters inpatient urinary procedure 07/12/2020. Exam: Patient alert. HRR, S1, S2. LSCTA bilaterally, no work of breathing. Speaking in full sentences. Abdomen SNT, + bowel sounds x 4 quadrants. No CVA tenderness, no suprapubic tenderness. DDx considered, but not limited to: Covid unlikely, no exposure Work up/Results: covid swab obtained Plan/Discussion: Report Covid results to patient/attach PCP. Proper Personal Protective Equipment (PPE), including gloves, eye protection, N95 mask, gown, and shoe covers were donned and doffed appropriately and all equipment cleaned using approved technique with germicidal disposable wipes prior to and after care of this patient according to [facility]'s infection prevention protocols. In order to obtain further information and compare any laboratory results/values, I have accessed old patient records. This information was pertinent in my medical decision making today. Time On Scene with Patient: 01:26:20 Not available 07/09/2020 16:30:22 Plan of Treatment Reminders Order Date Submit Date Provider Last Modified By Organization Details Last Modified Time Details Appointments None recorded. Lab SARS CoV 2 RNA (COVID-19) , QL, environmental management specialist-PCR, respirator y specimen 2020 021 [facility] (Centralized Electronic Ordering - All Locations), Patient Can Go To The Location Of Their Choice, [id number] 1 18:04:10 BMP + ionized calcium, serum or plasma 2020 021 [facility], [address] [place], [address], 1 12:20:32 urinalysis , dipstick [address] [facility], [address] [place], [address], 0 16:36:02 culture, urine 2019 020 [facility] (Centralized Electronic Ordering - All Locations), Patient Can Go To The Location Of Their Choice, [id number] 0 17:47:44 Referral None recorded. Procedures None recorded. Surgeries None recorded. Imaging None recorded. Medication Orders ondansetro n HCl 2 mg/mL intravenou s solution [id number], [address] [place], [address], 1 14:12:21 potassium chloride ER 10 mEq tablet,ext ended release [id number], [address] [place], [address], 1 14:16:19 sodium chloride 0.9 % intravenou s solution [id number], [address] [place], [address], 1 14:12:20 sodium chloride 0.9 % intravenou s solution 2020 021 [email or web address] Not available 1 14:11:59 ondansetro n HCl (PF) 4 mg/2 mL injection syringe 2020 021 [email or web address] Not available 1 14:11:59 Compazine 25 mg rectal suppositor y 2019 020 [id number], [address] [place], [address], 0 13:28:09 ketorolac 30 mg/mL (1 mL) injection solution 2019 020 [email or web address] [facility] #[id number], [address] [place], [address], 0 13:34:57 Patient TargetsNo targets recorded. Patient Instructions Encounter Date Encounter Id Patient Instructions Last Modified By Organization Details Last Modified Time 07/12/2019 [id number] [facility] came to your home to evaluate you for nausea and vomiting. You were seen on Jul at the ED. Your labs there were unremarkable. The urine we tested for infection on Jul was unremarkable. We talked about treatment plans for you. We gave you zofran for your nausea here. We called the pharmacy and sent a prescription for compazine SUPPOSITORY for you to take Here is the plan for you. 1. Space out the medications you take so you are not taking so many pills at once. 2. Take the zofran under the tongue as soon as you wake up or AND you can take compazine RECTALLY to help keep the nausea down. 3. Take small amounts of fluids every 15 minutes - 4. Follow up with your PCP as he is the one you trust the most. Discuss with your PCP this plan - If you feel this is not working or you are unable to keep anything down, you may have to go to the emergency department as you will need more medications. Thank you for your visit with [facility] today. We cannot always find the exact cause of your symptoms during your initial visit. Please follow up with your primary care provider or specialist to be rechecked or seek medical attention if your symptoms do not go away or get worse. If you develop any new or worsening symptoms and need after hours care, please go to nearest ER and/or call 911. If you have additional concerns or develop a change in your condition between 8am-10pm, please call [facility] at [phone] to help navigate your care. Not available 07/12/2019 13:33:19 06/27/2020 [id number] You were medicat ed with Zofran 4mg IV for nausea today- your Potassium level was 3.4- we will prescribe KCl 40mEq today- to be taken with food. We have given you 1L IVF for dehydration. We have also given you Toradol 15mg IV x 1 for back pain. If you become unable to tolerate liquids you may need to go to the ED for continuous IV fluids. Acute Nausea and Vomiting/Diarrhea BASIC INFORMATION Acute nausea and vomiting often start suddenly, worsen quickly, and last a few hours to 24 hours. Nausea and vomiting most often occur together, although they can occur alone. Cases of acute nausea and vomiting are often from gastrointestinal viruses such as norovirus, rotavirus and influenza. Less often it can be caused by toxins released from food that g oes bad as well as some types of bacteria and parasites. Diarrhea can also occur. Your nurse practitioner will conduct a careful history to help determine if you have one of the more serious causes. The cause of your nausea and vomiting may be unknown. INSTRUCTIONS Medicines: 1) Anti-nausea: You may have been given a prescription for an anti nausea medicine such as Zofran, Phenergan or Compazine. These can be used every 6-8 hours to help prevent nausea and vomiting. They can make you sleepy, so do not drive after taking them. Be sure to read all of the drug information from the pharmacy. 2) Tylenol: Low grade fever is common with acute nausea and vomiting. You may use Tylenol, per the recommended dosing on the label, to help control fever. If you have liver disease, do not use Tylenol. Ask your [employer] how to address fever if you are concerned about Tylenol use. 3) Anti-diarrheal medicines: These are available [id number], but in some cases are not recommended and can even worsen some cases of intestinal problems. Ask your [employer] if you should use them. In children under 12, the only anti-diarrheal that should be considered is Kaopectate. Diet: 1) For the next 12-24 hours, take clear liquids only. No dairy and no caffeinated beverages. After you have not vomited for a complete hour (either with or without the help of the anti-nausea medicine), begin by taking one tablespoon of clear liquid every 15 minutes for one hour. If you are able to tolerate this, you may increase the amount to 2 tablespoons every hour for the next 2 hours. 2) Clear liquids such as gatorade, pedialyte or broth are recommended because of the electrolytes and sugars that will help replenish the losses from vomiting and diarrhea. 3) If you are able to tolerate clear liquids as instructed above, you may begin to take a bland diet. Plain pasta/noodles or toast are suggestions. If you have had diarrhea, bananas, rice and applesauce are suggested as these can help make the stools more solid. Avoid greasy, fatty or fried foods FOLLOW UP You should make an appointment to see your primary care provider within 24 hours or sooner for worsening condition as described below. If you do not have a primary care doctor, you should follow up with one of the PCP suggestions from [facility]. SEEK CARE IMMEDIATELY IF: 1) You are still unable to tolerate any oral intake after 24 hours 2) You have blood in your vomit or stool 3) You develop severe abdominal pain that does not go away after an episode of vomiting or diarrhea 4) You have severe dizziness, heart palpitations or are passing out 5) You develop severe muscle cramps or weakness 6) You have not made urine in over 24 hours If you develop any new or worsening symptoms and need after hours care, please go to nearest ER and/or call 911. If you have additional concerns or develop a change in your condition between 8am-10pm, please call [facility] at [phone] to help navigate your care. [email or web address] Not available 06/27/2020 14:12:15 07/09/2020 [id number] You will be advi sed of your COVID-19 results as they become available. A [facility] pipe or steam fitter furnace installer will contact you to let you know the results. We will also communicate the results to your primary care provider if you have one for any follow up needs you may have. Since you do not have symptoms currently, there is no recommendation to self-quarantine. Please continue to wash your hands and practice social distancing as recommended by your local government and public health agencies. If you develop mild symptoms, stay home and isolate yourself. Please continue to monitor the CDC website as the recommendations for length of quarantine change as additional information is released on this virus. Symptoms of Coronavirus What you need to know Anyone can have mild to severe symptoms. Older adults and people who have severe underlying medical conditions like heart or lung disease or diabetes seem to be at higher risk for developing more serious complications from COVID-19 illness. Watch for symptoms People with COVID-19 have had a wide range of symptoms reported ranging from mild symptoms to severe illness. Symptoms may appear 2-14 days after exposure to the virus. People with these symptoms may have COVID-19: Fever or chills Cough Shortness of breath or difficulty breathing Fatigue Muscle or body aches Headache New loss of taste or smell Sore throat Congestion or runny nose Nausea or vomiting Diarrhea This list does not include all possible symptoms. The CDC will continue to update this list as we learn more about COVID-19. When to Seek Emergency Medical Attention Look for emergency warning signs* for COVID-19. If someone is showing any of these signs, seek emergency medical care immediately Trouble breathing Persistent pain or pressure in the chest New confusion Inability to wake or stay awake Bluish lips or face *This list does not include all possible symptoms. Please call your medical provider for any other symptoms that are severe or concerning to you. Call 911 or call ahead to your local emergency facility: Notify the live source operator that you are seeking care for someone who has or may have COVID-19. Not available 07/09/2020 16:20:51 Reason for Referral None Reported. Results Created Date Observation Date Name Description Value Unit Range Abnormal Flag Note LastModifiedBy Organization Detail LastModifiedTime 07/07/19 20 07/07/2019 urina lysis , dipst ick Appearance clear Not Available Spr - [facility] [address] [place], [address], 07/07/2019 16:34:49 07/07/19 20 07/07/2019 urina lysis , dipst ick Color yellow Not Available Spr - Home [address] [place], [address], 07/07/2019 16:34:49 07/07/19 20 07/07/2019 urina lysis , dipst ick Glucose negati ve Not Available Spr - Home [address] [place], [address], 07/07/2019 16:34:49 07/07/19 20 07/07/2019 urina lysis , dipst ick Bilirubin negati ve Not Available Spr - Home [address] [place], [address], 07/07/2019 16:34:49 07/07/19 20 07/07/2019 urina lysis , dipst ick Ketones NEG Not Available Spr - Home [address] [place], [address], 07/07/2019 16:34:49 07/07/19 20 07/07/2019 urina lysis , dipst ick Sp. [place] 1.010 Not Available Spr - Home [address] [place], [address], 07/07/2019 16:34:49 07/07/19 20 07/07/2019 urina lysis , dipst ick Blood + Not Available Spr - Home [address] [place], [address], 07/07/2019 16:34:49 07/07/19 20 07/07/2019 urina lysis , dipst ick pH 6 Not Available Spr - Home [address] [place], [address], 07/07/2019 16:34:49 07/07/19 20 07/07/2019 urina lysis , dipst ick Protein positi ve Not Available Spr - Home [address] [place], [address], 07/07/2019 16:34:49 07/07/19 20 07/07/2019 urina lysis , dipst ick Urobilirubin negati ve Not Available Spr - Home [address] [place], [address], 07/07/2019 16:34:49 07/07/19 20 07/07/2019 urina lysis , dipst ick Nitrites NEG Not Available Spr - [facility] [address] [place], [address], 07/07/2019 16:34:49 07/07/19 20 07/07/2019 urina lysis , dipst ick Leukocytes NEG Not Available Spr - [facility]me [address], [place], [address], 07/07/2019 16:34:49 07/07/19 20 07/08/2019 cultu re, urine specimen description CLEAN CATCH (URINE ) Not Available [facility] (Centralized Electronic Ordering - All Locations) Patient Can Go To The Location Of Their Choice, 07/09/2019 12:41:14 07/07/1907/08/2019 cultu re, urine special requests NONE Not Available [facility] (Centralized Electronic Ordering - All Locations) Patient Can Go To The Location Of Their Choice, 07/09/2019 12:41:14 07/07/1907/09/2019 cultu re, urine culture NO GROWTH Not Available [facility] (Centralized Electronic Ordering - All Locations) Patient Can Go To The Location Of Their Choice, 07/09/2019 12:41:14 07/07/1907/09/2019 cultu re, urine report status FINAL 2019 Not Available [facility] (Centralized Electronic Ordering - All Locations) Patient Can Go To The Location Of Their Choice, [address] 07/09/2019 12:41:14 06/27/19 21 06/27/2020 BMP + ioniz ed calci um, serum or plasm a glu 105 mg/dL 70-105 Not Available [address], [address], 06/27/2020 14:03:38 06/27/19 21 06/27/2020 BMP + ioniz ed calci um, serum or plasm a BUN 14 mg/dL 8-26 Not Available [address], [address], 06/27/2020 14:03:38 06/27/19 21 06/27/2020 BMP + ioniz ed calci um, serum or plasm a crea 0.8 mg/dL 0.6-1. 3 Not Available [address], [address], 06/27/2020 14:03:38 06/27/19 21 06/27/2020 BMP + ioniz ed calci um, serum or plasm a Na 134 mmol/ L 138-14 6 Not Available [address], [address], 06/27/2020 14:03:38 06/27/19 21 06/27/2020 BMP + ioniz ed calci um, serum or plasm a K 3.4 mmol/ L 3.5-4. 9 Not Available [address], [address], 06/27/2020 14:03:38 06/27/19 21 06/27/2020 BMP + ioniz ed calci um, serum or plasm a cL 99 mmol/ L 98-109 Not Available [address], [address], 06/27/2020 14:03:38 06/27/19 21 06/27/2020 BMP + ioniz ed calci um, serum or plasm a TCO2 26 mmol/ L 24-29 Not Available [address], [address], 06/27/2020 14:03:38 06/27/19 21 06/27/2020 BMP + ioniz ed calci um, serum or plasm a angap 13 mmol/ L 10-20 Not Available [address], [address], 06/27/2020 14:03:38 06/27/19 21 06/27/2020 BMP + ioniz ed calci um, serum or plasm a ica 1.15 mmol/ L 1.12-1 .32 Not Available [address], [address], 06/27/2020 14:03:38 06/27/19 21 06/27/2020 BMP + ioniz ed calci um, serum or plasm a HCT 45 %pcv 38-51 Not Available [address], [address], 06/27/2020 14:03:38 06/27/19 21 06/27/2020 BMP + ioniz ed calci um, serum or plasm a Hb 15.3 g/dL 12-17 Not Available [address], [address], 06/27/2020 14:03:38 07/09/19 21 07/10/2020 SARS CoV 2 RNA (COVI D-19) , QL, environmental management specialist-P CR, respi rator y speci men covid-19, (RT)-PCR (neg) NEGAT JEANIE 2019- novel Coron aviru s (2019 -nCoV ) not detec tesha by the qRT-P CR assay . If clini prakash suspi cion for COVID -19 is high, kadi nue to maint ain preca ution s and consi ronan repea t testi ng. Resul t repor tesha to the [facility]. This test has been autho rized by the FDA under an Emerg ency Use Autho rizat ion (EUA) for use by autho rized labor atori es. Test perfo rmed by Clini pra[facility] Andres campbell, KRISTIE at the [facility] of [facility] and Pool monteiro, [address] [place] [address] . CLIA ID: [id number] , CAP: [id number] 96. Medic al Direc tor: Sera Reese, PhD FAC (NOTE ) The CRSP SARS- CoV-2 Real- time Rever se Trans cript ase (RT)- PCR Diagn ostic Assay is a real- time RT-PC R test inten ded for the quali tativ e detec tion of nucle ic acid from the SARS- CoV-2 in nasop haryn geal and oroph aryng eal swabs colle cted from indiv idual s who may have contr acted the virus . Testi ng is limit ed to the [facility] Andres gonzalez at the [facility] which is certi fied under the Clini prakash Labor atory Impro vemen t Amend ments of 1987 (CLIA ), 42 U.S.C . ?263a , to perfo rm high compl exity tests . = Posit jeanie resul ts are indic ative of activ e infec tion with SARS- CoV-2 but do not rule out bacte rial infec tion or co-in fecti on with other virus es. The agent detec tesha may not be the defin ite cause of disea se. In addit ion, nucle ic acid detec tion can persi st follo wing clear ance of activ e viral repli catio n. Labor atori es withi n the Unite d State s and its vicenta yosvany s are requi red to repor t all posit jeanie resul ts to the appro priat e publi c healt h autho ritie s. = Negat jeanie resul ts do not precl ude SARS- CoV-2 infec tion and shoul d not be used as the sole basis for patie nt treat ment or other patie nt manag ement decis ions. Negat jeanie resul ts must be combi jh with clini prakash obser vatio ns, patie nt histo ry, and epide miolo gical infor matio n. Not Available [facility] (Centralized Electronic Ordering - All Locations) Patient Can Go To The Location Of Their Choice, [id number] 07/10/2020 18:04:09 Result Notes None recorded. Problems Name Problem SNOMED Code Status Onset Date Resolution Date Notes Provider Name and Address Organization Details Recorded Time Multiple sclerosis 76942242 Active 2018 NIKKI HI NP [address] [place], [address], [place] [facility] 9 10:07:47 Flank pain 809333982 Active 2018 ARIELA AMARAL NP [address] [place], [address], [place] [facility] 9 13:02:14 Nausea and vomiting 00649976 Active 2018 RALF LALA [address] [place], [address], [place] [facility] 9 14:20:14 Problem Notes None recorded. Procedures Surgical History Date Name Laterality Status Provider Name and Address Organization Details Recorded Time 06/27/19 21 Medication Review completed Bita Woods NP [address] [place], [address], [place] [facility] 06/27/2020 14:44:44 06/27/19 21 IV Start Procedure - completed Bita Woods NP [address] [place], [address], [place] [facility] 06/27/2020 14:45:03 06/26/19 21 IV Start Procedure - completed RALF BENTON [address] [place], [address], [place] [facility] 06/26/2020 10:43:47 07/03/19 20 IV Start Procedure - DH completed NIKKI HI, AVINASH [address], [place], [address], [place] [facility] 07/03/2019 19:53:41 04/28/20 19 IV Start Procedure - DH completed RALF LALA [address], [place], [address], [place] [facility] 04/28/2019 21:08:18 01/30/20 19 IV Start Procedure - DH completed ARIELA AMARAL NP [address], [place], [address], [place] [facility] 01/29/2019 16:00:58 11/28/19 19 Venipuncture - DH completed Svetlana Becerril NP [address], [place], [address], [place] [facility] 11/30/2018 14:24:19 11/24/19 19 Straight Cath - DH completed MADAN MENDOZA NP [address], [place], [address], [place] [facility] 11/23/2018 18:43:05 11/19/19 19 IV Start Procedure - DH completed RALF THORNTON [address], [place], [address], [place] [facility] 11/18/2018 14:45:23 11/17/19 19 IV Start Procedure - DH completed NIKKI [place] NP [address] [place], [address], [place] [facility] 11/16/2018 10:37:21 08/23/19 19 IV Start Procedure - DH completed MADAN MENDOZA NP [address], [place], [address], [place] [facility] 08/22/2018 15:51:11 08/21/19 19 IV Start Procedure - DH completed RALF THORNTON [address], [place], [address], [place] [facility] 08/22/2018 12:07:34 Imaging Results None recorded. Procedure Notes None recorded. Medical Equipment None Reported. Allergies Allergen ID Allergen Name Allergen Category Reaction Reaction Severity Criticality Documentation Date Start Date Code Code System Note Provider Name and Address Organization Details Recorded Time 785626 Valium medicatio n Not available Not available Not available 07/09/2020 73992 2 RxNorm Benitalidia Flower NP [address], [place], [address], [place] [facility] 1 14:42:42 26988 Ativan medicatio n Not available Not available Not available 08/20/2018 86544 9 RxNorm DARCY ELIZABETH, PA [address], [place], [address], [place] [facility] 9 21:29:38 48834 Bactrim medicatio n Not available Not available Not available 08/20/2018 87984 9 RxNorm DARCY INAGUS PA [address], [place], [address], [place] [facility] 9 21:29:51 68445 cephalexi n medicatio n Not available Not available Not available 08/20/2018 2231 RxNorm DARCY YUGUS, PA [address], [place], [address], [place] [facility] 9 21:42:46 99331 erythromy connie medicatio n Not available Not available Not available 08/20/2018 4053 RxNorm DARCY BUCKLEYGUS, PA [address], [place], [address], [place] [facility] 9 21:43:17 73505 fentanyl medicatio n Not available Not available Not available 08/20/2018 4337 RxNorm DARCY INAGUS PA [address], [place], [address], [place] [facility] 9 21:43:53 06801 meclizine medicatio n Not available Not available Not available 08/20/2018 6676 RxNorm DARCY YUGUS, PA [address], [place], [address], [place] [facility] 9 21:44:24 20558 Product containin g penicilli n (product) medicatio n Not available Not available Not available 08/20/2018 84921 8001 SNOMED RALF THORNTON [address], [place], [address], [place] [facility] 9 21:44:39 71183 Phenergan medicatio n Not available Not available Not available 08/20/2018 80146 8 RxNorm RALF THORNTON [address], [place], [address], [place] [facility] 9 21:44:53 70320 methylpre dnisolone medicatio n Not available Not available Not available 08/22/2018 6902 RxNorm DARCY JOHNSON, RALF [address], [place], [address], [place] [facility] 9 12:01:11 37012 dexametha sone medicatio n Not available Not available Not available 06/20/2019 3264 RxNorm KARLEE Sidney cedeno, RALF [address], [facility] [place], [address], [place] [facility] 0 14:31:09 Medications Name Sig Start Date Stop Date Status Note LastModified by Organization Details LastModified Time cyclobenzap rine 10 mg tablet TAKE 1 TABLET BY MOUTH EVERY 8 HOURS NEEDED FOR MUSCLE SPASM active Not Available Not Available No t Available acetaminoph en 325 mg tablet 650 mg PO administe red on scene. Time administe red: 2230 11/27 completed Not Available Not Available Not Available gabapentin 600 mg tablet TAKE 1 TABLET BY MOUTH 3 TIMES A DAY active Not Available Not Available No t Available doxycycline hyclate 100 mg capsule TAKE 1 CAPSULE BY MOUTH TWICE A DAY FOR 10 DAYS WITH 50MG active Not Available Not Available No t Available clindamycin HCl 300 mg capsule TAKE 1 CAPSULE BY MOUTH 3 TIMES A DAY FOR 7 DAYS active Not Available Not Available No t Available albuterol sulfate 2.5 mg/3 mL (0.083 %) solution for nebulizatio n INHALE 1 VIAL VIA NEBULIZER EVERY 6 HOURS NEEDED FOR WHEEZING active Not Available Not Available No t Available citalopram 40 mg tablet 11/16 completed Not Available Not Available Not Available trazodone 50 mg tablet 08/20 completed Not Available Not Available Not Available cetirizine 10 mg tablet TAKE 1 TABLET BY MOUTH EVERY DAY active Not Available Not Available No t Available azithromyci n 250 mg tablet TAKE 2 TABLETS TODAY, THEN ONE TABLET ON DAYS 2 5 active Not Available Not Available No t Available Lidocaine Viscous 2 % mucosal solution Take 15 mL 4 times a day by oral route as needed for 7 days. 06/20 completed Not Available Not Available Not Available sucralfate 100 mg/mL oral suspension GIVE 10ML BY MOUTH TWICE A DAY active Not Available Not Available No t Available prochlorper azine maleate 5 mg tablet 08/20 completed Not Available Not Available Not Available ondansetron HCl 8 mg tablet 11/16 completed Not Available Not Available Not Available ondansetron HCl 2 mg/mL intravenous solution 4 mg IV administe red on scene. Time administe red: 14:00 2020 active Not Available Not Available Not Avai lable Compro 25 mg rectal suppository INSERT 1 SUPPOSITO RY RECTALLY 2 TIMES A DAY NEEDED FOR NAUSEA/VO MITING active Not Available Not Available No t Available fluconazole 200 mg tablet 06/20 completed Not Available Not Available Not Available sucralfate 1 gram tablet TAKE 1 TABLET BY MOUTH FOUR TIMES A DAY 1 HOUR BEFORE MEALS AND BEDTIME active Not Available Not Available No t Available doxycycline hyclate 50 mg capsule TAKE 1 CAPSULE BY MOUTH TWICE A DAY FOR 10 DAYS WITH 100MG active Not Available Not Available No t Available clindamycin HCl 150 mg capsule 01/29 completed Not Available Not Available Not Available potassium chloride ER 10 mEq tablet,exte nded release 40 mEq PO administe red on scene. Time administe red: 1417 2020 active Not Available Not Available Not Avai lable metronidazo le 500 mg tablet 08/20 completed Not Available Not Available Not Available oxcarbazepi ne 300 mg tablet TAKE 1 TABLET BY MOUTH 3 TIMES A DAY active Not Available Not Available No t Available sulfacetami de sodium (acne) 10 % lotion (suspension ) APPLY TO AFFECTED AREA TWICE A DAY active Not Available Not Available No t Available ciprofloxac in 500 mg tablet 08/20 completed Not Available Not Available Not Available triamcinolo ne acetonide 0.1 % topical cream APPLY TO AFFECTED AREA TWICE A DAY FOR 7 DAYS active Not Available Not Available No t Available ketorolac 30 mg/mL (1 mL) injection solution 30 mg IM administe red on scene. Time administe red: 1334 2019 active Not Available Not Available Not Avai lable ondansetron 8 mg disintegrat ing tablet DISOLVE 1 TABLET BY MOUTH EVERY 8 HOURS NEEDED active Not Available Not Available No t Available oxycodone 15 mg tablet 12/09 completed Not Available Not Available Not Available carbidopa 25 mg tablet TAKE 3 TABLETS BY MOUTH IN THE MORNING AND 2 TABLETS IN THE AFTERNOON AND 3 TABLETS IN THE EVENING active Not Available Not Available No t Available hydromorpho ne 2 mg tablet 12/09 completed Not Available Not Available Not Available ziprasidone 20 mg capsule 12/09 completed Not Available Not Available Not Available diphenhydra mine 50 mg/mL injection solution 25 mg IV administe red on scene. Time administe red: 1520 11/27 completed Not Available Not Available Not Available Pediatric Electrolyte oral solution DRINK 1 LITER BY MOUTH DAILY. *GRAPE active Not Available Not Available No t Available gabapentin 800 mg tablet 04/28 completed Not Available Not Available Not Available dicyclomine 20 mg tablet TAKE 1 TABLET BY MOUTH EVERY 6 HOURS NEEDED active Not Available Not Available No t Available Zofran ODT 4 mg disintegrat ing tablet one ODT administe red on scene. Time administe red: 2019 active Not Available Not Available Not Avai lable nortriptyli ne 10 mg capsule TAKE 2 CAPSULES BY MOUTH AT BEDTIME active Not Available Not Available No t Available oseltamivir 75 mg capsule 08/20 completed Not Available Not Available Not Available Gentle Laxative (bisacodyl) 5 mg tablet,edgar yed release 06/20 completed Not Available Not Available Not Available pyridostigm ine bromide 60 mg tablet TAKE 1 AND 1/2 TABS BY MOUTH EVERY MORNING, 1 TAB AT NOON AND 1 AND 1/2 TABS AT 4PM active Not Available Not Available No t Available nicotine 21 mg/24 hr daily transdermal patch active Not Available Not Available Not Available gabapentin 300 mg capsule TAKE 1 CAPSULE BY MOUTH 3 TIMES A DAY active Not Available Not Available No t Available codeine 10 mg-guaifene sin 100 mg/5 mL oral liquid TAKE 7.5 ML BY MOUTH EVERY EVENING AT BEDTIME NEEDED FOR COUGH. active Not Available Not Available No t Available norethindro ne acetate 5 mg tablet 08/20 completed Not Available Not Available Not Available sodium chloride 0.9 % intravenous solution 1 L administe red on scene. Time administe red: 10:36am 2020 active Not Available Not Available Not Avai lable ibuprofen 600 mg tablet TAKE 1 TABLET BY MOUTH EVERY 6 HOURS NEEDED FOR PAIN OR FEVER. active Not Available Not Available No t Available fludrocorti sone 0.1 mg tablet TAKE 1 TABLET BY MOUTH EVERY DAY IN THE MORNING. active Not Available Not Available No t Available doxycycline hyclate 100 mg tablet Take 1 tablet twice a day by oral route for 10 days. 06/20 completed Not Available Not Available Not Available naproxen 500 mg tablet 08/20 completed Not Available Not Available Not Available diazepam 5 mg tablet TAKE 1 TAB BY MOUTH 3 TIMES A DAY NEEDED FOR VOMITING. ONLY TAKE DURING CYCLINC VOMITING EPISODES active Not Available Not Available No t Available metoclopram keon 10 mg tablet 01/29 completed Not Available Not Available Not Available nicotine 7 mg/24 hr daily transdermal patch 08/20 completed Not Available Not Available Not Available oxycodone 5 mg tablet TAKE 2 TABLETS BY MOUTH EVERY 6 HOURS NEEDED FOR PAIN active Not Available Not Available No t Available modafinil 100 mg tablet TAKE 1 TABLET EVERY MORNING NEEDED. MAY REPEAT AT NOON NEEDED active Not Available Not Available No t Available Denta 5000 Plus 1.1 % cream 06/20 completed Not Available Not Available Not Available nitrofurant oin monohydrate /macrocryst als 100 mg capsule 01/29 completed Not Available Not Available Not Available duloxetine 30 mg capsule,del ayed release 04/28 completed Not Available Not Available Not Available duloxetine 60 mg capsule,del ayed release TAKE 1 CAPSULE BY MOUTH EVERY DAY active Not Available Not Available No t Available fentanyl 12 mcg/hr transdermal patch APPLY 1 PATCH TOPICALLY EVERY 72 HOURS, DO NOT TAKE OXYCODONE WHILE WEARING PATCH active Not Available Not Available No t Available chlorhexidi ne gluconate 0.12 % mouthwash 04/28 completed Not Available Not Available Not Available ProAir HFA 90 mcg/actuati on aerosol inhaler TAKE 2 PUFFS EVERY 6 HOURS NEEDED FOR WHEEZING FOR 30 DAYS active Not Available Not Available No t Available quetiapine 50 mg tablet 01/29 completed Not Available Not Available Not Available ondansetron HCl (PF) 4 mg/2 mL injection syringe Take 4 mg by injection route. 2020 active Not Available Not Available Not Avai lable doxycycline hyclate 150 mg tablet,edgar yed release TAKE 1 TABLET BY MOUTH TWICE A DAY active Not Available Not Available No t Available GaviLyte-N 420 gram oral solution 06/20 completed Not Available Not Available Not Available Nuedexta 20 mg-10 mg capsule 06/20 completed Not Available Not Available Not Available PreviDent 5000 Enamel Protect 1.1 %-5 % dental paste PLEASE SEE ATTACHED FOR DETAILED DIRECTION S active Not Available Not Available No t Available lidocaine 5 % topical ointment 06/20 completed Not Available Not Available Not Available Spiriva Respimat 2.5 mcg/actuati on solution for inhalation TAKE 2 PUFFS BY MOUTH EVERY DAY active Not Available Not Available No t Available OxyContin 10 mg tablet,jac h resistant,e xtended release TAKE 1 TABLET BY MOUTH EVERY 12 HOURS FOR 28 DAYS active Not Available Not Available No t Available Baxdela 450 mg tablet 04/06 completed Not Available Not Available Not Available Vitals Date Recorded Oxygen saturation Oxygen saturation in Arterial blood by Pulse oximetry Heart rate Respiratory rate Body temperature Systolic And Diastolic Provider Name and Address Organization Details Last Updated DateTime 1 98 % 98 % 84 /min 22 /min 99.4 [degF] 140/100 mm[Hg] Not Available [facility] 1 10:22:54 Date Recorded Respiratory rate Heart rate Body temperature Oxygen saturation Oxygen saturation in Arterial blood by Pulse oximetry Systolic And Diastolic Provider Name and Address Organization Details Last Updated DateTime 1 18 /min 86 /min 98.9 [degF] 97 % 97 % 138/80 mm[Hg] Not Available [facility] 1 13:41:32 Date Recorded Oxygen saturation Oxygen saturation in Arterial blood by Pulse oximetry Respiratory rate Body temperature Heart rate Systolic And Diastolic Provider Name and Address Organization Details Last Updated DateTime 0 97 % 97 % 18 /min 98.3 [degF] 62 /min 130/78 mm[Hg] Not Available [facility] 0 13:05:06 Social History Question Answer Notes LastModified by Organizat ion Details LastModified Time Tobacco Smoking Status Current Every Day Smoker ARIELA AMARAL NP [address] [place], [address], [place] [facility] 12/09/2018 12:50:57 What Was The Date Of Your Most Recent Tobacco Screening? 12/09/2018 Information not available 12/24/2018 How Much Tobacco Do You Smoke? 1 PPD [email or web address] Information not available 12/09/2018 Sex: Unknown Functional Status None recorded. Mental Status None recorded. Family History Relationship Description Onset Age of this Age Resolved Age Notes LastModified by Organization Details LastModified Time Father Coronary arterioscler osis [email or web address] Not available 12/09 12:50:47 Medical History No medical history recorded. Gynecological HistoryNo gynecological history recorded. Obstetrics History GPAL:G 0 P 0 0 0 0 Past Encounters Encounter ID Performer Location Encounter Start Date Encounter Closed Date Diagnosis/Indication Diagnosis SNOMED-CT Code Diagnosis ICD10 Code Diagnosis IMO Codes Diagnosis Note [id number] RALF THORNTON [facility] [address] [place] [address] 08/20/2018 21:18:48 08/24/2018 12:30:47 Acute vomiting 47145013 R11.10 Nausea and vomiting 1692 1999 R11.2 Low back pain 077593625 M54.5 Moderate dehydration 020 4451067 105 E86.0 Fever with chills 825326 006 R50.9 [id number] MADAN MENDOZA NP [facility] [address] [place] [address] 08/22/2018 14:52:09 08/22/2018 15:59:28 Nausea and vomiting 01287177 R11.2 Anxiety 20348380 F41.9 Primary pr ogressive multiple sclerosis 440756019 G35 Generalize d aches and pains 53756758 R52 [id number] NIKKI HI NP [facility] [address] [place] [address] 11/16/2018 10:03:45 11/17/2018 11:55:46 Diarrhea 18361348 R19.7 Acute vomiting 80923294 R11.10 Hypokalemia 96012055 E87 .6 Multiple sclerosis 34696 007 G35 [id number] RALF THORNTON [facility] [address] [place] [address] 11/18/2018 13:00:07 11/19/2018 11:28:04 Acute vomiting 07101197 R11.10 Nausea 906887324 R11.0 [id number] MADAN MENDOZA NP [facility] [address] [place] [address] 11/23/2018 13:28:18 11/23/2018 18:48:11 Mild dehydration 6913186320 108 E86.0 Multiple sclerosis 36087 007 G35 [id number] Svetlana Becerril NP [facility] [address] [place] [address] 11/27/2018 12:52:02 11/30/2018 18:51:36 Nausea and vomiting 28914292 R11.2 [id number] ARIELA AMARAL NP [facility] [address] [place] [address] 12/09/2018 12:44:45 12/09/2018 16:20:31 Flank pain 385196672 R10.9 Low back strain 43111762 1 S39.012A [id number] DARCY JOHNSON [place] [facility] [address] [place] [address] 12/12/2018 15:40:36 12/15/2018 18:47:12 Exacerbation of multiple sclerosis 827069701 G35 [id number] ARIELA AMARAL NP [facility] [address] [place] [address] 01/29/2019 15:29:14 02/02/2019 10:10:18 Nausea, vomiting and diarrhea 4545485 R19.7 Viral gastroenteritis 11 6054313 A08.4 [id number] RALF LALA [facility] [address] [place] [address] 03/29/2019 14:05:58 03/29/2019 15:27:13 Nausea and vomiting 51772064 R11.2 [id number] MADAN MENDOZA NP [facility] [address] [place] [address] 04/03/2019 11:46:16 04/03/2019 17:40:58 Galactorrhea due to non-obstetric cause 034100566 N64.3 Acute dermatitis 9071168 6 L30.9 [id number] RALF LALA [facility] [address] [place] [address] 04/06/2019 11:40:22 04/06/2019 13:17:27 Pruritic rash 22328336 L28.2 [id number] RALF THORNTON [facility] [address] [place] [address] 04/08/2019 14:04:00 04/08/2019 23:13:52 Folliculitis 69465200 L73.9 [id number] RALF LALA [facility] [address] [place] [address] 04/28/2019 20:29:41 04/30/2019 11:58:54 Exacerbation of multiple sclerosis 507614031 G35 [id number] MADAN MENDOZA NP [facility] [address] [place] [address] 05/02/2019 14:26:08 05/05/2019 17:25:00 Nausea and vomiting 68332414 R11.2 Pain in throat 599873218 R07.0 [id number] RALF Mike [facility] [address] [place] [address] 06/20/2019 14:26:17 06/21/2019 12:07:06 Acute rhinosinusitis 741402642 J00 Multiple sclerosis 99501 007 G35 [id number] INKKI HI NP [facility] [address] [place] [address] 07/03/2019 19:36:41 07/05/2019 13:02:07 Acute vomiting 60745671 R11.10 Dehydration 03725823 E86 .0 Multiple sclerosis 35127 007 G35 [id number] RALF LALA [facility] [address] [facility] [place] [address] 07/07/2019 16:21:26 07/09/2019 12:05:35 Chill 09274042 R68.83 Multiple sclerosis 88505 007 G35 [id number] MADAN MENDOZA [employer] [facility] [address] [facility] [place] [address] 07/12/2019 12:59:28 07/13/2019 13:40:35 Nausea and vomiting 47396924 R11.2 Low back pain 103569024 M54.5 [id number] WIL HELTON PA [facility] [address] [facility] [place] [address] 06/26/2020 10:03:05 06/27/2020 01:39:58 Dehydration 96823590 E86.0 Nausea and vomiting 1693 2000 R11.2 [id number] Bita Woods [employer] [facility] [address] [facility] [place] [address] 06/27/2020 13:36:20 06/28/2020 12:00:22 Dehydration 94359439 E86.0 Multiple sclerosis 43370 007 G35 Nausea and vomiting 1693 2000 R11.2 Low back pain 006248442 M54.5 Hypokalemia 25738319 E87 .6 [id number] Benita Flower [employer] [facility] [address] [place] [address] 07/09/2020 14:52:27 07/12/2020 10:09:03 Exposure to communicable disease 160093152 Z20.822 Health Concerns Section Related Observation LastModified by Organization Detai ls LastModified Time None Recorded Concern Status LastModified by Organization Details LastModified Time None Recorded Advance Directives Directive None Recorded Payers Insurance Date Sequence Insurance Name Policy Number Policy Summers Covered Member ID Summers Member ID Guarantor Name 08/20/2018 2 [place] [facility] Roxanne Parker [id number] Roxanne Parker 07/09/2020 2 [place] [facility] Roxanne Parker [id number] Roxanne Parker 08/26/2018 2 [place] [facility] Roxanne Parker [id number] Roxanne Parker 08/20/2018 2 [facility] (MEDICAID HMO) Roxanne Parker [id number] Roxanne Parker 08/20/2018 1 *SELF PAY* Roxanne Parker [id number] Roxanne Parker 07/12/2020 1 [facility] [id number] Jose Parker [id number] Roxanne Parker Notes Date Note Type Note Provider Name and Address Organization Details Recorded Time 07/07/2019 text/html 38-year-old female present for evaluation. Reports this morning awoke with chills and sweats and believes she could use some fluids . Denies chest pain, shortness of breath, cough, abdominal pain, vomiting. States has been trying to drink water and pedialyte but gets nauseous. Believes is from her MS. RALF LALA [address], [place], [address], [place] [facility] 07/07/2019 22:15:26 07/12/2019 text/html 38 year-old female with history of MS, abdominal pain, esophageal ulcers and peptic ulcers,Seen 2/5 in ED after came to the home for evaluation of dehydration. She was given 2 liters of fluid in the ED and sent home. Since being home she has been having consistent episodes of abdominal pain, nausea, vomiting. She has been taking her percocet, gabapentin and trileptal for her pain 3 times a day. She has been taking 8 mg zofran but continues with nausea and vomiting.She is concerned for dehydration. She has vomited some of the doses of her pain medications.She took zofran last during the night last night. MADAN MENDOZA NP [address], [place], [address], [place] [facility] 07/12/2019 13:53:47 06/26/2020 text/html [id number] keyla knwon to new to this provider pmhx peptic ulcers, nausea and vomiting and MS with spinal lesions. Patient is seen today for 12 hours of nausea and vomiting. No fever. Abdominal pain only when vomiting. Patient tried compazine suppository last night without any releif. Patient has had a tubal ligation in the past and surgery for endometriosis. Patient denies any urinary complaints, diarrhea, hematochezia, or melena [facility] [address], [place], [address], [place] [facility] 06/26/2020 12:17:11 06/27/2020 text/html 39yo female who is known to but new to this provider with a PMHx of MS, spinal cord lesions, endometriosis and hip dysplasia being seen for N/V. She reports monthly around her menses she develops an autonomic crisis where she has N/V and dehydration. She has been treated multiple times in the past with IV and IV Zofran. She reports she cannot tolerate oral Zofran. She had a (-) Covid test in early June. Reports headache and back ache today. She was seen yesterday by and given 1L IVF and IV Zofran. She reports she continued to vomit through the night. Denies any diarrhea, reports last BM was 3-4 days ago, she has been taking colace. Bita Woods NP [address], [place], [address], [place] - [facility] 06/30/2020 13:48:43 07/09/2020 text/html Patient is a 39 year old female who is alert. She is known to and new to this provider. Patient presents with request for Covid testing as her minor daughter is having [facility] testing 07/12/2020. Patient is not experiencing any untoward symptomology at present. Her medical history is significant for spinal cord lesions, MS, hip dysplasia, endometriosis. Benita Flower NP [address], [place], [address], [place] [facility] 07/23/2020 09:19:44 OBGyn Episode No OBEpisode recorded.
--- OUTSIDE RECORDS SUMMARY | 2025-03-31 01:56 | XMS_ITS | Encounter Summary ---
Author Organization [facility] Address [address] [place] [address] Care Team Providers Care Principal Administrative Clerk Name Role Phone Anmol Garza Primary Care Provider Encounter Details Date Type Department Care Team (Late st Contact Info) Description 03/22/2022 Telephone [facility] Central Scheduling Department [address] [place] [id number] Telephone Intake, Staff Social History Tobacco Use [...] encounter Miscellaneous Notes * Telephone Encounter - Tiki Garibay - 03/22/2022 12:42 PM EDT Pt called requesting a sooner appt for MS clinic with Dr Martin. Pt is experiencing shortness ofbreath, is having skin conditions- a rash on her hands that taylor and stings and is blister-like, is having inflammation and is vomiting blood when she takes ibuprofen. She is concerned as she is going into a surgery soon and is having a MS Flare. Pt is recovering from Covid infection in October. Pt prefers to see Dr Martin. Could someone please contact the patient to schedule? documented in this encounter Plan of Treatment Not on file documented as of this encounter Visit Diagnoses Not on filedocumented in this encounter Care Teams Principal Administrative Clerk Relationship Specialty Start Date End Date Anmol Garza [address] [place] [id number] PCP - General Family Medicine 04/22/24 documented as of this encounter
--- OUTSIDE RECORDS SUMMARY | 2025-03-31 01:56 | XMS_ITS | Encounter Summary ---
Author Organization [facility] Address [address] [place] [address] Care Team Providers Care Analyst Name Role Phone Anmol Garza Primary Care Provider [phone] Encounter Details Date Type Department Care Team (Late st Contact Info) Description 11/15/2021 [employer] Message [facility] [address] [id number] Mychart, Generic Provider [address] [place], [place] [phone] new medication Social History Tobacco Use Types Packs/Day Years [...] on filedocumented in this encounter Care Teams Analyst Relationship Specialty Start Date End Date Anmol Garza [address] [place] [address] [place] [address] PCP - General Family Medicine 04/22/24 documented as of this encounter
--- OUTSIDE RECORDS SUMMARY | 2025-03-31 01:56 | XMS_ITS | Clinical Summary ---
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 02/01/2025 2:21 PM EDT [facility] Hemoglobin 11.8 11.5 - 16.0 g/dL LAB HEMETOLOGY METHOD 02/01/2025 2:21 PM EDT [facility] Hematocrit 35.8 35.0 - 47.0 % LAB HEMETOLOGY METHOD 02/01/2025 2:21 PM EDT [facility] MCV 91.3 79.0 - 98.0 FL LAB HEMETOLOGY METHOD 02/01/2025 2:21 PM EDT [facility] MCH 30.1 27.0 - 32.0 pcg LAB HEMETOLOGY METHOD 02/01/2025 [facility] MCHC 33.0 32.0 - 37.0 g/dL LAB HEMETOLOGY METHOD 02/01/2025 2:21 PM EDT [facility] RDW 14.2 11.0 - 15.0 % LAB HEMETOLOGY METHOD 02/01/2025 2:21 PM [facility] Platelets 325 130 - 400 K/mcL LAB HEMETOLOGY METHOD 02/01/2025 2:[facility] MPV 10.0 7.0 - 11.0 FL LAB HEMETOLOGY METHOD 02/01/2025 2:[facility] NRBC 0.0 <1.0 % LAB HEMETOLOGY METHOD 02/01/2025 2:21 PM [facility] NRBC Absolute 0.00 <0.10 K/mcL LAB HEMETOLOGY METHOD 02/01/2025 2:21 PM [facility] Neutrophils Relative 57.3 % LAB HEMETOLOGY METHOD 02/01/2025 2:21 PM [facility] Lymphocytes Relative 25.8 % LAB HEMETOLOGY METHOD 02/01/2025 2:21 PM [facility] Monocytes Relative 8.0 % LAB HEMETOLOGY METHOD 02/01/2025 2:21 PM [facility] Eosinophils Relative 7.6 % LAB HEMETOLOGY METHOD 02/01/2025 2:21 PM [facility] Basophils Relative 1.0 % LAB HEMETOLOGY METHOD 02/01/2025 2:21 PM [facility] Immature Granulocytes Relative 0.3 % LAB HEMETOLOGY METHOD 02/01/2025 2:21 PM EDT [facility] Neutrophils Absolute 5.37 1.50 - 7.00 K/[facility] LAB HEMETOLOGY METHOD 02/01/2025 2:21 PM EDT [facility] Lymphocytes Absolute 2.42 1.00 - 5.00 K/mcL LAB HEMETOLOGY METHOD 02/01/2025 2:21 PM EDT [facility] Monocytes Absolute 0.75 0.20 - 1.00 K/mcL LAB HEMETOLOGY METHOD 02/01/2025 2:21 PM EDT [facility] Eosinophils Absolute 0.71(H) 0.00 - 0.50 K/mcL LAB HEMETOLOGY METHOD 02/01/2025 2:21 PM EDT [facility] Basophils Absolute 0.09 0.00 - 0.20 K/mcL LAB HEMETOLOGY METHOD 02/01/2025 2:21 PM EDT [facility] Immature Granulocytes Absolute 0.03 0.00 - 0.03 K/mcL LAB HEMETOLOGY METHOD 02/01/2025 2:21 PM EDT [facility] Blood Venous blood specimen / Unknown Venipuncture / Unknown 02/01/2025 10:25 AM EDT 02/01/2025 10:25 AM EDT Andre Hooks MD LAB BLOOD ORDERABLES Fin al Result [facility] [address] [place] [address], * NMO AQP4 FACS, S WARDE CODE NMOSE SERUM - Miscellaneous Test (02/01/2025 10:25 AM EDT) Scan Result See Scanned Result 02/08/2025 1:48 PM EDT [facility] Blood Venipuncture / Unknown 02/01/2025 10:25 AM EDT 02/08/2025 11:59 AM EDT us Andre Hooks MD LAB BLOOD ORDERABLES Fin al Result Performing Organization Address [facility] de Phone Number [facility] [address] [place] [address], * Borrelia burgdorferi antibody (02/01/2025 10:25 AM EDT) Lyme Ab Negative Negative LAB CHEMISTRY METHOD 02/02/2025 12:13 PM EDT [facility] Comment: No laboratory evidence of infection with B. burgdorferi (Lyme disease). Negative results may occur in patients recently infected (<=14 days) with B. burgdorferi. If recent infection is suspected, repeat testing on a new sample collected in 7- 14 days is recommended. Blood Venous blood specimen / Unknown Venipuncture / Unknown 02/01/2025 10:25 AM EDT 02/01/2025 10:25 AM EDT us Andre Hooks MD LAB BLOOD ORDERABLES Fin al Result Performing Organization Address [facility] de Phone Number [facility] [address] [place] [address], * Creatinine (02/01/2025 10:25 AM EDT) Creatinine 0.69 0.50 - 1.10 mg/dL LAB CHEMISTRY METHOD 02/01/2025 4:37 PM EDT [facility] eGFR 111 >=60 mL/min/1. 73m2 LAB CHEMISTRY METHOD 02/01/2025 4:37 PM EDT [facility] Comment:Calculation based on the Chronic Kidney Disease Epidemiology Collaboration (CKD-EPI) equation refit without adjustment for race. Blood Venous blood specimen / Unknown Venipuncture / Unknown 02/01/2025 10:25 AM EDT 02/01/2025 10:25 AM EDT us Andre Hooks MD LAB BLOOD ORDERABLES Fin al Result Performing Organization Address City/[facility]/ZIP Co de Phone Number [facility] [address] [place] [address], * Vitamin D 25 hydroxy (02/01/2025 10:25 AM EDT) Vit D, 25-Hydroxy 54.4 30.0 - 80.0 ng/mL LAB CHEMISTRY METHOD 02/01/2025 5:00 PM EDT [facility] Blood Venous blood specimen / Unknown Venipuncture / Unknown 02/01/2025 10:25 AM EDT 02/01/2025 10:25 AM EDT us Andre Hooks MD LAB BLOOD ORDERABLES Fin al Result Performing Organization Address [facility] de Phone Number [facility] [address] [place] [address], * Rheumatoid factor (02/01/2025 10:25 AM EDT) Rheumatoid Factor <10.0 <15.0 I Unit/mL LAB CHEMISTRY METHOD 02/01/2025 5:05 PM EDT [facility] Blood Venous blood specimen / Unknown Venipuncture / Unknown 02/01/2025 10:25 AM EDT 02/01/2025 10:25 AM EDT us Andre Hooks MD LAB BLOOD ORDERABLES Fin al Result Performing Organization Address [facility]/ZIP Co de Phone Number [facility] [address] [place] [address], * Varicella zoster antibody IgG (02/01/2025 10:25 AM EDT) Pathologist [facility] Varicella IgG Positive Positive LAB CHEMISTRY METHOD 02/02/2025 12:06 PM EDT [facility] Varicella Zoster IgG 12.80 >=1.00 S/CO LAB CHEMISTRY METHOD 02/02/2025 12:06 PM EDT [facility] Blood Venous blood specimen / Unknown Venipuncture / Unknown 02/01/2025 10:25 AM EDT 02/01/2025 10:25 AM EDT Narrative [facility] - 02/02/2025 12:06 PM EDT Interpretation >= 1.00 S/CO is considered to be consistent with Immunity us Andre Hooks MD LAB BLOOD ORDERABLES Fin al Result Performing Organization Address [facility]/ZIP Co de Phone Number [facility] [address] [place] [address], [place] [phone] * BUN (02/01/2025 10:25 AM EDT) [facility] BUN 12 5 - 25 mg/dL LAB CHEMISTRY METHOD 02/01/2025 4:37 PM EDT [facility] Blood Venous blood specimen / Unknown Venipuncture / Unknown 02/01/2025 10:25 AM EDT 02/01/2025 10:25 AM EDT us Andre Hooks MD LAB BLOOD ORDERABLES Fin al Result Performing Organization Address [facility]/ZIP Co de Phone Number [facility] [address] [place] [address], [place] [phone] * Immunoglobulin IgA (02/01/2025 10:25 AM EDT) [facility] IgA 71 61 - 348 mg/dL LAB CHEMISTRY METHOD 02/01/2025 5:05 PM EDT [facility] Blood Venous blood specimen / Unknown Venipuncture / Unknown 02/01/2025 10:25 AM EDT 02/01/2025 10:25 AM EDT us Andre Hooks MD LAB BLOOD ORDERABLES Fin al Result Performing Organization Address City/[facility]/ZIP Co de Phone Number [facility] [address] [place] [address], [place] [phone] * Immunoglobulin IgM (02/01/2025 10:25 AM EDT) IgM 23 23 - 259 mg/dL LAB CHEMISTRY METHOD 02/01/2025 5:05 PM EDT [facility] Blood Venous blood specimen / Unknown Venipuncture / Unknown 02/01/2025 10:25 AM EDT 02/01/2025 10:25 AM EDT us Andre Hooks MD LAB BLOOD ORDERABLES Fin al Result Performing Organization Address City/[facility]/ZIP Co de Phone Number [facility] [address] [place] [address], [place] [phone] * Immunoglobulin IgG (02/01/2025 10:25 AM EDT) Total IgG 622 549 - 1,584 mg/dL LAB CHEMISTRY METHOD 02/01/2025 5:05 PM EDT [facility] Blood Venous blood specimen / Unknown Venipuncture / Unknown 02/01/2025 10:25 AM EDT 02/01/2025 10:25 AM EDT us Andre Hooks MD LAB BLOOD ORDERABLES Fin al Result [facility] [address] [place] [address], [place] [phone] * Vitamin B12 (02/01/2025 10:25 AM EDT) Vitamin B-12 458 250 - 900 pcg/mL LAB CHEMISTRY METHOD 02/01/2025 5:05 PM EDT [facility] Blood Venous blood specimen / Unknown Venipuncture / Unknown 02/01/2025 10:25 AM EDT 02/01/2025 10:25 AM EDT Andre Hooks MD LAB BLOOD ORDERABLES Fin al Result [facility] [address] [place] [address], * Hm Pap Smear (05/16/2010) HM Pap smear no interpretation , abstracted Historical Provider HEALTH MAINTENANCE Final Result from Last 3 Months or Most Recently Relevant to Health Maintenance Insurance [employer] 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
--- OUTSIDE RECORDS SUMMARY | 2025-03-31 01:56 | XMS_ITS | Patient Health Record ---
Author Organization [facility], [facility] Address [address] [address] Care Team Providers Care Field Aide Name Role Phone Carol KOTHARI Primary Care Provider YVAN Carpenter Unavailable [phone] Reason For Referral Referring Provider First Name ANTHONY Referring Provider Last Name SANIYA Referring Provider Speciality Family Med icine Referred Organization [facility], [facility] Referred Provider YVAN JEAN BAPTISTE Referred Address [address],[address] Referral Priority Routine Encounters Encounter Location Date Provider Diagnosis [facility], [address] [address] 09/16/2024 YVAN [facility], [address] [address] [facility] [address] [address] [facility] [address] [address] 12/06/2024 YVAN [facility], [facility] [address] [facility] [address] [place] [address] 12/15/2024 YVAN [facility], [address] [address] 02/01/2025 [facility] [address] [place] [address] 02/02/2025 YVAN JEAN BAPTISTE Plan Of Treatment Next Appt Details Provider Name:YVAN TATUM [facility], 04/06/2025 02:00:00 PM, [address] [facility], [address], [place], [address], Insurance Providers Payer Name Payer Address Payer Phone Subscriber Number Group Number Insured Name Patient Relationship to Insured Coverage Start Date Coverage End Date [employer] [address] [place] [phone] [id number] Roxanne Parker Self - patient is the insured [facility] [address] [place] [phone] [id number] Roxanne Parker Self - patient is the insured
--- OUTSIDE RECORDS SUMMARY | 2025-03-31 01:56 | XMS_ITS | Clinical Summary ---
Author Organization [facility] Address [address] [place] [address] Care Team Providers Care Internet Network Specialist Name Role Phone Anmol Garza MD Primary Care Provider [phone] Allergies Active Allergy Reactions Criticality Noted Date Comments Lorazepam 12/15/2020 Sulfamethoxazole-Trimetho prim 12/15/2020 Erythromycin 12/15/2020 Fentanyl 12/15/2020 Fludrocortisone 10/09/2021 Gluten 12/15/2020 Haloperidol 12/15/2020 Latex High 10/14/2005 Other reaction(s): Rash/Dermatitis Meclizine 12/15/2020 Penicillins 12/15/2020 Famotidine Other (See Comments) 07/16/2021 Constipation, confusion, and severe neck pain. Promethazine 12/15/2020 Montelukast 04/09/2021 Diazepam 12/15/2020 Medications Medication Sig Dispensed Refills Start Date End Date Status DULoxetine (CYMBALTA) DR capsule 60 mg Take 60 mg by mouth daily. 0 Active gabapentin (NEURONTIN) 300 MG capsule Take 900 mg by mouth 3 (three) times a day. 0 Active OXcarbazepine (TRILEPTAL) 300 MG tablet Take 300 mg by mouth 3 (three) times a day. Take 1 in am, 2 in afternoon, and 2 in pm 0 Active ocrelizumab (OCREVUS) 300 MG/10ML SOLN Inject 600 mg into the vein once. Every 6 months 0 Active methylphenidate (RITALIN) 5 MG tablet Take 5 mg by mouth 2 (two) times a day. 0 Active methylphenidate (CONCERTA) 18 MG CR tablet Take 18 mg by mouth daily. 0 Active carbidopa (LODOSYN) 25 MG tablet Take 75 mg by mouth 3 (three) times a day. 0 Active docusate sodium (COLACE) 100 MG capsule Take 100 mg by mouth 2 (two) times a day. 0 Active prochlorperazine (COMPAZINE) 10 MG tablet Take 10 mg by mouth every 6 (six) hours as needed. 0 Active levocetirizine (XYZAL) 5 MG tablet Take 20 mg by mouth every evening. 2 tabs in am 0 Active Xtampza ER 9 MG C12A Take 9 mg by mouth 2 (two) times a day. 0 Active albuterol (PROVENTIL) (2.5 MG/3ML) 0.083% nebulizer solution albuterol sulfate 2.5 mg/3 mL (0.083 %) solution for nebulization INHALE 1 VIAL VIA NEBULIZER EVERY 6 HOURS NEEDED FOR WHEEZING 0 Active albuterol (ProAir HFA) 108 (90 Base) MCG/ACT inhaler Inhale 2 puffs into the lungs as needed. 0 Active Slynd 4 MG TABS Take 4 mg by mouth daily. 0 03/29/2021 Active ibuprofen 600 MG tablet Take 600 mg by mouth as needed. 0 Active ondansetron (ZOFRAN-ODT) 8 MG disintegrating tablet Take 8 mg by mouth as needed. 0 Active prochlorperazine (COMPAZINE) 25 MG suppository Compazine 25 mg rectal suppository as needed 0 11/23/2019 Active Sennosides 8.6 MG CAPS Take 8.6 mg by mouth daily. 2 tablets once daily 0 Active Tiotropium [place] Monohydrate 2.5 MCG/ACT AERS Spiriva Respimat 2.5 mcg/actuation solution for inhalation TAKE 2 PUFFS BY MOUTH EVERY DAY 0 03/19/2021 Active oxyCODONE (Roxicodone) 5 MG immediate release tablet Take 5 mg by mouth every 4 (four) hours as needed for pain. 0 Active diphenhydrAMINE (BENADRYL) 25 mg capsule Take 25 mg by mouth every 6 (six) hours as needed. 0 Active aspirin 325 MG tablet Take 650 mg by mouth 2 (two) times a day. 0 Active triamcinolone (KENALOG) 0.1 % lotion Apply topically 2 (two) times a day. Twice daily 0 Active baclofen (LIORESAL) 10 MG tabletIndications:Mu ltiple sclerosis (HCC) TAKE 2.5 TABLETS (25 MG TOTAL) BY MOUTH 3 TIMES DAILY. 675 tablet 1 03/02/2023 Active Active Problems Problem Noted Date Diagnosed Date Syrinx of spinal cord 05/12/2020 Anxiety 05/12/2020 Erythema nodosum 05/12/2020 Celiac disease 05/12/2020 Family History Medical History Relation Name Comments Multiple sclerosis Neg Hx Social History Tobacco Use Types Packs/Day Years Used Date Smoking Tobacco: Every Day Smokeless Tobacco: Never Sex and Gender Information Value Date Recorded Sex Assigned at Female 03/29/2020 12:03 PM EDT Gender Identity Not on file Sexual Orientation Not on file Job Start Date Occupation Industry Not on file Not on file Not on file Last Filed Vital Signs Vital Sign Reading Time Taken Comments Blood Pressure 121/82 12/14/2021 4:20 PM EDT Pulse 89 12/14/2021 4:20 PM EDT Temperature 36.3 C (97.3 F) 12/14/2021 4:20 PM EDT Respiratory Rate - - Oxygen Saturation 97% 12/14/2021 4:20 PM EDT Inhaled Oxygen Concentration - - Weight 77.1 kg (170 lb) 12/14/2021 4:20 PM EDT Height 167.6 cm (5' 6 ) 12/14/2021 4:20 PM EDT Body Mass Index 27.44 12/14/2021 4:20 PM EDT Plan of Treatment Health Maintenance Due Date Last Done Comments Hepatitis B Vaccines (1 of 3 - 3-dose series) 1982 COVID-19 Vaccine (#1) 04/30/1983 Pneumococcal Vaccine (1 of 2 - PCV) 1988 Depression Screening 1994 BMI Counseling 2000 Preventative Health Evaluation 2000 Tobacco Cessation Counseling 2000 Cervical Cancer Screening (Pap Smear) 10/29/2003 Influenza Vaccine (#1) 2025 9, 04/21/2008, 03/26/2007 DTap / Tdap / Td (2 - Td or Tdap) 04/08/2033 04/08/2023 Hepatitis C Screening Completed 05/02/2022 RSV Ped < 20 months Aged Out No longe r eligible based on patient's age to complete this topic Care Teams Internet Network Specialist Relationship Specialty Start Date End Date Anmol Garza MD [address] [facility] [address] [place] [address] PCP - General Family Medicine 05/11/20
[2025-03-31 02:30] LABS: MANUAL DIFF FLAG NO
[2025-03-31 02:31] LABS: Hematocrit 37.1 % (37.0-47.0); Hemoglobin 12.7 g/dl (12.0-16.0); Imm Gran Abs Auto 0.03 X10*3/uL (0.00-0.03); Imm Gran Pct Auto 0.3 % (0.0-0.4); Lymphocytes Absolute Auto 2.5 X10*3/uL (1.2-4.9); Mean Corpuscular HGB Conc 34.2 g/dl (31.0-35.0); Mean Corpuscular Hemoglobin 31.0 pg (27.0-33.0); Mean Corpuscular Volume 90.5 fL (80.0-98.0); NRBC Abs Auto 0.000 X10*3/uL (0.0-0.012); NRBC Pct Auto 0.0 /100WBC (0.0-0.2); Platelet Count 336 X10*3/uL (160-400); Red Blood Count 4.10 X10*6/uL (4.20-5.50); White Blood Count 8.8 X10*3/uL (4.8-10.8)
--- NOTE | 2025-03-31 02:45 | ED.GENADULT ---
HPI - General Adult General Chief complaint: General Medical Stated complaint: not feeling well Time Seen by Provider: 03/31/25 01:57 Source: patient Mode of arrival: ambulatory Limitations: no limitations History of Present Illness ED Provider: Dr. Uzma Ovalle HPI narrative: Patient comes to the emergency room complaining of hyponatremia. The patient states that she had blood work done today which showed a sodium level of 133. Patient complaining of intermittent headache which she had earlier today but resolved at this time. Also, complaining of intermittent feeling of tingling all over the body and feeling floaty and complaining of pain all over her body. However, at this time, patient states that she has no numbness, tingling, weakness or headache. Patient states that she is known to have multiple sclerosis and is being seen at [facility] for this condition. However, patient states that her main concern today is that her sodium is low. 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 The patient mentioned that she gets prescribed sodium tablets but did not take them. Related Data Home Medications ?Medication ?Instructions ?Recorded ?Confirmed albuterol sulfate 90 mcg/actuation 1 inh inhalation Q4-6H PRN Wheezing 01/10/22 03/17/25 breath activated powder inhaler baclofen 10 mg tablet 25 mg PO TID 01/10/22 03/17/25 carbidopa 25 mg tablet 25 mg PO TID 01/10/22 03/17/25 cholecalciferol (vitamin D3) 50 50 mcg PO DAILY 01/10/22 03/17/25 mcg (2,000 unit) capsule docusate sodium 100 mg capsule 100 mg PO DAILY 01/10/22 03/17/25 (Colace) drospirenone (contraceptive) 4 mg 1 tab PO DAILY 01/10/22 03/17/25 (28) tablet (Slynd) duloxetine 60 mg capsule,delayed 60 mg PO DAILY 01/10/22 03/17/25 release gabapentin 300 mg capsule 900 mg PO TID PRN Pain 01/10/22 03/17/25 levocetirizine 5 mg tablet 10 mg PO BID 01/10/22 03/17/25 simethicone 125 mg capsule (Gas-X 250 mg PO BID PRN Constipation 01/10/22 03/17/25 Extra Strength) tizanidine 4 mg tablet 4 mg PO TID 02/15/22 03/17/25 oxcarbazepine 300 mg tablet 300 mg PO BEDTIME 03/17/25 03/17/25 oxycodone 10 mg tablet,crush 10 mg PO BID 03/17/25 03/17/25 resistant,extended release 12 hr oxycodone 10 mg tablet,crush 10 mg PO Q12H 03/17/25 03/17/25 resistant,extended release 12 hr (OxyContin) sennosides 8.6 mg capsule (senna) 17.2 mg PO ONCE 03/17/25 03/17/25 Previous Rx's ?Medication ?Instructions ?Recorded Magic Mouthwash 10 ml PO TID PRN pain (scale score 03/17/25 Diphen/Lido/Antacid 1:1:1 240 mL 4-6) 7 days #210 mL suspension linaclotide 72 mcg capsule 72 mcg PO QAM 30 days #30 caps 03/17/25 (Linzess) Allergies Allergy/AdvReac Type Severity Reaction Status Date / Time cephalexin (CEPHALEXIN) Allergy Intermediate Rash Verified 03/31/25 00:48 erythromycin base Allergy Intermediate Rash/vomiti Verified 03/31/25 00:48 (ERYTHROMYCIN BASE) ng haloperidol (From HALDOL) Allergy Intermediate EYE ISSUES Verified 03/31/25 00:48 meclizine (MECLIZINE) Allergy Intermediate Vomiting Verified 03/31/25 00:48 Penicillins (PENICILLINS) Allergy Intermediate Rash/vomiti Verified 03/31/25 00:48 ng promethazine (Phenergan) Allergy Intermediate Vomiting Verified 03/31/25 00:48 Sulfa (Sulfonamide Allergy Intermediate Rash Verified 03/31/25 00:48 Antibiotics) sulfamethoxazole (From Allergy Intermediate Rash Verified 03/31/25 00:48 BACTRIM) trimethoprim (From BACTRIM) Allergy Intermediate Rash Verified 03/31/25 00:48 famotidine Allergy Mild Vomiting Verified 03/31/25 00:48 lorazepam (From ATIVAN) AdvReac Intermediate PANIC Verified 03/31/25 00:48 ATTACKS/INCREASED ANXIETY methylprednisolone AdvReac Intermediate HYSTERIA, Verified 03/31/25 00:48 (METHYLPREDNISOLONE) Psychosis prednisone (PREDNISONE) AdvReac Intermediate Hallucinati Verified 03/31/25 00:48 ons sertraline (From ZOLOFT) AdvReac Intermediate Depression Verified 03/31/25 00:48 doxycycline AdvReac Vomiting Verified 03/31/25 00:48 droperidol Allergy Severe Anaphylaxis Uncoded 03/31/25 00:48 steroids AdvReac Mild psychosis Uncoded 03/31/25 00:48 Review of Systems Review of Systems: Constitutional : No Weight loss, No Fever, No Chills, No Night Sweats, ENT/Mouth : No Hearing loss, No Ear Pain, No Nasal Congestion, No Sinus Pain, No Hoarseness, No sore throat, No Rhinorrhea, No Swallowing Difficulty Eyes: No Eye Pain, No Swelling, No Redness, No Foreign Body, No Discharge, No Vision Changes, complaining of intermittent blurred vision but not at this time. Cardiovascular : Patient denies chest pain, No SOB, No Dyspnea on Exertion, No Orthopnea, No Edema, No Palpitations Respiratory : No Cough, No Sputum, No Wheezing, No Smoke Exposure, No Dyspnea Gastrointestinal : No Nausea, No Vomiting, No Diarrhea, No Constipation, No abdominal Pain, No Hematochezia, No Melena Genitourinary : no irregular bleeding, No Dysuria, No Urinary Frequency, No Hematuria, No Urinary Incontinence, No Urgency, No Flank Pain, No Urinary Flow Changes, No Hesitancy Musculoskeletal : Complaining of chronic pain all over her body. No Myalgias, No Joint Swelling Skin : No Skin Lesions, No rash Neuro : No Weakness, No Numbness, at this time denies paresthesias, No Loss of Consciousness, No Dizziness, complaining of headaches but not at this time Psych : No Anxiety/Panic, No Depression, No SI/HI/AH/VH, No Social Issues, Heme/Lymph: No Bruising, No Bleeding,No Lymphadenopathy Endocrine : No Polyuria, No Polydipsia, No Temperature Intolerance [facility] Past Medical History Medical History Multiple sclerosis Mast cell activation syndrome Celiac disease Cyclical vomiting syndrome Surgical History Tubal ligation status Hx of colonoscopy History of esophagogastroduodenoscopy (EGD) Family History Family History Father Peripheral arterial disease Maternal Grandfather Peripheral arterial disease Paternal Grandfather Peripheral arterial disease Social History Social History Patient Tobacco Use Status: Current everyday Tobacco user Cigarettes Per Day: 5 Substance Use Type: Marijuana Advance Directives: No Physical Exam ED Exam Exam: Appearance: Alert. Oriented X3. No acute distress. Well-appearing, looking at videos on her phone Eyes: Pupils equal, round and reactive to light. ENT: Pharynx normal. Neck: Normal inspection. Neck supple. No lymph nodes noted. No crepitus CVS: Normal heart rate and rhythm. Pulses normal. Normal S1 and S2 Respiratory: No respiratory distress. Breath sounds normal. No Wheezing. No rales Abdomen: Soft and nontender. No rigidity. No distention. Skin: Skin warm and dry. Normal skin color. Normal skin turgor. Extremities: No lower extremity edema. No Lacerations. No Rash Neuro: Oriented X 3. No motor deficit. No sensory deficit. Moving all extremities. No slurred speech. CN 2 through 12 grossly intact Psych: calm, cooperative, normal affect Vital Signs: Vital Signs - 24 hr 03/31/25 00:46 03/31/25 05:46 Temperature 97.7 F 97.7 F Pulse Rate 85 85 Respiratory Rate 20 20 Blood Pressure 119/77 119/77 Pulse Oximetry 98 98 Oxygen Delivery Method Room Air Room Air BMI result Body Mass Index 24.2 Course Course Course Narrative: Patient's seems to be comfortable, watching movies on her phone. Patient ordered two hamburgers, fries and soda which she is eating in her room Patient's nurse asked her to not eat until we have the workup completed, especially since patient may have a sodium related condition. I was informed that despite this recommendation, patient continued eating. Patient brought in a copy of her labs: sodium was normal, 133. I discussed with the patient that for reassurance we will obtain a new set of labs and address any electrolyte abnormalities if indicated. Patient agrees with plan Patient is currently complaining how poorly she was treated today. Patient complaining about the outboard motor assembler at the emergency department, the triage nurse, the charge nurse, about the tech. I discussed the above-mentioned with the patient's nurse/charge nurse. According to the patient's nurse/charge nurse and tech, so far they have had a normal interaction with the patient. It was noted that there is a wheelchair in the patient's room. I asked the patient if she is experiencing any numbness, tingling or weakness at this time. The patient denies any of those symptoms, patient states that she is in a lot of bone pain. Patient explains that recently she received a double dose of methotrexate and believes it went into her bone marrow which is causing excruciating pain all over her bones also, patient states that she has been experiencing chronic hip pain. The patient verbalized that she is not expecting any pain medication. Medical Decision Making Medical Decision Making [facility] Narrative: My interpretation of EKG: Normal sinus rhythm, heart rate 68, no ST segment depression or elevation, no T-wave inversion, QTC 412 My interpretation of labs: No significant abnormality in patient's hematology or chemistry, sodium is normal at 135. Troponin within normal limits. ETOH negative. Serology negative for COVID and influenza. At this time, patient denies blurred vision. Patient states that she has had in the past. At this time, patient states that her vision is normal and has experienced in the past blurred vision. During today's visit, the patient has been watching movies. I discussed with the patient that at this time, there are no acute findings in her labs and thoroughly discussed with her that she does need follow up appointments and needs to be seen by the appropriate specialist. Patient instructed to follow-up with her primary care physician Prior to discharge, patient states that she is concerned about her urine analysis from earlier today, patient states that is showed an abnormal specific gravity. I offered to the patient a urinalysis. Patient mentioned that she has frequent urination, no hematuria or dysuria. We asked the patient how many times has she urinated today, the patient stated that she urinated a couple of times today. The urinalysis negative for ketones, normal pH, normal specific gravity, no blood, no white blood cells, no bacteria. Urine is clear color, Trace leukocyte esterase, nonspecific. At this time, antibiotics not indicated. Once again we tried to discharge the patient and patient states that she is not satisfied with the urinalysis results and wants a urine osmolality. At this time, it is not clinically indicated. I was approached by our charge nurse and the clinical coordinator. I was informed that in her previous visit, it was very difficult to discharge the patient, she became very belligerent and refused to be discharged. Security had to be involved is for the patient in her previous visit. They are concerned that at this time, the patient is escalating, just like in her previous visit. Overall, patient has multiple complaints. At this time, there is no acute abnormality. I believe that patient has significant anxiety about her health issues. Patient has history of MS. However, at this time, based on the description of her symptoms, it does not seem that patient has a multiple sclerosis exacerbation. Patient is complaining of bone pain, patient believes is secondary to a double dose of methotrexate that she took a few days ago. Records from [facility] has been requested and reviewed -on 09/01/2024, an MRI of the thoracic spine was done, showed no cord signal abnormality, cord compression, stenosis or acute abnormality of the thoracic spine -an MRI of the thoracic spine was repeated on 01/27/2025: No new compression fractures or marrow edema of the thoracic spine. No new cord signal abnormality -MRI of 07/08/2024: No evidence of progressive disease, no change in multiple white matter lesions. No evidence of plaques in the cervical cord I spent a significant amount of time with the patient reassuring her and going over the lab results. At this time, the patient is stable, vitals are stable, labs are reassuring. Patient instructed to follow-up with her primary care physician, who may refer the patient to different specialist per PCP's discretion The patient states that she is afraid of going to sleep because the tip of the tip of her nose gets cold and feels a cold sensation throughout her body and makes her bones hurt. Patient states that she has been told this is because of her dysautonomia which may be acting up worse at night causing her to have this night symptoms. Patient requesting that we do some kind of test to check the blood flow to her brain. Currently, the patient is not experiencing any CVA/TIA symptoms. A CTA is not indicated at this time. Patient states that she has been seen by specialists, patient states that they were talking about starting her on a blood pressure medication that would help her with the symptoms. However, patient admits that she has missed some of the follow-up appointments for various reasons. I discussed with the patient that given her multiple medical conditions and lack of indication at si time to start a new medication, we will not start any new treatment. I discussed with the patient that she does need close follow-up with her PCP and her pecialist. Overall, at this time I do not believe that at this time, the patient has any acute medical diagnosis other than severe anxiety about her health. Every time that we address a symptom and make clarifications, the patient wants to address at different one, which we do. We have tried to discharge the patient has several times, it has been 2 hours since we originally tried to discharge the patient. However, patient keeps coming up with new complaints, which we do address. Patient states that she has been seen by multiple specialists. And she is not getting any answers. Patient was reassured that in today's visit, her labs and vitals are within normal limits, and there are no acute health conditions that need to be emergently addressed. We acknowledge that she has multiple chronic conditions, but at this time, we can not offer her a specific cure. Patient insists in repeating her symptoms over and over again despite multiple conversations and investing a long time with the patient. Patient complaining that we are not listening to her, although as mentioned above, we have spent a considerable amount of time talking with the patient explaining things. However, the patient is not satisfied in any way. Once again we tried to discharge the patient. I was informed by the patient's nurse that the patient does not agree with the diagnosis of discharge. I do understand that patient has multiple chronic conditions which need follow-up and it is reasonable that the patient is anxious. However, at this time, there are no acute findings or acute diagnosis. The results were discussed multiple times thoroughly with the patient. In my opinion, this is the most proper diagnosis for the patient, and I declined the patient's request to change the final diagnosis. For the patient's benefit, I strongly recommend that the patient's health related anxiety is addressed rather than dismissed. From patient's previous notes, seems that other specialists have been involved in patient's care and they are aware how difficult the patient can be. Seems that the easiest thing to do is to please the patient, yet not the right thing to do. The patient may have undiagnosed mental health conditions, which may need treatment to improve the patient's overall well being. This can be done in an outpatient setting and through her primary care physician. I believe that feeding into patient's anxiety and unreasonable requests would further deteriorate simultaneously the patient's mental health and physical health. Patient keeps requesting that we add-on multiple labs to her current workup. At this time, the additional work up is noncontributory to today's visit and not emergent in any way. These requests can be certainly obtained in an outpatient setting. The patient states that she has close follow-up with her PCP, and is seen almost on a weekly basis. Patient states that she refuses to leave until all of her requests are met. Overall, initially, we had a fairly normal interaction with the patient, but at the time of discharge, everything changed. Every time that we tried to go in to discharge the patient, patient had a new complaint, with a medical or about the staff, including from previous visits. So far it has been 2 hours that we have tried to discharge the patient. Every time that either me or the patient's charge nurse/nurse tries to discharge the patient, a new request, symptom or complaint arises. I reviewed patient's previous notes. Seems that the patient's previous ED visit was similar to today: a difficult encounter between the provider and the patient, patient becoming belligerent, refusing to be discharged, security needed to be involved The patient's nurse/charge nurse tried to discharge the patient and told her to ?fuck off . Patient became very belligerent with staff and security, patient refused to leave. Unfortunately, patient's behavior at the time of discharge seems to be a repetitive occurrence Differential Diagnosis Differential Diagnoses: The differential diagnosis associated with the presentation includes (Hyponatremia, viral syndrome, anxiety, hypochondriasis) Lab Data MDM Lab Attestation statement: I reviewed the patient's lab results. 03/31/25 02:21 03/31/25 02:21 Labs: Lab Results 03/31/25 03/31/25 Range/Units 02:21 04:12 WBC 8.8 (4.8-10.8) X10*3/uL RBC 4.10 L (4.20-5.50) X10*6/uL Hgb 12.7 (12.0-16.0) g/dl Hct 37.1 (37.0-47.0) % MCV 90.5 (80.0-98.0) fL MCH 31.0 (27.0-33.0) pg MCHC 34.2 (31.0-35.0) g/dl RDW 14.6 (11.0-16.0) % Plt Count 336 (160-400) X10*3/uL MPV 9.6 (9.4-12.3) fL Immature Gran % (Auto) 0.3 (0.0-0.4) % Neut % (Auto) 54.4 (45-73) % Lymph % (Auto) 28.0 (20-40) % [place] % (Auto) 8.1 (2-11) % Eos % (Auto) 8.2 H (0-4) % Baso % (Auto) 1.0 (0-2) % Lymph # (Auto) 2.5 (1.2-4.9) X10*3/uL [place] # (Auto) 0.7 (0.1-1.2) X10*3/uL Eos # (Auto) 0.7 H (0.0-0.4) X10*3/uL Baso # (Auto) 0.1 (0.0-0.2) X10*3/uL Abs Immat Gran (auto) 0.03 (0.00-0.03) X10*3/uL Absolute Neuts (auto) 4.8 (2.0-8.3) x10*3/uL Absolute Nucleated RBC 0.000 (0.0-0.012) X10*3/uL Nucleated RBC % (auto) 0.0 (0.0-0.2) /100WBC Sodium 135 (135-145) mmol/L Potassium 4.6 (3.3-5.1) mmol/L Chloride 103 (96-108) mmol/L Carbon Dioxide 23 (22-29) mmol/L Anion Gap 14 (12-20) BUN 12 (9-16) mg/dL Creatinine 0.59 (0.5-1.4) mg/dL Estim Creat Clear Calc 116.3 Estimated GFR > 60 Random Glucose 83 (60-115) mg/dL Calcium 9.6 (8.4-10.2) mg/dL Magnesium 2.2 (1.6-2.6) mg/dL Total Bilirubin 0.2 (0.0-1.0) mg/dL Direct Bilirubin < 0.2 (0.0-0.5) mg/dL AST 23 (5-31) U/L ALT < 6 (0-31) U/L Alkaline Phosphatase 88 (39-117) U/L Troponin I High Sens < 2.7 (<3.5-17.0) ng/L Total Protein 7.1 (6.5-8.0) g/dL Albumin 4.7 (3.5-5.0) g/dL Urine Color Yellow Urine Appearance Clear Urine pH 6.5 (5.0-9.0) Ur Specific [place] 1.020 (1.005-1.025) Urine Protein Negative (Neg-Trace) mg/dL Urine Glucose (UA) Negative (Negative) mg/dL Urine Ketones Negative (Negative) mg/dL Urine Blood Negative (Negative) Urine Nitrite Negative (Negative) Ur Leukocyte Esterase Trace H (Negative) Urine RBC 0-2 (0-2) /HPF Urine WBC 0-5 (0-5) /HPF Ur Squamous Epith Cells 0-2 (0-2) /HPF Urine Bacteria None Seen (None Seen) Hyaline Casts 0-2 (0-2) /LPF Urine Opiates Screen POSITIVE H (Not Detect) Ur Buprenorphine Scrn Not Detected (Not Detect) ng/mL Ur Oxycodone Screen Positive H (Not Detect) ng/mL Urine Methadone Screen Not Detected (Not Detect) ng/mL Urine Fentanyl Screen Not Detected (Not Detect) Ur Barbiturates Screen Not Detected (Not Detect) Ur Phencyclidine Scrn Not Detected (Not Detect) Ur Amphetamines Screen Not Detected (Not Detect) U Benzodiazepines Scrn Not Detected (Not Detect) Urine Cocaine Screen Not Detected (Not Detect) U Marijuana (THC) Screen POSITIVE H (Not Detect) Ethyl Alcohol < 10 mg/dL COVID-19 (TERRA) Negative (Negative) COVID-19 Clin Com See Note Influenza Type A (AKASH) Negative (Negative) Influenza Type B (AKASH) Negative (Negative) Influenza A & B Note See Note Critical Care Time Critical Care Time Critical Care Time: Yes Total Critical Care Time: 90 Attestation: I have personally provided critical care time. Time includes review of lab data, radiology results, discussion with consultants, and monitoring for potential decompensation. Intervention performed as documented. Discharge Plan Discharge Clinical Impression: Anxiety about health Patient Disposition: Home, Self-Care Instructions: Anxiety (ED) Additional Instructions: Please follow-up with your primary care physician tomorrow. If you have any worsening or new symptoms, please return to the emergency room or call 911 Prescriptions: No Action tizanidine 4 mg Tablet 4 mg PO TID albuterol sulfate 90 mcg/actuation aerosol powdr breath activated 1 inh inhalation Q4-6H PRN (Reason: Wheezing) baclofen 10 mg tablet 25 mg PO TID gabapentin 300 mg capsule 900 mg PO TID PRN (Reason: Pain) carbidopa 25 mg tablet 25 mg PO TID levocetirizine 5 mg tablet 10 mg PO BID duloxetine 60 mg capsule,delayed release(DR/EC) 60 mg PO DAILY Slynd 4 mg (28) tablet 1 tab PO DAILY cholecalciferol (vitamin D3) 50 mcg (2,000 unit) capsule 50 mcg PO DAILY docusate sodium [Colace] 100 mg capsule 100 mg PO DAILY simethicone [Gas-X Extra Strength] 125 mg capsule 250 mg PO BID PRN (Reason: Constipation) oxcarbazepine 300 mg tablet 300 mg PO BEDTIME senna 8.6 mg capsule 17.2 mg PO ONCE Patient Comments: at bedtime oxycodone 10 mg tablet,oral only,ext.rel.12 hr 10 mg PO BID Magic Mouthwash Diphen/Lido/Antacid 1:1:1 240 mL suspension 10 ml PO TID PRN (Reason: pain (scale score 4-6)) 7 Days Qty: 210 0RF Rx Instructions: Lidocaine Viscous 2 % 80mL; diphenhydramine 12.5 mg/5 mL 80mL; aluminum-mag hydrox-simeth [id number]/5mL 80mL SWISH & SPIT oxycodone [OxyContin] 10 mg tablet,oral only,ext.rel.12 hr 10 mg PO Q12H Linzess 72 mcg capsule 72 mcg PO QAM 30 Days Qty: 30 3RF Interventions: ED Discharge Assessment Last Done: 03/31/25 05:46 Discharge Date/Time: 03/31/25 05:47 Print Language: Bengali
--- NOTE | 2025-03-31 02:45 | PC.NURSE ---
patternmaker hand to bedside to find pt laying in the the stretcher eating a [employer] meal while watching a show on her cell phone that was positioned comfortably in her lap. the pt did not appear to express any outward signs of distress or discomfort and was made aware that she should not eat or drink anything until cleared or given the okay by the provider which she apologized for. She added that she had not been able to eat all day and due to her celiac disease she cannot tolerate any of our food and that was the only food item she could eat.... The pt states that she has intermittent blurry vision, feels as though her bones hurt due to her double methotrexate dose and how she has expectations to get her sodium fixed, vision issues resolved and chest/bone pain to be treated before going into detail about recent elevated and unheard of lab values which she states her dr told her where fine, but she knows they are not. senior product analyst explained to the patient that we will run all appropriate tests however our goal and primary objective is to rule out any urgent/emergent causes or disease processes that require immediate/life saving interventions. Pt verbalized understanding, bedside visitor was noted to make smart remarks under his breath.. pt advised to refrain from eating any additional food items at this time.
[2025-03-31 02:52] LABS: COVID-19 Test Negative (Negative); IDNOW Serial# 55D5AD1C; IDNOW Serial# 58CA691E; Influenza B2 Negative (Negative)
[2025-03-31 02:56] LABS: Alanine Aminotransferase < 6 U/L (0-31); Albumin Level 4.7 g/dL (3.5-5.0); Alkaline Phosphatase 88 U/L (39-117); Anion Gap 14 (12-20); Aspartate Amino Transferase 23 U/L (5-31); Blood Urea Nitrogen 12 mg/dL (9-16); Calcium 9.6 mg/dL (8.4-10.2); Carbon Dioxide 23 mmol/L (22-29); Chloride 103 mmol/L (96-108); Creatinine Clr Calc Pharmacy 116.3; Estimated Glomerular Filt Rate > 60; Magnesium 2.2 mg/dL (1.6-2.6); Potassium 4.6 mmol/L (3.3-5.1); Sodium 135 mmol/L (135-145); Total Protein 7.1 g/dL (6.5-8.0); Troponin-I High Sensitivity < 2.7 ng/L (<3.5-17.0)
--- NOTE | 2025-03-31 04:14 | PC.NURSE ---
rcis to bedside to discuss plan for dc. Pt expressed her dissatisfaction with this plan and went on to further explain additional diagnosis and clinical symptoms that were not previously reported. Pt conversing freely, speaking in full/complete sentences without distress noted. 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 This RN spoke with the MD regarding the pt's concerns and was advised that a clinical diagnosis of SIADH is more than a single lab value which I shared with the patient. The provider was willing to allow for a UA to be entered/tested here prior to discharge. UA obtained, pt opted to use a bedside commode. Each time this RN is in the room, the pt presents a new medical condition/symptom that she states she is battling and/or has which ultimately is the driving force behind why she is afraid to go home as she believes something is wrong . The pt has been advised to follow up with her PCP and specialist by ED
[2025-03-31 04:17] LABS: Appearance Urine Clear; Glucose Urine UA Negative (Negative); PH 6.5 (5.0-9.0); Specific Gravity - Urine 1.020 (1.005-1.025); UMIC TRIGGER UACC YES
[2025-03-31 04:30] LABS: Cannabinoid Screen Urine POSITIVE (Not Detect)
--- NOTE | 2025-03-31 05:19 | PC.NURSE ---
ornamental metal erector to bedside and nurses station numerous times to speak with the pt about her concerns and continued questions for the provdier. The pt expressed concerns surrounding the listed reason she was seen, decision surrounding discharge, and recommendation to follow up with her PCP/specialist on an outpatient basis as there is nothing urgent/emergent at this time that can or needs to be done on her behalf. This RN went back into the pt's room with her dc paperwork after the UA results were received and provider cleared her for dc, at which time she requested to have her UA results printed. This RN explained how staff do no print results but she could outreach medical records in the morning to have a copy of them. When that option was not received well, this RN offered to have registration go into the room and get her set up with the patient portal which will allow her to see/access all of her labs/images/etc. Shortly there after this RN was called back into the room and the pt expressed her desires to have additional tests ran that the ED provider did not feel were indicated based upon the pt's labs and assessment. The pt became upset, demanding that the test be ran adding that I will leave I just want the test run . Per MD, RN relayed the message that the the test would not be ordered as it was not indicated and that she could follow up with her PCP in the morning. The dc document was then reviewed; and she once again expressed her dissatisfaction with the listed you were seen today for reason and she was made aware that the provider had declined to change the verbiage and the pt expressed how she did not like it because It makes me sound crazy . The pt stated that she wanted to speak to someone above her and this RN made the pt aware that there were no other providers above the primary MD available at this time, the pt then requested to speak to the charge nurse at which time this RN made her title known officially. This RN offered to have the senior warehouse clerk speak with the patient however made it known that the senior warehouse clerk does not oversee the medical providers and could not force and/or override the Dr's documentation. The pt stated I refuse to leave until it is changed , this RN made her aware that she has been discharged for over 2 hours and at this time there was nothing further that could/would be done nor would this listed reason result in any new diagnosis or anything of that nature on her chart/record. The pt then stated That's why Dr Panchal was fired before going into detail pertaining to that situation that did not pertain to her current visit/issue. The pt was advised that she has the choice to sign her dc paperwork or not sign her paperwork however dc was still going to happen. The pt continued to refuse dc, this RN told her that she could leave the premises on her own or security could escort her out as they have had to in the past. The pt got upset, demanded this RN leave her room and said Fuck off . Security was called to bedside where the patient could be heard yelling and cursing at them giving them a hard time with dc. Pt was eventually wheeled out of the department by a friend awake, alert, oriented, conversing freely and without acute distress.
[2025-03-31 05:46] VITALS: BP 119/77; PULSE 85; RESP 20; TEMP 36.5; O2SAT 98
--- NOTE | 2025-05-13 11:25 | ED.GENADULT ---
HPI - General Adult General Chief complaint: General Medical Stated complaint: not feeling well Time Seen by Provider: 03/31/25 01:57 Source: patient Mode of arrival: ambulatory Limitations: no limitations Related Data Home Medications ?Medication ?Instructions ?Recorded ?Confirmed albuterol sulfate 90 mcg/actuation 1 inh inhalation Q4-6H PRN Wheezing 01/10/22 03/17/25 breath activated powder inhaler baclofen 10 mg tablet 25 mg PO TID 01/10/22 03/17/25 carbidopa 25 mg tablet 25 mg PO TID 01/10/22 03/17/25 cholecalciferol (vitamin D3) 50 50 mcg PO DAILY 01/10/22 03/17/25 mcg (2,000 unit) capsule docusate sodium 100 mg capsule 100 mg PO DAILY 01/10/22 03/17/25 (Colace) drospirenone (contraceptive) 4 mg 1 tab PO DAILY 01/10/22 03/17/25 (28) tablet (Slynd) duloxetine 60 mg capsule,delayed 60 mg PO DAILY 01/10/22 03/17/25 release gabapentin 300 mg capsule 900 mg PO TID PRN Pain 01/10/22 03/17/25 levocetirizine 5 mg tablet 10 mg PO BID 01/10/22 03/17/25 simethicone 125 mg capsule (Gas-X 250 mg PO BID PRN Constipation 01/10/22 03/17/25 Extra Strength) tizanidine 4 mg tablet 4 mg PO TID 02/15/22 03/17/25 oxcarbazepine 300 mg tablet 300 mg PO BEDTIME 03/17/25 03/17/25 oxycodone 10 mg tablet,crush 10 mg PO BID 03/17/25 03/17/25 resistant,extended release 12 hr oxycodone 10 mg tablet,crush 10 mg PO Q12H 03/17/25 03/17/25 resistant,extended release 12 hr (OxyContin) sennosides 8.6 mg capsule (senna) 17.2 mg PO ONCE 03/17/25 03/17/25 Previous Rx's ?Medication ?Instructions ?Recorded Magic Mouthwash 10 ml PO TID PRN pain (scale score 03/17/25 Diphen/Lido/Antacid 1:1:1 240 mL 4-6) 7 days #210 mL suspension linaclotide 72 mcg capsule 72 mcg PO QAM 30 days #30 caps 03/17/25 (Linzess) Allergies Allergy/AdvReac Type Severity Reaction Status Date / Time cephalexin (CEPHALEXIN) Allergy Intermediate Rash Verified 03/31/25 00:48 erythromycin base Allergy Intermediate Rash/vomiti Verified 03/31/25 00:48 (ERYTHROMYCIN BASE) ng haloperidol (From HALDOL) Allergy Intermediate EYE ISSUES Verified 03/31/25 00:48 meclizine (MECLIZINE) Allergy Intermediate Vomiting Verified 03/31/25 00:48 Penicillins (PENICILLINS) Allergy Intermediate Rash/vomiti Verified 03/31/25 00:48 ng promethazine (Phenergan) Allergy Intermediate Vomiting Verified 03/31/25 00:48 Sulfa (Sulfonamide Allergy Intermediate Rash Verified 03/31/25 00:48 Antibiotics) sulfamethoxazole (From Allergy Intermediate Rash Verified 03/31/25 00:48 BACTRIM) trimethoprim (From BACTRIM) Allergy Intermediate Rash Verified 03/31/25 00:48 famotidine Allergy Mild Vomiting Verified 03/31/25 00:48 lorazepam (From ATIVAN) AdvReac Intermediate PANIC Verified 03/31/25 00:48 ATTACKS/INCREASED ANXIETY methylprednisolone AdvReac Intermediate HYSTERIA, Verified 03/31/25 00:48 (METHYLPREDNISOLONE) Psychosis prednisone (PREDNISONE) AdvReac Intermediate Hallucinati Verified 03/31/25 00:48 ons sertraline (From ZOLOFT) AdvReac Intermediate Depression Verified 03/31/25 00:48 doxycycline AdvReac Vomiting Verified 03/31/25 00:48 droperidol Allergy Severe Anaphylaxis Uncoded 03/31/25 00:48 steroids AdvReac Mild psychosis Uncoded 03/31/25 00:48 PMFSH Past Medical History Medical History Multiple sclerosis Mast cell activation syndrome Celiac disease Cyclical vomiting syndrome Surgical History Tubal ligation status Hx of colonoscopy History of esophagogastroduodenoscopy (EGD) Family History Family History Father Peripheral arterial disease Maternal Grandfather Peripheral arterial disease Paternal Grandfather Peripheral arterial disease Social History Social History Patient Tobacco Use Status: Current everyday Tobacco user Cigarettes Per Day: 5 Substance Use Type: Marijuana Physical Exam ED Vital Signs: BMI result Body Mass Index 24.2 Medical Decision Making Lab Data 03/31/25 02:21 03/31/25 02:21 Labs: Lab Results 03/31/25 03/31/25 Range/Units 02:21 04:12 WBC 8.8 (4.8-10.8) X10*3/uL RBC 4.10 L (4.20-5.50) X10*6/uL Hgb 12.7 (12.0-16.0) g/dl Hct 37.1 (37.0-47.0) % MCV 90.5 (80.0-98.0) fL MCH 31.0 (27.0-33.0) pg MCHC 34.2 (31.0-35.0) g/dl RDW 14.6 (11.0-16.0) % Plt Count 336 (160-400) X10*3/uL MPV 9.6 (9.4-12.3) fL Immature Gran % (Auto) 0.3 (0.0-0.4) % Neut % (Auto) 54.4 (45-73) % Lymph % (Auto) 28.0 (20-40) % [place] % (Auto) 8.1 (2-11) % Eos % (Auto) 8.2 H (0-4) % Baso % (Auto) 1.0 (0-2) % Lymph # (Auto) 2.5 (1.2-4.9) X10*3/uL [place] # (Auto) 0.7 (0.1-1.2) X10*3/uL Eos # (Auto) 0.7 H (0.0-0.4) X10*3/uL Baso # (Auto) 0.1 (0.0-0.2) X10*3/uL Abs Immat Gran (auto) 0.03 (0.00-0.03) X10*3/uL Absolute Neuts (auto) 4.8 (2.0-8.3) x10*3/uL Absolute Nucleated RBC 0.000 (0.0-0.012) X10*3/uL Nucleated RBC % (auto) 0.0 (0.0-0.2) /100WBC Sodium 135 (135-145) mmol/L Potassium 4.6 (3.3-5.1) mmol/L Chloride 103 (96-108) mmol/L Carbon Dioxide 23 (22-29) mmol/L Anion Gap 14 (12-20) BUN 12 (9-16) mg/dL Creatinine 0.59 (0.5-1.4) mg/dL Estim Creat Clear Calc 116.3 Estimated GFR > 60 Random Glucose 83 (60-115) mg/dL Calcium 9.6 (8.4-10.2) mg/dL Magnesium 2.2 (1.6-2.6) mg/dL Total Bilirubin 0.2 (0.0-1.0) mg/dL Direct Bilirubin < 0.2 (0.0-0.5) mg/dL AST 23 (5-31) U/L ALT < 6 (0-31) U/L Alkaline Phosphatase 88 (39-117) U/L Troponin I High Sens < 2.7 (<3.5-17.0) ng/L Total Protein 7.1 (6.5-8.0) g/dL Albumin 4.7 (3.5-5.0) g/dL Urine Color Yellow Urine Appearance Clear Urine pH 6.5 (5.0-9.0) Ur Specific [place] 1.020 (1.005-1.025) Urine Protein Negative (Neg-Trace) mg/dL Urine Glucose (UA) Negative (Negative) mg/dL Urine Ketones Negative (Negative) mg/dL Urine Blood Negative (Negative) Urine Nitrite Negative (Negative) Ur Leukocyte Esterase Trace H (Negative) Urine RBC 0-2 (0-2) /HPF Urine WBC 0-5 (0-5) /HPF Ur Squamous Epith Cells 0-2 (0-2) /HPF Urine Bacteria None Seen (None Seen) Hyaline Casts 0-2 (0-2) /LPF Urine Opiates Screen POSITIVE H (Not Detect) Ur Buprenorphine Scrn Not Detected (Not Detect) ng/mL Ur Oxycodone Screen Positive H (Not Detect) ng/mL Urine Methadone Screen Not Detected (Not Detect) ng/mL Urine Fentanyl Screen Not Detected (Not Detect) Ur Barbiturates Screen Not Detected (Not Detect) Ur Phencyclidine Scrn Not Detected (Not Detect) Ur Amphetamines Screen Not Detected (Not Detect) U Benzodiazepines Scrn Not Detected (Not Detect) Urine Cocaine Screen Not Detected (Not Detect) U Marijuana (THC) Screen POSITIVE H (Not Detect) Ethyl Alcohol < 10 mg/dL COVID-19 (TERRA) Negative (Negative) COVID-19 Clin Com See Note Influenza Type A (AKASH) Negative (Negative) Influenza Type B (AKASH) Negative (Negative) Influenza A & B Note See Note Discharge Plan Discharge Clinical Impression: Anxiety about health Patient Disposition: Home, Self-Care Instructions: Anxiety (ED) Additional Instructions: Please follow-up with your primary care physician tomorrow. If you have any worsening or new symptoms, please return to the emergency room or call 911 Prescriptions: No Action tizanidine 4 mg Tablet 4 mg PO TID albuterol sulfate 90 mcg/actuation aerosol powdr breath activated 1 inh inhalation Q4-6H PRN (Reason: Wheezing) baclofen 10 mg tablet 25 mg PO TID gabapentin 300 mg capsule 900 mg PO TID PRN (Reason: Pain) carbidopa 25 mg tablet 25 mg PO TID levocetirizine 5 mg tablet 10 mg PO BID duloxetine 60 mg capsule,delayed release(DR/EC) 60 mg PO DAILY Slynd 4 mg (28) tablet 1 tab PO DAILY cholecalciferol (vitamin D3) 50 mcg (2,000 unit) capsule 50 mcg PO DAILY docusate sodium [Colace] 100 mg capsule 100 mg PO DAILY simethicone [Gas-X Extra Strength] 125 mg capsule 250 mg PO BID PRN (Reason: Constipation) oxcarbazepine 300 mg tablet 300 mg PO BEDTIME senna 8.6 mg capsule 17.2 mg PO ONCE Patient Comments: at bedtime oxycodone 10 mg tablet,oral only,ext.rel.12 hr 10 mg PO BID Magic Mouthwash Diphen/Lido/Antacid 1:1:1 240 mL suspension 10 ml PO TID PRN (Reason: pain (scale score 4-6)) 7 Days Qty: 210 0RF Rx Instructions: Lidocaine Viscous 2 % 80mL; diphenhydramine 12.5 mg/5 mL 80mL; aluminum-mag hydrox-simeth [id number]/5mL 80mL SWISH & SPIT oxycodone [OxyContin] 10 mg tablet,oral only,ext.rel.12 hr 10 mg PO Q12H Linzess 72 mcg capsule 72 mcg PO QAM 30 Days Qty: 30 3RF Interventions: ED Discharge Assessment Last Done: 03/31/25 05:46 Discharge Date/Time: 03/31/25 05:47 Print Language: Azeri
--- NOTE | 2025-05-13 11:26 | HO.PTCAREPLN ---
Patient Care Plan Patient Care Plan Details: [facility] EMERGENCY DEPARTMENT CARE PLAN Roxanne Parker 84 Patient presentation: Roxanne presents with many different varying complaints. She will often be worked up for one complaint and then on discharge she will disclose another complaint. She tends to have difficulty accepting discharge. She fires all staff involved in her care and usually files complaints against registration, techs, RNs, providers. She should never be evaluated alone. She sometimes utilizes a wheelchair for her MS. She should have appropriate work up but then it should be made clear she needs to disclose all issues on initial interview. PMH: Mast cell activation syndrome, cyclical vomiting syndrome, celiac disease, endometriosis, chronic abdominal pain and nausea and vomiting, dysphagia, MS, seizure, pill esophagitis, c/o concern for hyponatremia but recent labs stable. Prior admissions: We have no admissions at our facility. She does frequent [facility] and [facility] as well. She has seen our GI for 2nd opinion in the past and has requested repeat EGDs, her most recent EGD on Apr 30, [address] Llamas showed: 04/30/19 EGD SHOWED: ?ESOPHAGUS: Circumferential ulceration with thick exudate with adherent food in?the proximal esophagus at 20 to 25 cms. Ulceration is likely due to pill ?esophagitis related to use of Doxycycline. Adherent food was scrapped off and ?biopsies were obtained. ?STOMACH: Undigested food in the stomach. ?DUODENUM: Normal ?Plan ?ADDENDUM: BIOPSIES SHOWED: ?Esophagus, proximal, biopsy: Active esophagitis with ulcer, fibrinopurulent exudate and superficial fungal pseudohyphae and yeast forms consistent with Aleksandra species(highlighted by a PASD stain); negative for intestinal metaplasia and dysplasia. ?Biopsy results discussed with the pt by phone and she was prescribed Fluconazole for esophageal Candidiasis ED interventions: Reassurance is the mainstay of treatment. Please work up based off complaint but reiterate to patient that all complaints need to be disclosed on initial interview. Never interview patient alone please bring RN to bedside. Patient will complain and will fight discharge please reassure and instruct her to follow up with her outpatient providers if there is no emergent medical intervention needed. Follow up: ? Roxanne has her primary care doctor Anmol Garza MD. She should continue to follow up with him as planned. She occasionally sees Dr. Llamas for GI issues but also has a GI provider at [facility].
== END 2025-03-31 05:47 | disposition home or self-care (01) ==
PROVIDERS: Emergency Provider Emergency Medicine; PCP Family Medicine
DX: F41.9 Anxiety disorder, unspecified (principal); E87.1 Hypo-osmolality and hyponatremia; Z03.818 Encounter for observation for suspected exposure to other biological agents ruled out; R51.9 Headache, unspecified; G35.D Multiple sclerosis, unspecified; Z79.899 Other long term (current) drug therapy
CPT/HCPCS: 80048; 80076; 80307; 81001; 83735; 84484; 85025; 87502; 87635; 93005; 99283

== ENCOUNTER → 2025-03-31 01:59 | Outpatient (BNV) | payer OTHER, MEDICAID, SELFPAY | PROVIDERS: Emergency Provider Emergency Medicine; PCP Family Medicine; Visit Provider Internal Medicine | DX: R07.9 Chest pain, unspecified (principal) | CPT/HCPCS: 93010 ==